=== PATIENT | female | born 1965 | race Caucasian/White ===

== ENCOUNTER → 2016-07-16 | Outpatient (REF) | payer MEDICARE, MEDICAID ==
[~2016-07-16] MED LIST: /FENT50PA TD; ATEN25TA OR; ATEN50TA2 PO; BACL10TA2 PO; BIOT300T PO; CARA1TAB2 PO; CETI10TA OR; DYAZ37.5; DYAZ37.5 PO; ESTR0.5T; ESTR2TAB PO; FENT12PA TD; FIBER THERAPY PO; FLON0.05; GABA300C2 PO; GLUC500T3 OR; GLUC500T3 PO; IBUP600T PO; IBUP800T; IMIT50TA PO; KLOR10TA; KLOR10TA PO; LOPI600T PO; MULT1TAB8 PO; OMEP40CA2 PO; PRIL40CA PO; PROBIOTIC ACIDOPHILU; PROZ10CA PO; REGL10TA6 PO; REGL5TAB2 PO; SAVE100T PO; SAVE50TA PO; SAVELLA PO; SENN8.6T5 PO; SUCR1TA PO; TRAM50TA2 PO; VICO5TAB; VICODINES TAB PO; VITA500C14 PO; VITATAB11 PO; VITATAB73 PO; XANA0.25 OR; XANA0.25 PO; ZANA2CAP PO; ZANA4TAB PO; ZOFR8TAB PO; [UNRECOGNIZED DRUG - OTHER]
[2016-07-16 12:52] LABS: MEAN CORPUSCULAR HEMOGLOBIN 29.5 pg (27.0-33.0); MEAN CORPUSCULAR VOLUME 84.2 fl (80.0-96.0); RED CELL DISTRIBUTION WIDTH 13.9 % (11.5-14.5)
[2016-07-16 12:53] LABS: ALBUMIN 3.8 GM/DL (3.2-5.2); ALBUMIN/GLOBULIN RATIO 1.27 (1.00-1.93); ALKALINE PHOSPHATASE 88 U/L (45-117); ALT/SGPT 24 U/L (12-78); ANION GAP 10 MEQ/L (8-16); AST/SGOT 9 U/L (15-37); BILIRUBIN,TOTAL 0.3 MG/DL (0.2-1.0); BLOOD UREA NITROGEN 20 MG/DL (7-18); CALCIUM LEVEL 9.4 MG/DL (8.5-10.1); CARBON DIOXIDE LEVEL 25 MEQ/L (21-32); CHLORIDE LEVEL 107 MEQ/L (98-107); CHOLESTEROL LEVEL 193 MG/DL (<200); CREATININE FOR GFR 1.43 MG/DL (0.55-1.02); FREE T4 0.99 NG/DL (0.76-1.46); GLOMERULAR FILTRATION RATE 41.2 (>51); GLUCOSE, FASTING 85 MG/DL (70-105); MAGNESIUM LEVEL 1.9 MG/DL (1.8-2.4); POTASSIUM SERUM 3.7 MEQ/L (3.5-5.1); SODIUM LEVEL 142 MEQ/L (136-145); TOTAL PROTEIN 6.8 GM/DL (6.4-8.2); TRIGLYCERIDES LEVEL 433 MG/DL (<150)
== END ==
LOC: M SFHCADAM 08:53
PROVIDERS: ATTEND Physician Assistant
DX: F17.210 Nicotine dependence, cigarettes, uncomplicated (principal); I10 Essential (primary) hypertension; E04.1 Nontoxic single thyroid nodule; E78.2 Mixed hyperlipidemia; E87.6 Hypokalemia; F32.9 Major depressive disorder, single episode, unspecified; K21.9 Gastro-esophageal reflux disease without esophagitis; Z79.899 Other long term (current) drug therapy
CPT/HCPCS: 80053; 80061; 82306; 83735; 84439; 84443; 85027; G0463

== ENCOUNTER → 2016-07-23 | Outpatient (CLI) | payer MEDICARE, MEDICAID ==
--- NOTE | 2016-07-23 15:19 | REP ---
BILATERAL RENAL ULTRASOUND: 07/23/2016 CLINICAL HISTORY: Acute renal failure. COMPARISON: CT abdomen without contrast 10/09/2013, renal ultrasound 07/27/2002. FINDINGS: Sonographic evaluation of the kidneys performed shows the right kidney 10.7 x 5.1 x 5.2 cm. It has normal cortical thickness and echogenicity. There is no hydronephrosis or hydroureter. I see no echogenic stones with shadowing. There is no cyst or solid mass or contour abnormality of the kidney. No perinephric fluid. Left kidney measures 10.5 by 5.2 x 6.1 cm. There is a moderate hydronephrosis with dilatation of the calyces collecting system and renal pelvis. There is a very minimal hydroureter proximally in that course of the ureter which is not seen below it. The bladder is partially filled measuring 6.8 x 3.5 x 4.8 cm. There is a normal right ureteral jet. A week or minimal left ureteral jet is observed. IMPRESSION: 1. Bilaterally normal renal size, cortical echogenicity and thickness without solid or cystic mass. 2. There is a moderate left hydronephrosis and proximal left hydroureter. Ureters not seen beyond this region due to gas shadowing. No visible stone or mass within the collecting system on this ultrasound. 3. Cortical echogenicity and thickness normal in renal size maintained 4. Bladder with vigorous right ureteral jet, weak left ureteral jet. No other finding. Signed by Gabriel Antonio MD 07/23/2016 04:20 P
== END ==
LOC: M RAD 13:40
PROVIDERS: ATTEND Physician Assistant
DX: N13.30 Unspecified hydronephrosis (principal)

== ENCOUNTER → 2016-07-29 | Outpatient (REF) | payer MEDICARE, MEDICAID ==
[~2016-07-29] MED LIST changes: +BUPR75TA5 PO; +CETI10TA PO; +DRIS50002 PO; +GABA600T PO; +K-TA10TA2 PO; +MONT10TA2 PO; +OXYC1TAB23 PO; +SUMA50TA2 PO; +TIZA4CAP3 PO; +ZOFR20TA PO
== END ==
LOC: M SMT 16:57
PROVIDERS: ATTEND Nurse Practitioner Women's Health
DX: N13.30 Unspecified hydronephrosis (principal); R10.9 Unspecified abdominal pain; R11.0 Nausea
CPT/HCPCS: 81001; 87086; G0463

== ENCOUNTER → 2016-07-31 | Outpatient (REF) | payer MEDICARE, MEDICAID ==
[~2016-07-31] MED LIST changes: -BUPR75TA5 PO; -CETI10TA PO; -DRIS50002 PO; -GABA600T PO; -K-TA10TA2 PO; -MONT10TA2 PO; -OXYC1TAB23 PO; -SUMA50TA2 PO; -TIZA4CAP3 PO; -ZOFR20TA PO
[2016-07-31 19:38] LABS: BASO # 0.1 K/mm3 (0.0-0.2); BASO % 0.6 % (0.0-1.0); EOS # 0.6 K/mm3 (0.0-0.50); EOS % 4.1 % (0.0-3.0); LARGE UNSTAINED CELL # 0.2 K/mm3 (0.0-0.4); LARGE UNSTAINED CELL % 1.3 % (0.0-4.0); LYMPH # 4.4 K/mm3 (1.5-4.5); LYMPH % 30.9 % (24.0-44.0); MEAN CORPUSCULAR HGB CONC 33.8 g/dl (32.0-36.5); MEAN CORPUSCULAR VOLUME 85.6 fl (80.0-96.0); MONO # 0.7 K/mm3 (0.0-0.8); MONO % 4.9 % (0.0-5.0); NEUTROPHILS # 8.3 K/mm3 (1.8-7.7); NEUTROPHILS % 58.2 % (36.0-66.0); PLATELET COUNT, AUTOMATED 314 k/mm3 (150-450); RED CELL DISTRIBUTION WIDTH 13.8 % (11.5-14.5); WHITE BLOOD COUNT 14.2 K/mm3 (4.0-10.0)
[2016-07-31 19:45] LABS: ALBUMIN 4.2 GM/DL (3.2-5.2); ALBUMIN/GLOBULIN RATIO 1.27 (1.00-1.93); BILIRUBIN,TOTAL 0.3 MG/DL (0.2-1.0); CALCIUM LEVEL 9.3 MG/DL (8.5-10.1); CREATININE FOR GFR 1.32 MG/DL (0.55-1.02); GLOMERULAR FILTRATION RATE 45.2 (>51); POTASSIUM SERUM 3.3 MEQ/L (3.5-5.1); TOTAL PROTEIN 7.5 GM/DL (6.4-8.2)
== END ==
LOC: M SFHCADAM 14:32
PROVIDERS: ATTEND Physician Assistant
DX: N17.9 Acute kidney failure, unspecified (principal); R10.9 Unspecified abdominal pain

== ENCOUNTER → 2016-08-03 | Outpatient (CLI) | payer MEDICARE, MEDICAID ==
--- NOTE | 2016-08-03 10:08 | REP ---
CT abdomen and pelvis without IV or bowel contrast: Comparisons are 10/09/2013 and six and 04/19/2008. On the prior studies the the patient had multiple bilateral nonobstructing renal calculi. On the study today there is left hydronephrosis. There are no left renal calculi. However, there are multiple calculi in the mid left ureter, one above the other. The most inferior calculus is the largest calculus measuring 8 mm short axis by 14 mm long axis and is at the level of the upper portion of the left sacroiliac articulation. Just superior to this is a second calculus measuring 6 mm short axis by 11 mm long axis. There are multiple nonobstructing right renal calculi as previously. There are no right ureteral calculi. There is no right hydronephrosis. The visualized lung nelson are unremarkable. The unenhanced hepatic parenchyma is homogeneous. The hepatosteatosis identified on 10/09/2013 is not apparent today. The gallbladder, pancreas and spleen are unremarkable and unchanged. The adrenals are unremarkable and unchanged. The abdominal aorta is unremarkable and unchanged. Occasional l calcified atheroma is again noted incidentally. There is no bowel distension. Mesentery is unremarkable. Pelvis: The patient has a hysterectomy. The vaginal cuff and adnexa are unremarkable. The bladder is unremarkable. The pelvic bowel loops are unremarkable. The appendix is unremarkable. There is no ascites or adenopathy. Impression: There are least to obstructive calculi in the mid to distal left ureter at the level of the superior portion of the left sacroiliac articulation as described, accompanied by left hydronephrosis. No left renal calculi are identified. There are multiple nonobstructing right renal calculi. There is no right hydronephrosis. There are no right renal calculi. Signed by Bhanu Bradford MD 08/03/2016 09:59 A
== END ==
LOC: M RAD 09:09
PROVIDERS: ATTEND Physician Assistant
DX: N13.1 Hydronephrosis with ureteral stricture, not elsewhere classified (principal)

== ENCOUNTER → 2016-08-13 | Outpatient (CLI) | payer MEDICARE, MEDICAID ==
[~2016-08-13] MED LIST changes: +BUPR75TA5 PO; +CETI10TA PO; +DRIS50002 PO; +GABA600T PO; +K-TA10TA2 PO; +MONT10TA2 PO; +OXYC1TAB23 PO; +SUMA50TA2 PO; +TIZA4CAP3 PO; +ZOFR20TA PO
--- NOTE | 2016-08-13 09:44 | REP ---
TWO CHEST: Two views of the chest are performed and compared to prior studies, most recent of which is 10/09/2013. There is linear fibroatelectatic change in each lung base. There is no acute infiltrate. The heart is normal in size. The mediastinal silhouette is unremarkable and unchanged. There are minor degenerative changes of the spine. IMPRESSION: Mild bibasilar fibroatelectatic changes. No acute infiltrate. Signed by Bhanu Jerome MD 08/13/2016 04:49 P
[2016-08-13 12:28] LABS: INR 0.91
[2016-08-13 12:33] LABS: MEAN CORPUSCULAR HEMOGLOBIN 29.6 pg (27.0-33.0); MEAN CORPUSCULAR HGB CONC 34.4 g/dl (32.0-36.5); MEAN CORPUSCULAR VOLUME 86.2 fl (80.0-96.0); RED CELL DISTRIBUTION WIDTH 13.7 % (11.5-14.5); WHITE BLOOD COUNT 7.3 K/mm3 (4.0-10.0)
[2016-08-13 12:49] LABS: CALCIUM LEVEL 9.7 MG/DL (8.5-10.1); CREATININE FOR GFR 1.25 MG/DL (0.55-1.02); GLOMERULAR FILTRATION RATE 48.1 (>51); POTASSIUM SERUM 3.7 MEQ/L (3.5-5.1)
== END ==
LOC: M ADAMS 08:55
PROVIDERS: ATTEND Nurse Practitioner Women's Health
DX: Z01.818 Encounter for other preprocedural examination (principal); N13.2 Hydronephrosis with renal and ureteral calculous obstruction; N17.9 Acute kidney failure, unspecified; F17.200 Nicotine dependence, unspecified, uncomplicated; I10 Essential (primary) hypertension; J45.20 Mild intermittent asthma, uncomplicated; Z79.899 Other long term (current) drug therapy
CPT/HCPCS: 71020; 80048; 85027; 85610; 85730; G0463

== ENCOUNTER → 2016-08-17 | Day surgery (SDC) | payer MEDICARE, MEDICAID ==
[~2016-08-17] VITALS: Ht 162.6 cm; Wt 81.6 kg
[~2016-08-17] MED LIST changes: +CONRAY-60 60% 50ML VIAL (Q9961) As Ordered ONE; +LIDOCAINE 2% INJ 100 MG/5 ML SDV (FOR ANES.) As Ordered ONE; +LR 1,000 ML IV SCH; +METOCLOPRAMIDE INJ 10MG/2ML VIAL (J2765) IV PRN; +MIDAZOLAM INJ 2 MG/2 ML VIAL (J2250) As Ordered ONE; +ONDANSETRON 4MG/2ML VIAL (J2405) As Ordered ONE; +ONDANSETRON 4MG/2ML VIAL (J2405) IV PRN; +PERCOCET 5MG/325MG TAB PO PRN; +PROPOFOL 200 MG/20 ML VIAL As Ordered ONE; +diphenhydrAMINE INJ 50MG/ML VIAL (J1200) As Ordered ONE; +fentaNYL 100 MCG/2 ML INJECTION (J3010) As Ordered ONE; +fentaNYL 100 MCG/2 ML INJECTION (J3010) IV PRN; +oxyBUTYnin 5 MG TAB PO PRN
[2016-08-17] MEDS: LR 1,000 ML IV SCH ×2 (06:57→07:43)
--- NOTE | 2016-08-17 11:27 | REP ---
RETROGRADE PYELOGRAM: 08/17/2016 CLINICAL HISTORY: Left ureteral stone. COMPARISON: CT 08/03/2016. FINDINGS: Three images from C-arm fluoroscopy provided to Dr. Cuellar of the urology division. Initial image shows the catheter and wire in the ureter with the wire curving into the renal pelvis. Second image shows the proximal course of the pigtail stent coiled in the renal pelvis. Third image shows the distal coil of the left ureteral stent in the bladder. FLUOROSCOPY TIME: 27 seconds. Signed by Gabriel Antonio MD 08/17/2016 05:13 P
[2016-08-17 13:20] VITALS: BP 142/78
--- NOTE | 2016-08-17 14:31 | RO ---
DATE OF PROCEDURE: 08/17/2016 PREPROCEDURE DIAGNOSIS: Left ureteral stones. POSTPROCEDURE DIAGNOSIS: Left ureteral stones. PROCEDURE: Cystoscopy, left ureteroscopy with laser lithotripsy and basket extraction of stones, left retrograde pyelogram with intraoperative interpretation of images, left ureteral stent placement. SURGEON: Dr. Avni Cuellar PIPE LINE MAINTENANCE SUPERVISOR: None. ANESTHESIA: General. OPERATIVE INDICATIONS: This is a 51-year-old female who has been found to have a large obstructing left ureteral stone as well as a few smaller stones in the left ureter. She was also found to have a nonobstructing stone in the right kidney. It was recommended she be brought to the operating room today for treatment of the left sided ureteral stones. DESCRIPTION OF PROCEDURE: The patient was brought to the operating room where general anesthesia was induced. Prophylactic antibiotics were infused. She was then placed in dorsal lithotomy position and prepped and draped in the usual sterile fashion. A rigid cystoscope was inserted into the urethral meatus and advanced to the bladder. Once within the bladder, a wire was advanced up the left collecting system. Of note, the wire would not go past the distal left ureter. At this point, we went in with the ureteroscope and the distal ureter appeared to be completely obstructed by an impacted stone. At this point, a 200 micron laser fiber was utilized to fragment the stone. It took a moderate amount of time to keep fragmenting the stone until the stone was broken up in several smaller pieces. I was able to get into the more proximal ureter after the stone had been fragmented into several smaller pieces. At this point, the wire was advanced all the way up to the left collecting system. Of note, the proximal ureter was moderate to severely dilated. Also of note where the stone was impacted there was a moderate amount of scar tissue for at least a 1/2 cm to 1 cm in length in the distal left ureter. Ultimately, I was able to fragment all the stones and remove all the stones. After that was done, the more proximal ureter was examined and no additional stones were seen. At this point, the ureteroscope was withdrawn and the wire was utilized to advance the 7 Fijian x 22-32 cm JJ ureteral stent up the left collecting system. The wire was then removed and there were adequate curls of the stent in the left renal pelvis and the bladder. The bladder was then emptied of all fluids and this marked the conclusion of the procedure. The patient was then taken out of dorsal lithotomy position, awakened from anesthesia and transported to the recovery room in stable condition. ESTIMATED BLOOD LOSS: 0 mL. COMPLICATIONS: None. SPECIMEN: Kidney stone fragments. PLAN: I will plan to leave this patient's stent in place for at least three to four weeks given the moderate amount of scarring in the distal left ureter. The patient also has a 5-6 mm right kidney stone for which I will likely recommend an extracorporeal shockwave lithotripsy. This can be performed in three to four weeks and her left ureteral stent can be removed at the same time. THIAGO
== END | disposition home or self-care (01) ==
LOC: M SDC 06:05
PROVIDERS: ATTEND Urology
DX: N20.1 Calculus of ureter (principal); I10 Essential (primary) hypertension; M79.7 Fibromyalgia; F41.9 Anxiety disorder, unspecified; F32.9 Major depressive disorder, single episode, unspecified; K21.9 Gastro-esophageal reflux disease without esophagitis; E04.9 Nontoxic goiter, unspecified; M51.9 Unspecified thoracic, thoracolumbar and lumbosacral intervertebral disc disorder; E78.5 Hyperlipidemia, unspecified; N28.9 Disorder of kidney and ureter, unspecified; F17.210 Nicotine dependence, cigarettes, uncomplicated; Z79.899 Other long term (current) drug therapy; Z85.43 Personal history of malignant neoplasm of ovary; Z92.21 Personal history of antineoplastic chemotherapy; Z88.8 Allergy status to other drugs, medicaments and biological substances; Z88.5 Allergy status to narcotic agent; Z91.040 Latex allergy status; Z91.041 Radiographic dye allergy status; Z91.018 Allergy to other foods; Z88.1 Allergy status to other antibiotic agents; Z91.013 Allergy to seafood; Z88.2 Allergy status to sulfonamides
CPT/HCPCS: 52352; 52356; 74420; 82360; 88300; C1726; C1894; C2617; J0690; J1200; J2250; J2405; J3010; Q9961

== ENCOUNTER → 2016-08-21 | Outpatient (REF) | payer MEDICARE, MEDICAID ==
[~2016-08-21] MED LIST changes: -CONRAY-60 60% 50ML VIAL (Q9961) As Ordered ONE; -LIDOCAINE 2% INJ 100 MG/5 ML SDV (FOR ANES.) As Ordered ONE; -LR 1,000 ML IV SCH; -METOCLOPRAMIDE INJ 10MG/2ML VIAL (J2765) IV PRN; -MIDAZOLAM INJ 2 MG/2 ML VIAL (J2250) As Ordered ONE; -ONDANSETRON 4MG/2ML VIAL (J2405) As Ordered ONE; -ONDANSETRON 4MG/2ML VIAL (J2405) IV PRN; -PERCOCET 5MG/325MG TAB PO PRN; -PROPOFOL 200 MG/20 ML VIAL As Ordered ONE; -diphenhydrAMINE INJ 50MG/ML VIAL (J1200) As Ordered ONE; -fentaNYL 100 MCG/2 ML INJECTION (J3010) As Ordered ONE; -fentaNYL 100 MCG/2 ML INJECTION (J3010) IV PRN; -oxyBUTYnin 5 MG TAB PO PRN
[2016-08-21 18:04] LABS: CALCIUM LEVEL 9.2 MG/DL (8.5-10.1); CREATININE FOR GFR 1.19 MG/DL (0.55-1.02); GLOMERULAR FILTRATION RATE 50.9 (>51); POTASSIUM SERUM 3.5 MEQ/L (3.5-5.1)
[2016-08-21 18:19] LABS: MEAN CORPUSCULAR HGB CONC 33.2 g/dl (32.0-36.5); MEAN CORPUSCULAR VOLUME 87.3 fl (80.0-96.0); RED CELL DISTRIBUTION WIDTH 13.8 % (11.5-14.5); WHITE BLOOD COUNT 7.7 K/mm3 (4.0-10.0)
== END ==
LOC: M LAB REF 17:18
PROVIDERS: ATTEND Urology
DX: Z01.818 Encounter for other preprocedural examination (principal); N20.0 Calculus of kidney

== ENCOUNTER → 2016-09-17 | Day surgery (SDC) | payer MEDICARE, MEDICAID ==
[~2016-09-17] VITALS: Ht 157.5 cm; Wt 82.6 kg
[~2016-09-17] MED LIST changes: +DITR5TAB PO; +HYDR-3713 PO; +LIDOCAINE 2% INJ 100 MG/5 ML SDV (FOR ANES.) As Ordered ONE; +LR 1,000 ML IV SCH; +PERCOCET 5MG/325MG TAB As Ordered ONE; +PERCOCET 5MG/325MG TAB PO PRN; +PROPOFOL 200 MG/20 ML VIAL As Ordered ONE; +ceFAZolin 2 GM/D5W 50 ML IV BAG (J0690) As Ordered ONE
--- NOTE | 2016-09-17 10:45 | REP ---
KUB ABDOMEN AND PELVIS: KUB film of the abdomen and pelvis is performed. The bowel gas pattern is normal. A left ureteral stent appears to be in good position. Calcification overlies the lower pole of the right kidney, measuring approximately 4 mm in diameter. IMPRESSION: Left ureteral stent. 4 mm calculus lower pole right kidney. Signed by Bhanu Jerome MD 09/17/2016 04:20 P
[2016-09-17 12:20] VITALS: BP 140/83
--- NOTE | 2016-09-18 14:00 | RO ---
DATE OF PROCEDURE: 09/17/2016 PREPROCEDURE DIAGNOSIS: Kidney stones. POSTPROCEDURE DIAGNOSIS: Kidney stones. PROCEDURE: Right Extracorporeal shock wave lithotripsy, cystoscopy, removal of left ureteral stent. SURGEON: Dr. Avni Cuellar MACHINE CHOCOLATE MOLDER: None ANESTHESIA: Monitored anesthesia care (MAC). OPERATIVE INDICATIONS: This is a 51-year-old female who was originally seen for bilateral kidney stones. She underwent a left ureteroscopy with laser lithotripsy and stent placement several weeks ago. She still had a 5 mm stone in the right kidney. She was brought to the operating room today for the above listed procedure. DESCRIPTION OF PROCEDURE: The patient was brought to the operating room and MAC anesthesia was administered. Prophylactic antibiotics were infused. She was then placed in supine position for preparation for the above listed procedure. She was then prepped and draped in the usual sterile fashion. A rigid cystoscope was inserted into the bladder and the left ureteral stent was seen and grasped and removed from the ureter and the bladder intact. At this point, she was positioned for right sided shockwave lithotripsy. Fluoroscopy was utilized to monitor stone position and fragmentation throughout the procedure. Shockwaves were then delivered to the right sided kidney stone, ungated. The stone did appear to fragment well. After 2500 shocks, the procedure was concluded. The patient was then awakened from anesthesia and transported to the recovery room in stable condition. ESTIMATED BLOOD LOSS: 0 mL. COMPLICATIONS: None. SPECIMENS: None. PLAN: The patient will followup in the clinic in a few weeks with imaging prior to assess for residual stone burden. [facility] CENTERArie
== END | disposition home or self-care (01) ==
LOC: M SDC 07:41
PROVIDERS: ATTEND Urology
DX: N20.0 Calculus of kidney (principal); R00.0 Tachycardia, unspecified; M51.9 Unspecified thoracic, thoracolumbar and lumbosacral intervertebral disc disorder; F41.9 Anxiety disorder, unspecified; F32.9 Major depressive disorder, single episode, unspecified; I10 Essential (primary) hypertension; M79.7 Fibromyalgia; E78.5 Hyperlipidemia, unspecified; E04.9 Nontoxic goiter, unspecified; Z85.41 Personal history of malignant neoplasm of cervix uteri; F17.210 Nicotine dependence, cigarettes, uncomplicated; Z88.8 Allergy status to other drugs, medicaments and biological substances; Z88.1 Allergy status to other antibiotic agents; Z88.5 Allergy status to narcotic agent; Z88.2 Allergy status to sulfonamides; Z91.013 Allergy to seafood; Z91.040 Latex allergy status; Z91.041 Radiographic dye allergy status; Z91.018 Allergy to other foods; Z79.899 Other long term (current) drug therapy
CPT/HCPCS: 50590; 52310; 74000; J0690

== ENCOUNTER → 2016-09-23 | Outpatient (REF) | payer MEDICARE, MEDICAID ==
[~2016-09-23] MED LIST changes: -LIDOCAINE 2% INJ 100 MG/5 ML SDV (FOR ANES.) As Ordered ONE; -LR 1,000 ML IV SCH; -PERCOCET 5MG/325MG TAB As Ordered ONE; -PERCOCET 5MG/325MG TAB PO PRN; -PROPOFOL 200 MG/20 ML VIAL As Ordered ONE; -ceFAZolin 2 GM/D5W 50 ML IV BAG (J0690) As Ordered ONE
[2016-09-23 13:05] LABS: CALCIUM LEVEL 9.7 MG/DL (8.5-10.1); CREATININE FOR GFR 1.07 MG/DL (0.55-1.02); GLOMERULAR FILTRATION RATE 57.6 (>51); POTASSIUM SERUM 3.6 MEQ/L (3.5-5.1)
== END ==
LOC: M SFHCADAM 09:56
PROVIDERS: ATTEND Physician Assistant
DX: N17.9 Acute kidney failure, unspecified (principal)
CPT/HCPCS: 80048; G0463

== ENCOUNTER 2017-02-01 17:13 | Emergency (ER) | payer MEDICARE, MEDICAID ==
[~2017-02-01] VITALS: Ht 157.5 cm; Wt 71.8 kg
[2017-02-01 17:13] VITALS: BP 132/80
[~2017-02-01 17:13] MED LIST changes: -CARA1TAB2 PO; +CARA1TAB6 PO
[2017-02-01] MEDS ORDERED: ALBU17IN (17:18)
== END 2017-02-01 20:13 | disposition left against medical advice (07) ==
LOC: M ED 17:13
DX: M54.9 Dorsalgia, unspecified (principal); Z53.21 Procedure and treatment not carried out due to patient leaving prior to being seen by health care provider

== ENCOUNTER → 2017-02-15 | Outpatient (CLI) | payer MEDICARE, MEDICAID ==
[~2017-02-15] MED LIST changes: +ALBU17IN
--- NOTE | 2017-03-02 01:50 | ECWPNPC ---
PATIENT NAME: ARIEL DARDEN : 1965 GENDER: FEMALE VISIT DATE: 02/15/2017 DISCHARGE DATE: 02/15/17 0000 VISIT LOCKED DATE TIME: PHYSICIAN: AMBIKA KENT RESOURCE: AMBIKA KENT REASON FOR APPOINTMENT 1. LUMBAGO/ LEFT SIDE SCIATICA HISTORY OF PRESENT ILLNESS FALL RISK SCREENING: HERE PER REFERRAL OG VIDHYA HOPKINS FOR CHRONIC NECK AND LOW BACK PAIN.HAS BEEN SEEING DR. CLEARY,PAIN SOLUTIONS OVER THE PAST TWO YEARS AND RECIEVING INJECTIONS AND MEDICATION MANAGEMENT.CURRENTLY USING GABAPENTIN 600MG TID,TIZANIDINE 4MG TID AND SAVELLA 50MG BID.HAD TPI WITH THIS AM.SHE IS HERE TODAY BECAUSE SHE WANTS A REFRRAL TO SEE NEUROLGY OR A SURGEON.DENNIS RECOMMENDED THAT SHE DISCUSS THIS WITH DR. CLEARY OR PRIMARY CARE. SCREENING :NO FALLS IN THE PAST YEAR PAIN SCREENING: PATIENT HAS A COMPLAINT OF ACUTE OR CHRONIC PAIN :YES CURRENT MEDICATIONS TAKING GABAPENTIN 600 MG TABLET 1 TABLET ORALLY THREE TIMES DAY TAKING POTASSIUM CHLORIDE 10 10 MEQ TABLET 2 TABLETS ORAL ONCE A DAY TAKING VENTOLIN HFA 90 MCG/ACT AEROSOL SOLUTION 2 PUFFS NEEDED INHALATION EVERY 4 HRS NEEDED FOR SOB TAKING SAVELLA 50 MG TABLET 2 TABLET AM ORALLY ONCE A DAY, NOTES: [facility] - PAIN CLINIC TAKING SUMATRIPTAN SUCCINATE 50 MG TABLET 1 TABLET NEEDED ONE TIME (MAY REPEAT DOSE IN 1 HOUR) ORALLY DIRECTED MDD = 2 TABS TAKING MONTELUKAST SODIUM 10 MG TABLET 1 TABLET IN THE EVENING ORALLY ONCE A DAY TAKING SUCRALFATE 1 GM TABLET TAKE 1 TABLET BY MOUTH ON AN EMPTY STOMACH FOUR TIMES A DAY TAKING OMEPRAZOLE 40MG 40 TABLET 1 TABLET ORAL TWICE A DAY TAKING DRISDOL 90395 UNIT CAPSULE 1 CAPSULE ORALLY WEEKLY TAKING FLONASE ALLERGY RELIEF 50 MCG/ACT SUSPENSION 1 SPRAY IN EACH NOSTRIL NASALLY ONCE A DAY TAKING FLUOXETINE 20 20MG TABLET 2 TABLETS ORAL ONCE A DAY TAKING BISOPROLOL FUMARATE 5 MG TABLET 1 TABLET ORALLY ONCE A DAY TAKING CETIRIZINE HCL 10 MG TABLET 1 TABLET ORALLY ONCE A DAY TAKING TRIAMTERENE-HCTZ 37.5-25 MG TABLET 1 TAB ORALLY ONCE DAILY TAKING TIZANIDINE HCL 4 MG TABLET 1 TABLET NEEDED ORALLY THREE TIMES A DAY NOT-TAKING ATENOLOL 50 50MG TABLET 1 TABLET ORAL ONCE A DAY NOT-TAKING AMOXICILLIN 500 MG CAPSULE 1 CAPSULE ORALLY EVERY 12 HRS NOT-TAKING HYDROCODONE-ACETAMINOPHEN 5-325 MG TABLET 1 TABLET ORALLY EVERY 6 HRS NEEDED FOR PAIN (MDD 4) DISCONTINUED IMIQUIMOD 5 % CREAM 1 APPLICATION TO AFFECTED AREA AT BEDTIME EXTERNALLY USE TWICE WEEKLY FOR 12 WEEKS DISCONTINUED FLOMAX 0.4 MG CAPSULE 1 CAPSULE 30 MINUTES AFTER THE SAME MEAL EACH DAY ORALLY ONCE A DAY DISCONTINUED CLOBETASOL PROPIONATE 0.05 % OINTMENT 1 APPLICATION TO AFFECTED AREA EXTERNALLY TO SORE IN MOUTH DAILY NEEDED DISCONTINUED CYCLOBENZAPRINE HCL 5 MG TABLET 1 TABLET NEEDED ORALLY THREE TIMES A DAY MEDICATION LIST REVIEWED AND RECONCILED WITH THE PATIENT PAST MEDICAL HISTORY HYPERTENSION MILD - ON ATENOLOL FOR HR CONTROL AND ANXIETY FIBROMYALGIA MIGRAINE H/A ANXIETY/DEPRESSION GERD WITH H/O BLEEDING ULCERS SPINAL INJURY - 5 BULGING/HERNIATED DISCS - WAS GETTING INJECTIONS WITH PAIN CLINIC CARIDAD DAUGHTER ALLERGIC RHINNITIS - PREVIOUSLY FOLLOWED BY CHARGEBACK SPECIALIST. WAS ON ALLERGY SHOTS FOR YEARS. NOW MAINTAINED ON MONOLUKAST AND CERTRIZINE. GOITER - PER US 2008, F/U 08/2015 - NO CHANGE TOBACCO ABUSE - UNWILLING TO QUITE HYPERLIPIDEMIA KIDNEY STONES ALLERGIES BEES: ANAPHYLAXIS: ALLERGY SHRIMP: ANAPHYLAXIS: ALLERGY IODINE: ANAPHYLAXIS: ALLERGY SULFA (FOR ALLERGY USE ONLY): ANAPHYLAXIS: ALLERGY TOPAMAX: ANXIETY, RED DOTS ALL OVER BODY: ALLERGY FLECTOR: RASH: ALLERGY DOXYCYCLINE HYCLATE: FACE SWELLED UP: ALLERGY MORPHINE SULFATE: NAUSEA/VOMITING: ALLERGY NABUMETONE: , WHOLE BODY BRIGHT REC, VOMITTING: ALLERGY SEASONAL: STUFFY, RUNNY NOSE, ITCHY EYES: ALLERGY SURGICAL HISTORY D&C X 5 VAGINAL HYSTERECTOMY - DR. ESCAMILLA 1998 LSO FOR CYSTS 2005 APPENDECTOMY T & A VAGINAL BX'S RSO IN [place] (IN HER 30'S) FOR A TERATOMA STENT KIDNEY REMOVED 09/2016 LITHOTRIPSY-RIGHT KIDNEY 09/2016 FAMILY HISTORY FATHER: 62 YRS, THROAT CANCER, DIAGNOSED WITH CANCER MOTHER: ALIVE 72 YRS, HYPERTENSION, ETOH ABUSER, DIAGNOSED WITH HYPERTENSION SIBLINGS: ALIVE 56 YRS, OBESE AND PROBLEMS STEMMING FROM SAME, DIAGNOSED WITH OTHER 2 SON(S) , 1 DAUGHTER(S) - HEALTHY. FATHER--THROAT CANCER.BROTHER-OBESITYDENIES BREAST, COLON OR OVARIAN CANCER. SOCIAL HISTORY GENERAL: TOBACCO USE ARE YOU A:CURRENT SMOKER ARE YOU INTERESTED IN QUITTING?NOT READY TO QUIT COUNSELED THE PATIENT ON SMOKING EFFECTS, EDUCATION [id number]/09/2017 HOW MANY CIGARETTES A DAY DO YOU SMOKE?11-20 HOW SOON AFTER YOU WAKE UP DO YOU SMOKE YOUR FIRST CIGARETTE?6-30 MIN HOW OFTEN DO YOU SMOKE CIGARETTES?EVERY DAY PATIENT COUNSELED ON THE DANGERS OF TOBACCO USE AND URGED TO QUIT:02/15/2017 SMOKING CESSATION INFORMATION GIVEN07/31/2016 02/15/17 PT DECLINED BMI CARE GOAL FOLLOW-UP ABOVE NORMAL BMI FOLLOW-UPDIETARY MANAGEMENT EDUCATION, GUIDANCE, AND COUNSELING ALCOHOL SCREENING DID YOU HAVE A DRINK CONTAINING ALCOHOL IN THE PAST YEAR?YES HOW OFTEN DID YOU HAVE A DRINK CONTAINING ALCOHOL IN THE PAST YEAR?MONTHLY OR LESS (1 POINT) HOW MANY DRINKS DID YOU HAVE ON A TYPICAL DAY WHEN YOU WERE DRINKING IN THE PAST YEAR?1 OR 2 (0 POINTS) HOW OFTEN DID YOU HAVE SIX OR MORE DRINKS ON ONE OCCASION IN THE PAST YEAR?NEVER (0 POINTS) POINTS1 INTERPRETATIONNEGATIVE RECREATIONAL DRUG USE DENIES. CAFFEINE CAFFEINE USE?YES HOW OFTEN AND HOW MUCH? 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 DIET: ONCE DAILY, TRIES TO HAVE HEALTHY MEAL. EXERCISE: WALKS DAILY. OTHERS AT HOME: PT AND SON, PLUS ADOPTED SON. OTHER KIDS IN AND OUT.. 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 LEARNING BARRIERS / SPECIAL NEEDS CHANGE FROM LAST VISIT?NO BARRIERS TO LEARNING?NO HEARING IMPAIRED?NO VISION IMPAIRED?NO COGNITIVELY IMPAIRED?NO READINESS TO LEARN?YES LEARNING PREFERENCES?NO LEARNING CAPABILITIES PRESENT?YES EMOTIONAL BARRIERS?NO SPECIAL DEVICES?NO CONSUMER SERVICES CONSULTANT NEEDED?NO PAIN CLINIC PFS, CLERGY, PUBLIC HEALTH REFERRALS PFS REFERRAL NEEDED?NO CLERGY REFERRAL NEEDED?NO PUBLIC HEALTH REFERRAL NEEDED?NO HAS THE PATIENT BEEN EDUCATED REGARDING HIS/HER PLAN OF CARE?YES HAS THE PATIENT BEEN EDUCATED REGARDING PAIN, THE RISK FOR PAIN, THE IMPORTANCE OF EFFECTIVE PAIN MANAGEMENT, AND THE PAIN ASSESSMENT PROCESS?YES ADVANCE DIRECTIVES HEALTH CARE PROXY?NO WOULD YOU LIKE MORE INFORMATION?NO DO YOU HAVE A DNR?NO WOULD YOU LIKE MORE INFORMATION?NO LIVING WILL?NO WOULD YOU LIKE MORE INFORMATION?NO POWER OF SAS DEVELOPER?NO WOULD YOU LIKE MORE INFORMATION?NO TRAVEL OUTSIDE US: DENIES. : YES. DOMESTIC VIOLENCE YES. WITH FIRST . HAD SOME COUNSELING. . HOSPITALIZATION/MAJOR DIAGNOSTIC PROCEDURE SUGERY RELATED 2017 STOMACH ULCER 2014 REVIEW OF SYSTEMS REVIEWED BY: PROVIDER: AMBIKA BIRD . CONSTITUTIONAL: ANY CHANGE IN YOUR MEDICAL CONDITION? NO . CHILLS NO . FEVER NO . INFECTION: DO YOU HAVE NEW INFECTIONS? NO . DO YOU HAVE HISTORY OF MRSA? NO . MUSCULOSKELETAL: ANY NEW PATTERNS OF PAIN OR NUMBNESS? YES, PAIN IN NECK X 3 WEEKS--HAS BEEN TO ER, PCP AND DR. CLEARY. NUMBNESS IN FINGERTIPS OF LEFT HAND X 3 WEEKS . SYTEMIC LUPUS NO . GASTROENTEROLOGY: ANY NEW CHANGE IN BOWEL CONTROL? YES, SEVERE DIARRHEA X 2 MONTHS . BARRETTS ESOPHAGUS NO . CIRRHOSIS NO . HEPATITIS NO . LIVER FAILURE NO . ACID REFLUX YES . UNEXPLAINED WEIGHT LOSS NO . GENITOURINARY: ANY NEW CHANGE IN BLADDER CONTROL? YES, MORE OF AN URGENCY . IS THERE A CHANCE YOU COULD BE ? NO . HEMATOLOGY/LYMPH: DO YOU TAKE ANY BLOOD THINNERS? (FOR EXAMPLE- COUMADIN, PLAVIX, AGGRENOX, PLATEL, PRADAXA, OR XARELTO) NO . WHEN WAS YOUR LAST DOSE? DATE: TIME: . LOW PLATELET COUNT NO, STATES SHE'S BEEN TOLD HER PLATELETS "DON'T LINE UP" CORRECTLY CAUSING HER TO HAVE EXCESSIVE BLEEDING TIME . SICKLE CELL DISEASE NO . VON WILLIEBRANDS NO . FACTOR V LEIDEN NO . THALLASEMIA NO . ANEMIA NO . EASY BRUISING YES, NOT ON ANTICOAGULANTS. BRUISES AND DOESN'T KNOW HOW SHE GOT THEM . NEUROLOGY: HAVE YOU FALLEN IN THE PAST 6 MONTHS? YES, STATES SHE FALLS ALL THE TIME. HER LEFT FOOT TURN IN AND SHE TRIPS OVER IT ALL THE. NO MAJOR INJURIES . ANY NEW EXTREMITY NUMBNESS OR WEAKNESS? YES, GENERALIZED WEAKNESS LATELY . HEAD INJURY NO . DEMENTIA NO . CEREBRAL PALSY NO . MULTIPLE SCLEROSIS NO . DIZZINESS NO . HEADACHE ADMITS, FREQUENT MIGRAINES . STROKES NO . VERTIGO NO . CARDIOLOGY: DO YOU HAVE A PACEMAKER OR DEFIBRILLATOR? NO . ANGINA NO . HEART ATTACK NO . HEART SURGERY NO . CONGESTIVE HEART FAILURE/FLUID OVERLOAD NO . CHEST PAIN NO . HIGH BLOOD PRESSURE NO, ON MEDICATION(S) . IRREGULAR HEART BEAT YES--HER PULSE WILL GO EXTREMELY HIGH. IS ON BISOPROLOL . RESPIRATORY: HAVE YOU BEEN SICK IN THE PAST WEEK? NO . FEVER NO . FLU LIKE SYMPTOMS? NO . CPAP NO . BYPAP NO . ASTHMA YES . EMPHYSEMA NO . CHRONIC LUNG DISEASES NO . SHORTNESS OF BREATH ON EXERTION NO . COUGH NO . SNORING NO . INTEGUMENTARY: DO YOU HAVE ANY RASHES OR OPEN SORES? NO . ALLERGIC/IMMUNO: ARE YOU ALLERGIC TO SHELLFISH OR IV DYE? YES, SHELLFISH, INJESTED IODINE, PREFERS NOT TO HAVE IV DYE DUE TO CHANCE OF REACTION . ANY NEW ALLERGIES? NO . PSYCHIATRIC: DO YOU HAVE THOUGHTS OF HURTING YOURSELF OR SOMEONE ELSE? NO . ARE YOU ABUSED, NEGLECTED, OR IN AN UNSAFE ENVIRONMENT? NO . ENDOCRINOLOGY: ARE YOU DIABETIC? NO . THYROID DISORDER YES, HAS GOITER ON THYROID THAT SHE HAS MONITORED WITH ULTRA SOUND . OTHER: DO YOU NEED ANY PRESCRIPTIONS? NO . IF YES, PLEASE LIST: ____ . ANY NEW PROBLEMS WITH YOUR MEDICATIONS? NO . WHEN DID YOU LAST EAT? ____ . WHEN DID YOU LAST DRINK? ____ . WHAT DID YOU LAST DRINK? ____ . NAME OF PERSON DRIVING YOU HOME? ____ . DO YOU HAVE ANY OTHER QUESTIONS OR CONCERNS YES, WOULD LIKE TO DISCUSS A NEUROLOGY CONSULT . VITAL SIGNS WT 173 LBS, HT 5'2", BMI 31.64 INDEX, BP 132/89 MM HG, HR 74 /MIN, RR 16 /MIN, TEMP 97.7 F, OXYGEN SAT % 98, REVIEWED BY: JORGE. ASSESSMENTS CERVICALGIA - M54.2 (PRIMARY) TREATMENT CERVICALGIA NOTES: FOLLOW UP WITH DR. CLEARY AND VIDHYA HOPKINS. PROCEDURE CODES FA211 ESTABILISHED PATIENT [facility] CHARGE DISPOSITION & COMMUNICATION FOLLOW UP NO F/U NECESSARY ELECTRONICALLY SIGNED BY PELON FUNEZ ON 03/01/2017 AT 09:11 PM EDT DISCLAIMER : THIS IS A VISIT SUMMARY EXTRACTED FROM THE [employer] ([employer]) CHART. IT IS NOT A COPY OF THE [employer] PROGRESS NOTE. THIAGO
== END ==
LOC: M PAIN 10:15
PROVIDERS: ATTEND Nurse Practitioner Family
DX: M54.2 Cervicalgia (principal); M54.5 Low back pain; G89.29 Other chronic pain; I12.9 Hypertensive chronic kidney disease with stage 1 through stage 4 chronic kidney disease, or unspecified chronic kidney disease; F32.9 Major depressive disorder, single episode, unspecified; K21.9 Gastro-esophageal reflux disease without esophagitis; F17.210 Nicotine dependence, cigarettes, uncomplicated; E55.9 Vitamin D deficiency, unspecified; N18.3 Chronic kidney disease, stage 3 (moderate); Z79.899 Other long term (current) drug therapy; Z91.030 Bee allergy status; Z91.013 Allergy to seafood; Z88.3 Allergy status to other anti-infective agents; Z88.2 Allergy status to sulfonamides; Z88.8 Allergy status to other drugs, medicaments and biological substances; Z88.5 Allergy status to narcotic agent; J30.2 Other seasonal allergic rhinitis

== ENCOUNTER → 2017-03-17 | Outpatient (REF) | payer MEDICARE, MEDICAID | LOC: M SFHCADAM 12:21 | PROVIDERS: ATTEND Physician Assistant | DX: K52.9 Noninfective gastroenteritis and colitis, unspecified (principal) | CPT/HCPCS: 87507; G0463 ==

== ENCOUNTER → 2017-06-19 | Outpatient (REF) | payer MEDICARE, MEDICAID ==
[2017-06-19 13:19] LABS: INFLUENZA A AMPLIFICATION NEGATIVE (NEGATIVE); INFLUENZA B AMPLIFICATION NEGATIVE (NEGATIVE); RSV AMPLIFICATION NEGATIVE (NEGATIVE)
== END ==
LOC: M LAB REF 12:08
DX: Z11.59 Encounter for screening for other viral diseases (principal)
CPT/HCPCS: 87502

== ENCOUNTER → 2017-07-23 | Outpatient (REF) | payer MEDICARE, MEDICAID ==
[2017-07-23 21:50] LABS: FREE T4 0.89 NG/DL (0.76-1.46)
[2017-07-23 21:50] LABS: MAGNESIUM LEVEL 1.8 MG/DL (1.8-2.4)
== END ==
LOC: M SFHCADAM 16:46
DX: E87.6 Hypokalemia (principal); F17.210 Nicotine dependence, cigarettes, uncomplicated; F41.8 Other specified anxiety disorders; M25.40 Effusion, unspecified joint; J01.10 Acute frontal sinusitis, unspecified
CPT/HCPCS: 83735

== ENCOUNTER → 2017-07-23 | Outpatient (CLI) | payer MEDICARE, MEDICAID ==
[2017-07-23 21:36] LABS: HEMATOCRIT 45.5 % (36.0-47.0); HEMOGLOBIN 15.8 g/dl (12.0-16.0); MEAN CORPUSCULAR HEMOGLOBIN 29.6 pg (27.0-33.0); MEAN CORPUSCULAR HGB CONC 34.7 g/dl (32.0-36.5); MEAN CORPUSCULAR VOLUME 85.2 fl (80.0-96.0); PLATELET COUNT, AUTOMATED 302 10^3/uL (150-450); RED BLOOD COUNT 5.34 10^6/uL (4.00-5.40); RED CELL DISTRIBUTION WIDTH 13.5 % (11.5-14.5)
[2017-07-23 21:37] LABS: ADD MANUAL DIFFER YES; DIFF SLIDE NUMBER 317; POSITIVE DIFF POS FLAG; WHITE BLOOD COUNT 12.5 10^3/uL (4.0-10.0)
[2017-07-23 21:39] LABS: INR 0.89; PROTHROMBIN TIME 12.1 SECONDS (12.4-14.5)
[2017-07-23 21:48] LABS: ALBUMIN/GLOBULIN RATIO 1.18 (1.00-1.93); ALKALINE PHOSPHATASE 96 U/L (45-117); ALT/SGPT 37 U/L (12-78); ANION GAP 8 MEQ/L (8-16); AST/SGOT 8 U/L (7-37); BILIRUBIN,TOTAL 0.4 MG/DL (0.2-1.0); BLOOD UREA NITROGEN 21 MG/DL (7-18); C REACTIVE PROTEIN QUANTITATIV 0.47 MG/DL (0.00-0.30); CARBON DIOXIDE LEVEL 26 MEQ/L (21-32); CHLORIDE LEVEL 107 MEQ/L (98-107); CREATININE FOR GFR 0.97 MG/DL (0.55-1.30); GLOMERULAR FILTRATION RATE > 60.0 (>51); GLUCOSE, FASTING 80 MG/DL (70-100); IRON (FE) 100 UG/DL (50-170); PERCENT SATURATION 28.1 % (13.2-45.0); POTASSIUM SERUM 3.3 MEQ/L (3.5-5.1); RHEUMATOID FACTOR QUANT < 10.0 IU/ML (0-15.0); SODIUM LEVEL 141 MEQ/L (136-145); TOTAL IRON BINDING CAPACITY 356 UG/DL (250-450); TOTAL PROTEIN 7.4 GM/DL (6.4-8.2)
[2017-07-23 21:52] LABS: EOSINOPHILS 2 % (0-5); LYMPHOCYTES 46 % (16-52); MONOCYTES 5 % (0-8); NEUTROPHILS 47 % (35-75); PLATELET ESTIMATE NORMAL (NORMAL)
[2017-07-23 21:53] LABS: ERYTHROCYTE SEDIMENTATION RATE 9 mm/hr (0-30)
[2017-07-26 10:36] LABS: HEPATITIS B SURFACE ANTIGEN NEGATIVE (NEGATIVE)
[2017-07-26 11:04] LABS: HEPATITIS C VIRUS ABY INDEX < 0.0 INDEX (<0.8)
[2017-07-27 00:07] LABS: ANA (HEP2) Negative (.); Lyme Disease IgG/IgM Antibodie <0.91 ISR (0.00-0.90); Lyme Disease IgM Ab Quantitati <0.80 index (0.00-0.79); SSA SJOGRENS A <0.2 AI (0.0-0.9); SSB SJOGRENS B <0.2 AI (0.0-0.9)
[2017-07-27 00:07] LABS: CYCLIC CITRULLINATED PEPTIDE 6 units (0-19)
== END ==
LOC: M ADAMS 17:23
DX: M35.9 Systemic involvement of connective tissue, unspecified (principal); E83.110 Hereditary hemochromatosis; R53.83 Other fatigue; R23.3 Spontaneous ecchymoses; Z79.899 Other long term (current) drug therapy; J01.10 Acute frontal sinusitis, unspecified; F17.210 Nicotine dependence, cigarettes, uncomplicated; N18.3 Chronic kidney disease, stage 3 (moderate)
CPT/HCPCS: 83550

== ENCOUNTER → 2017-08-18 | Outpatient (REF) | payer MEDICARE, MEDICAID ==
[2017-08-18 20:40] LABS: ANION GAP 8 MEQ/L (8-16); BLOOD UREA NITROGEN 20 MG/DL (7-18); CALCIUM LEVEL 9.7 MG/DL (8.5-10.1); CARBON DIOXIDE LEVEL 27 MEQ/L (21-32); CHLORIDE LEVEL 108 MEQ/L (98-107); CREATININE FOR GFR 1.02 MG/DL (0.55-1.30); GLOMERULAR FILTRATION RATE > 60.0 (>51); GLUCOSE, FASTING 94 MG/DL (70-100); POTASSIUM SERUM 3.8 MEQ/L (3.5-5.1); SODIUM LEVEL 143 MEQ/L (136-145)
== END ==
LOC: M SFHCADAM 16:40
DX: E87.6 Hypokalemia (principal)
CPT/HCPCS: 80048

== ENCOUNTER 2017-09-24 15:22 | Emergency (ER) | payer MEDICARE, MEDICAID | END 2017-09-24 17:57 | disposition left against medical advice (07) | LOC: M ED 15:22 | DX: M54.9 Dorsalgia, unspecified (principal); Z53.21 Procedure and treatment not carried out due to patient leaving prior to being seen by health care provider ==

== ENCOUNTER → 2017-11-11 | Outpatient (CLI) | payer MEDICARE, MEDICAID | LOC: M RAD 18:12 | DX: M51.24 Other intervertebral disc displacement, thoracic region (principal); M54.14 Radiculopathy, thoracic region | CPT/HCPCS: 72146 ==

== ENCOUNTER → 2017-11-26 | Outpatient (REF) | payer MEDICARE, MEDICAID ==
[2017-11-26 20:26] LABS: BASO # 0.1 10^3/uL (0.0-0.2); BASO % 0.5 % (0.0-1.0); EOS # 0.3 10^3/uL (0.0-0.50); HEMATOCRIT 43.4 % (36.0-47.0); HEMOGLOBIN 14.9 g/dl (12.0-15.5); IMMATURE GRANULOCYTE % 0.2 % (0-3.0); LYMPH # 4.1 10^3/uL (1.5-4.5); MEAN CORPUSCULAR HEMOGLOBIN 29.9 pg (27.0-33.0); MEAN CORPUSCULAR HGB CONC 34.3 g/dl (32.0-36.5); MEAN CORPUSCULAR VOLUME 87.1 fl (80.0-96.0); MONO # 0.8 10^3/uL (0.0-0.8); MONO % 6.8 % (0.0-5.0); NEUTROPHILS # 5.8 10^3/uL (1.8-7.7); NEUTROPHILS % 52.5 % (36.0-66.0); PLATELET COUNT, AUTOMATED 306 10^3/uL (150-450); RED BLOOD COUNT 4.98 10^6/uL (4.00-5.40); RED CELL DISTRIBUTION WIDTH 13.9 % (11.5-14.5)
[2017-11-26 20:40] LABS: ALBUMIN 4.1 GM/DL (3.2-5.2); ALBUMIN/GLOBULIN RATIO 1.28 (1.00-1.93); ALKALINE PHOSPHATASE 85 U/L (45-117); ALT/SGPT 44 U/L (12-78); ANION GAP 9 MEQ/L (8-16); AST/SGOT 13 U/L (7-37); BILIRUBIN,TOTAL 0.7 MG/DL (0.2-1.0); BLOOD UREA NITROGEN 12 MG/DL (7-18); CALCIUM LEVEL 9.3 MG/DL (8.5-10.1); CARBON DIOXIDE LEVEL 27 MEQ/L (21-32); CHLORIDE LEVEL 108 MEQ/L (98-107); CREATININE FOR GFR 1.12 MG/DL (0.55-1.30); GLOMERULAR FILTRATION RATE 54.4 (>51); GLUCOSE, FASTING 89 MG/DL (70-100); POTASSIUM SERUM 3.3 MEQ/L (3.5-5.1); SODIUM LEVEL 144 MEQ/L (136-145); TOTAL PROTEIN 7.3 GM/DL (6.4-8.2)
== END ==
LOC: M SFHCADAM 15:04
DX: R35.0 Frequency of micturition (principal); N10 Acute pyelonephritis
CPT/HCPCS: 80053

== ENCOUNTER 2018-06-06 20:10 | Emergency (ER) | payer MEDICARE, MEDICAID ==
[~2018-06-06] VITALS: Ht 157.5 cm; Wt 65.9 kg
[2018-06-06 20:10] VITALS: BP 177/91
[~2018-06-06 20:10] MED LIST changes: -BIOT300T PO; +BIOT300T3 PO; -DRIS50002 PO; +DRIS50003 PO; -GABA600T PO; +GABA600T4 PO; +TIZA4CAP PO; -TIZA4CAP3 PO; -ZOFR20TA PO; +ZOFR4TAB16 PO; -ZOFR8TAB PO; +ZOFR8TAB24 PO
[2018-06-06] MEDS ORDERED: IBUP-1114 PO ×2 (20:26)
[2018-06-06] MEDS ORDERED: TETRACAINE 0.5% OPHTH SOLN 4ML OD ONE (21:30)
[2018-06-06] MEDS ORDERED: FLUORESCEIN OPHTH 1 MG STRIP OD ONE (21:30)
[2018-06-06] MEDS ORDERED: CIPR0.3S OD (21:49)
[2018-06-06] MEDS ORDERED: CIPROFLOXACIN 0.3% OPHTH SOLN 2.5ML OD ONE (22:00)
== END 2018-06-06 22:21 | disposition home or self-care (01) ==
LOC: M ED 20:10
DX: S05.01XA Injury of conjunctiva and corneal abrasion without foreign body, right eye, initial encounter (principal); X58.XXXA Exposure to other specified factors, initial encounter; Y92.9 Unspecified place or not applicable; Y93.9 Activity, unspecified; Y99.9 Unspecified external cause status; G43.909 Migraine, unspecified, not intractable, without status migrainosus; N28.9 Disorder of kidney and ureter, unspecified; Z85.42 Personal history of malignant neoplasm of other parts of uterus; Z72.0 Tobacco use; Z79.899 Other long term (current) drug therapy; Z88.1 Allergy status to other antibiotic agents; Z88.6 Allergy status to analgesic agent; Z88.8 Allergy status to other drugs, medicaments and biological substances; Z88.5 Allergy status to narcotic agent; Z91.041 Radiographic dye allergy status; Z91.013 Allergy to seafood; Z91.040 Latex allergy status; Z91.018 Allergy to other foods

== ENCOUNTER → 2018-07-08 | Outpatient (REF) | payer MEDICARE, MEDICAID ==
[~2018-07-08] MED LIST changes: +CIPR0.3S OD; +IBUP-1114 PO
[2018-07-08 22:21] LABS: INFLUENZA A AMPLIFICATION NEGATIVE (NEGATIVE); INFLUENZA B AMPLIFICATION NEGATIVE (NEGATIVE)
== END ==
LOC: M LAB REF 11:43
PROVIDERS: ATTEND Physician Assistant
DX: J11.1 Influenza due to unidentified influenza virus with other respiratory manifestations (principal)

== ENCOUNTER 2018-08-19 16:16 | Emergency (ER) | payer MEDICARE, MEDICAID ==
[~2018-08-19] VITALS: Ht 157.5 cm; Wt 59.1 kg
[~2018-08-19 16:16] MED LIST changes: -/FENT50PA TD; +FENT12DI12 TD; -FENT12PA TD; +FENT1DIS15 TD
[2018-08-19] MEDS ORDERED: TRAM50TA2 PO (16:32)
[2018-08-19] MEDS ORDERED: IBUP-1022 PO (16:32)
[2018-08-19] MEDS ORDERED: diazePAM 5 MG TAB PO ONE (18:00)
[2018-08-19] MEDS ORDERED: methylPREDNISolone INJ 125 MG/2 ML VIAL (J2930) IM ONE (18:00)
--- NOTE | 2018-08-19 19:51 | REP ---
CT lumbar spine without contrast: History: Fall on the tail bone. Worsening low back pain. Decreased sensation on the left. Comparison lumbar spine radiographs July 23, 2017. Comparison CT images July. CT findings: Preliminary digital pharmacy operations specialist radiographs show no abnormality. There is an obliquely coronal plane fracture in the distal sacrum involving the fourth sacral segment. This does not show significant displacement. It is best seen on sagittal reformatted scans. There is only minimal associated soft-tissue swelling. No lumbar vertebral fracture is seen. Pedicles and posterior elements appear intact. No upper sacral fracture is seen. No transverse process fracture is observed. There are degenerative disc changes at L5-S1 with reactive sclerosis on either side of the narrowed disc space. Posterior osteophytic ridging and diffuse disc bulging is seen at L5-S1. There is no evidence of spondylolysis or spondylolisthesis. Vascular calcification is seen in a normal caliber aorta. Bilateral intrarenal nephrolithiasis is noted incidentally. There is there are some calcifications in the spleen unchanged from July 2016. Impression: Essentially nondisplaced fracture through the fourth sacral segment with minimal associated swelling. No lumbar fracture is seen. Bilateral intrarenal nephrolithiasis. No hydronephrosis seen. Electronically Signed by Alexander Haddad MD 08/19/2018 07:42 P
[2018-08-19] MEDS ORDERED: PRED20TA PO (19:54)
[2018-08-19] MEDS ORDERED: VALI5TAB PO (19:54)
[2018-08-19 20:08] VITALS: BP 129/59
== END 2018-08-19 20:13 | disposition home or self-care (01) ==
LOC: M ED 16:16
DX: S32.10XA Unspecified fracture of sacrum, initial encounter for closed fracture (principal); W18.39XA Other fall on same level, initial encounter; Y92.89 Other specified places as the place of occurrence of the external cause; J45.909 Unspecified asthma, uncomplicated; M79.7 Fibromyalgia; F33.9 Major depressive disorder, recurrent, unspecified; F41.9 Anxiety disorder, unspecified; F43.10 Post-traumatic stress disorder, unspecified; Z88.1 Allergy status to other antibiotic agents; Z88.2 Allergy status to sulfonamides; Z88.5 Allergy status to narcotic agent; Z88.8 Allergy status to other drugs, medicaments and biological substances; Z91.013 Allergy to seafood; Z91.018 Allergy to other foods; Z91.040 Latex allergy status; F17.210 Nicotine dependence, cigarettes, uncomplicated
CPT/HCPCS: 72131; 96372; 99283; J2930

== ENCOUNTER → 2018-08-24 | Outpatient (REF) | payer MEDICARE, MEDICAID ==
[~2018-08-24] MED LIST changes: +IBUP-1022 PO; +PRED20TA PO; +VALI5TAB PO
[2018-08-24 12:33] LABS: HEMATOCRIT 44.5 % (36.0-47.0); HEMOGLOBIN 15.1 g/dl (12.0-15.5); MEAN CORPUSCULAR HEMOGLOBIN 29.4 pg (27.0-33.0); MEAN CORPUSCULAR HGB CONC 33.9 g/dl (32.0-36.5); MEAN CORPUSCULAR VOLUME 86.7 fl (80.0-96.0); PLATELET COUNT, AUTOMATED 275 10^3/uL (150-450); RED BLOOD COUNT 5.13 10^6/uL (4.00-5.40); WHITE BLOOD COUNT 16.5 10^3/uL (4.0-10.0)
[2018-08-24 12:51] LABS: ALT/SGPT 84 U/L (12-78); BILIRUBIN,TOTAL 0.4 MG/DL (0.2-1.0); BLOOD UREA NITROGEN 18 MG/DL (7-18); CALCIUM LEVEL 9.3 MG/DL (8.5-10.1); CARBON DIOXIDE LEVEL 24 MEQ/L (21-32); CHLORIDE LEVEL 111 MEQ/L (98-107); CHOLESTEROL LEVEL 167 MG/DL (<200); CHOLESTEROL RISK RATIO 4.513 (<5); CREATININE FOR GFR 0.89 MG/DL (0.55-1.30); FREE T4 0.95 NG/DL (0.76-1.46); GLOMERULAR FILTRATION RATE > 60.0 (>51); GLUCOSE, FASTING 92 MG/DL (70-100); HDL CHOLESTEROL 37 MG/DL (>40); LDL CHOLESTEROL 102 MG/DL (<100); MAGNESIUM LEVEL 1.9 MG/DL (1.8-2.4); NON-HDL-C 130 MG/DL; POTASSIUM SERUM 4.1 MEQ/L (3.5-5.1); SODIUM LEVEL 141 MEQ/L (136-145); THYROID STIMULATING HORMONE 0.315 uIU/ML (0.358-3.740); TRIGLYCERIDES LEVEL 140 MG/DL (<150)
== END ==
LOC: M SFHCADAM 10:03
PROVIDERS: ATTEND Physician Assistant
DX: E03.9 Hypothyroidism, unspecified (principal); I10 Essential (primary) hypertension; E78.5 Hyperlipidemia, unspecified
CPT/HCPCS: 80053; 80061; 83735; 84439; 84443; 85027; G0463

== ENCOUNTER → 2018-09-16 | Outpatient (REF) | payer MEDICARE, MEDICAID ==
[2018-09-16 19:02] LABS: APPEARANCE, URINE CLEAR (CLEAR); BACTERIA, URINE AUTO NEGATIVE (NEGATIVE); BILIRUBIN, URINE AUTO NEGATIVE (NEGATIVE); BLOOD, URINE BLOOD NEGATIVE (NEGATIVE); COLOR, URINE YELLOW (YELLOW); GLUCOSE, URINE (UA) AUTO NEGATIVE (NEGATIVE); KETONE, URINE AUTO NEGATIVE (NEGATIVE); LEUKOCYTE ESTERASE, URINE AUTO 1+ (NEGATIVE); NITRITE, URINE AUTO NEGATIVE (NEGATIVE); PROTEIN, URINE AUTO NEGATIVE (NEGATIVE); RBC, URINE AUTO 2 /HPF (0-3); SQUAMOUS EPITHELIAL CELL UR AU 0 /HPF (0-6); UROBILINOGEN, URINE AUTO 0.2 mg/dL (0.0-2.0); WBC, URINE AUTO 5 /HPF (0-3)
== END ==
LOC: M LAB REF 16:47
PROVIDERS: ATTEND Obstetrics & Gynecology
DX: R39.89 Other symptoms and signs involving the genitourinary system (principal)

== ENCOUNTER 2018-10-27 14:06 | Day surgery (SDC) | payer MEDICARE, MEDICAID ==
[~2018-10-27] VITALS: Ht 157.5 cm; Wt 73.4 kg
[~2018-10-27 14:06] MED LIST changes: -BIOT300T3 PO; +BIOT300T8 PO; +LR 1,000 ML IV ONE; +OMEP20CA3 PO; +TIZA2TAB4 PO
[2018-10-27] MEDS ORDERED: ACETAMINOPHEN 325 MG TAB As Ordered ONE (15:00)
[2018-10-27] MEDS ORDERED: ACETAMINOPHEN TAB 650MG DOSE (2X325MG) PO ONE (15:15)
--- NOTE | 2018-10-27 17:20 | ECGEPIP ---
[facility] Test Date: 2018-10-27 Pat Name: ARIEL DARDEN Department: Room: - Gender: Female Vfx Artist: RUPESH : 1965 Requested By: Corona Goddard Order Number: [id number] Reading MD: Camacho Rodríguez Measurements Intervals Wiggins Rate: 78 P: 36 MT: 147 QRS: QRSD: 90 T: 20 QT: 377 QTc: 430 Interpretive Statements Normal sinus rhythm Early anterior R wave progression Nonspecific ST-T wave abnormalities Comparison tracing not on file Electronically Signed on 10-27-2018 17:19:45 EDT by Camacho Rodríguez
[2018-10-27] MEDS ORDERED: MIDAZOLAM INJ 2 MG/2 ML VIAL (J2250) As Ordered ONE (17:33)
[2018-10-27] MEDS ORDERED: PROPOFOL 200 MG/20 ML VIAL As Ordered ONE (17:33)
[2018-10-27] MEDS ORDERED: fentaNYL 100 MCG/2 ML INJECTION (J3010) As Ordered ONE (17:33)
[2018-10-27] MEDS ORDERED: LIDOCAINE 2% INJ 100 MG/5 ML SDV (FOR ANES.) As Ordered ONE (17:33)
[2018-10-27] MEDS ORDERED: BUPIVACAINE HCL 0.5% 10 ML VIAL As Ordered ONE (18:46)
[2018-10-27 19:40] VITALS: BP 156/82
--- NOTE | 2018-10-29 14:21 | RO ---
DATE OF PROCEDURE: 10/27/2018 PREOPERATIVE DIAGNOSIS: Painful periclitoral lesion, failed office treatments. POSTOPERATIVE DIAGNOSIS: Painful periclitoral lesion, failed office treatments. PROCEDURE: Excision full thickness approximately 6 x 5 mm lesion from the right clitoral leblanc. SURGEON: Dr. Patricia Nelson PERSONAL LINES AGENT: None. ANESTHESIA: Local and monitored anesthesia care (MAC). SPECIMEN: Periclitoral lesion, which is suspicious for condyloma, but the patient has a history of cervical cancer, and it did not respond to the office treatments, so it may be more and was, of course, sent to the pathologist. DESCRIPTION OF PROCEDURE: Suly was brought to the operating room where sufficient anesthesia was induced, and she was prepped, draped and positioned in the usual sterile fashion. We then gave some Marcaine, which we went ahead and then waited for that to set up and then with the Marcaine and the MAC, she was able to tolerate removal of this lesion from the right clitoral leblanc. Under anesthesia, we were able to lift the leblanc away from the clitoris and see that we did not have to inject the clitoris itself, fortunately, and there was enough redundancy of the tissue that we could get, after removal, full thickness removal of lesion, we could see that there was not any hypervascularity. We were able to get a full thickness closure without tension using #4-0 Monocryl. So, we used #4-0 Monocryl for the closure of the wound and a running stitch. We were able to get that without tension in this area, fortunately, and, of course, we had used the 0.25% Marcaine for a little prolonged relief from that discomfort. And the incision itself was probably closer to 1 centimeter because, of course, we had to have a little bit of tissue around it because of the patient's previous cervical cancer history. We wanted to make sure we did not miss anything. And so with the wound closed and good approximation and hemostasis confirmed, the procedure was then ended. Estimated blood loss for the procedure: About 1 mL. Fluid replacement: Crystalloid. Complications: None. Condition and Disposition: Suly tolerated the procedure well and was recovering in the recovery room in good condition.
== END 2018-10-27 19:45 | disposition home or self-care (01) ==
LOC: M SDC 14:06
PROVIDERS: ATTEND Obstetrics & Gynecology
DX: A63.0 Anogenital (venereal) warts (principal); K21.9 Gastro-esophageal reflux disease without esophagitis; K76.9 Liver disease, unspecified; Z92.21 Personal history of antineoplastic chemotherapy; M79.7 Fibromyalgia; F41.9 Anxiety disorder, unspecified; F32.9 Major depressive disorder, single episode, unspecified; Z91.013 Allergy to seafood; Z91.041 Radiographic dye allergy status; Z88.8 Allergy status to other drugs, medicaments and biological substances; Z91.040 Latex allergy status; Z79.899 Other long term (current) drug therapy
CPT/HCPCS: 11421; 88305; 93005; J2250; J3010

== ENCOUNTER → 2018-11-02 | Outpatient (CLI) | payer MEDICARE, MEDICAID ==
[~2018-11-02] MED LIST changes: -LR 1,000 ML IV ONE; -OMEP20CA3 PO; +OMEP20CA4 PO
--- NOTE | 2018-11-02 15:35 | REP ---
Clinical: Acute headache . Comparison: 09/27/2015 . Findings: The ventricles, sulci, and cisterns are normal in position and appearance. Jerome-white differentiation is maintained. No acute intracranial hemorrhage, mass/mass effect, pathology or trauma/injury. No evidence for acute infarction. No extra-axial fluid collection. Calvarium is intact. Paranasal sinuses and mastoid air cells are clear. Impression: Normal noncontrast head CT. No evidence for acute intracranial pathology or trauma/injury. Electronically Signed by Junior Branch MD 11/02/2018 03:25 P
== END ==
LOC: M RAD 14:54
PROVIDERS: ATTEND Family Medicine
DX: R51 Headache (principal)
CPT/HCPCS: 70450; G0463

== ENCOUNTER → 2018-11-18 | Outpatient (REF) | payer MEDICARE, MEDICAID ==
[2018-11-18 19:20] LABS: BASO # 0.1 10^3/uL (0.0-0.2); BASO % 0.8 % (0.0-1.0); EOS # 0.7 10^3/uL (0.0-0.50); EOS % 6.9 % (0.0-3.0); HEMATOCRIT 43.7 % (36.0-47.0); LYMPH # 3.8 10^3/uL (1.5-4.5); LYMPH % 37.8 % (24.0-44.0); MEAN CORPUSCULAR HEMOGLOBIN 30.1 pg (27.0-33.0); MEAN CORPUSCULAR HGB CONC 34.3 g/dl (32.0-36.5); MEAN CORPUSCULAR VOLUME 87.8 fl (80.0-96.0); MONO # 0.7 10^3/uL (0.0-0.8); MONO % 6.9 % (0.0-5.0); NEUTROPHILS # 4.8 10^3/uL (1.8-7.7); NEUTROPHILS % 47.4 % (36.0-66.0); PLATELET COUNT, AUTOMATED 253 10^3/uL (150-450); RED BLOOD COUNT 4.98 10^6/uL (4.00-5.40); WHITE BLOOD COUNT 10.1 10^3/uL (4.0-10.0)
[2018-11-18 19:39] LABS: ERYTHROCYTE SEDIMENTATION RATE 6 mm/hr (0-30)
[2018-11-18 20:11] LABS: ALT/SGPT 18 U/L (12-78); BILIRUBIN,TOTAL 0.4 MG/DL (0.2-1.0); BLOOD UREA NITROGEN 20 MG/DL (7-18); C REACTIVE PROTEIN QUANTITATIV 0.56 MG/DL (0.00-0.30); CALCIUM LEVEL 9.1 MG/DL (8.5-10.1); CARBON DIOXIDE LEVEL 27 MEQ/L (21-32); CHLORIDE LEVEL 111 MEQ/L (98-107); CREATININE FOR GFR 0.89 MG/DL (0.55-1.30); GLOMERULAR FILTRATION RATE > 60.0 (>51); GLUCOSE, FASTING 82 MG/DL (70-100); POTASSIUM SERUM 3.8 MEQ/L (3.5-5.1); SODIUM LEVEL 142 MEQ/L (136-145); TOTAL PROTEIN 6.9 GM/DL (6.4-8.2)
== END ==
LOC: M SFHCADAM 16:50
PROVIDERS: ATTEND Physician Assistant
DX: S32.10XG Unspecified fracture of sacrum, subsequent encounter for fracture with delayed healing (principal); R22.2 Localized swelling, mass and lump, trunk
CPT/HCPCS: 80053; 85025; 85652; 86140; G0463

== ENCOUNTER → 2019-02-08 | Outpatient (REF) | payer MEDICARE, MEDICAID ==
[~2019-02-08] MED LIST changes: -OMEP40CA2 PO; +OMEP40CA97 PO
[2019-02-08 19:37] LABS: HEMATOCRIT 45.9 % (36.0-47.0); HEMOGLOBIN 15.2 g/dl (12.0-15.5); MEAN CORPUSCULAR HEMOGLOBIN 28.8 pg (27.0-33.0); MEAN CORPUSCULAR HGB CONC 33.1 g/dl (32.0-36.5); MEAN CORPUSCULAR VOLUME 87.1 fl (80.0-96.0); PLATELET COUNT, AUTOMATED 248 10^3/uL (150-450); RED BLOOD COUNT 5.27 10^6/uL (4.00-5.40); WHITE BLOOD COUNT 9.3 10^3/uL (4.0-10.0)
[2019-02-08 20:11] LABS: ALBUMIN 4.1 GM/DL (3.2-5.2); ALT/SGPT 17 U/L (12-78); BILIRUBIN,TOTAL 0.7 MG/DL (0.2-1.0); BLOOD UREA NITROGEN 14 MG/DL (7-18); CALCIUM LEVEL 9.3 MG/DL (8.5-10.1); CARBON DIOXIDE LEVEL 26 MEQ/L (21-32); CHLORIDE LEVEL 109 MEQ/L (98-107); CREATININE FOR GFR 0.84 MG/DL (0.55-1.30); FOLATE 17.9 NG/ML; FREE T4 1.02 NG/DL (0.76-1.46); GLOMERULAR FILTRATION RATE > 60.0 (>51); GLUCOSE, FASTING 63 MG/DL (70-100); POTASSIUM SERUM 3.8 MEQ/L (3.5-5.1); SODIUM LEVEL 143 MEQ/L (136-145); THYROID STIMULATING HORMONE 0.958 uIU/ML (0.358-3.740); TOTAL 25(OH) VITAMIN D 34.1 NG/ML (30.0-100.0); TOTAL PROTEIN 6.9 GM/DL (6.4-8.2); VITAMIN B12 LEVEL 364 PG/ML
== END ==
LOC: M SFHCADAM 14:29
PROVIDERS: ATTEND Physician Assistant
DX: R53.82 Chronic fatigue, unspecified (principal); R63.4 Abnormal weight loss
CPT/HCPCS: 80053; 82306; 82607; 82746; 84439; 84443; 85027; 90732; G0009; G0463

== ENCOUNTER → 2019-03-01 | Outpatient (REF) | payer MEDICARE, MEDICAID ==
[2019-03-01 20:41] LABS: C REACTIVE PROTEIN QUANTITATIV < 0.30 MG/DL (0.00-0.30); RHEUMATOID FACTOR QUANT < 10.0 IU/ML (<15.0)
[2019-03-04 00:07] LABS: ANTINUCLEAR ANTIBODIES DIRECT Negative (Negative); CYCLIC CITRULLINATED PEPTIDE 7 units (0-19)
== END ==
LOC: M LABDRWAD 19:19
PROVIDERS: ATTEND Pain Medicine Interventional Pain Medicine
DX: M35.9 Systemic involvement of connective tissue, unspecified (principal)

== ENCOUNTER → 2019-03-14 | Outpatient (CLI) | payer MEDICARE, MEDICAID ==
--- NOTE | 2019-03-14 16:41 | REP ---
PA and lateral chest: Comparison is 09/29/2011. The lung nelson are clear. The cardiac size is normal. The adam, mediastinum, and skeletal structures are unremarkable. Impression: Negative PA and lateral chest. There is no interval change. Electronically Signed by Bhnau Bradford MD 03/14/2019 04:32 P
== END ==
LOC: M ADAMS 13:04
PROVIDERS: ATTEND Physician Assistant Medical
DX: J20.9 Acute bronchitis, unspecified (principal)

== ENCOUNTER → 2019-03-14 | Outpatient (CLI) | payer MEDICARE, MEDICAID ==
[2019-03-14 17:02] LABS: BASO # 0.1 10^3/uL (0.0-0.2); BASO % 0.5 % (0.0-1.0); EOS # 0.6 10^3/uL (0.0-0.5); HEMATOCRIT 42.4 % (36.0-47.0); HEMOGLOBIN 14.4 g/dl (12.0-15.5); LYMPH # 3.8 10^3/uL (1.5-5.0); MEAN CORPUSCULAR HEMOGLOBIN 29.4 pg (27.0-33.0); MEAN CORPUSCULAR VOLUME 86.7 fl (80.0-96.0); MONO # 0.9 10^3/uL (0.0-0.8); MONO % 8.6 % (0.0-5.0); NEUTROPHILS # 5.6 10^3/uL (1.5-8.5); NEUTROPHILS % 50.6 % (36.0-66.0); PLATELET COUNT, AUTOMATED 240 10^3/uL (150-450); RED BLOOD COUNT 4.89 10^6/uL (4.00-5.40)
== END ==
LOC: M LABDRWAD 13:11
PROVIDERS: ATTEND Physician Assistant Medical
DX: J20.9 Acute bronchitis, unspecified (principal)

== ENCOUNTER → 2019-06-13 | Outpatient (REF) | payer MEDICARE, MEDICAID ==
[~2019-06-13] MED LIST changes: +OMEP1CAP73 PO; -OMEP20CA4 PO
[2019-06-13 13:44] LABS: APPEARANCE, URINE CLEAR (CLEAR); BACTERIA, URINE AUTO 1+ (NEGATIVE); BILIRUBIN, URINE AUTO NEGATIVE (NEGATIVE); BLOOD, URINE BLOOD NEGATIVE (NEGATIVE); COLOR, URINE AMBER (YELLOW); GLUCOSE, URINE (UA) AUTO NEGATIVE (NEGATIVE); KETONE, URINE AUTO NEGATIVE (NEGATIVE); LEUKOCYTE ESTERASE, URINE AUTO TRACE (NEGATIVE); MUCUS, URINE SMALL (NEGATIVE); NITRITE, URINE AUTO POSITIVE (NEGATIVE); PROTEIN, URINE AUTO NEGATIVE (NEGATIVE); RBC, URINE AUTO 11 /HPF (0-3); SPECIFIC GRAVITY URINE AUTO 1.014 (1.002-1.035); SQUAMOUS EPITHELIAL CELL UR AU 0 /HPF (0-6); WBC, URINE AUTO 17 /HPF (0-3)
== END ==
LOC: M SFHCADAM 12:42
PROVIDERS: ATTEND Physician Assistant
DX: R30.0 Dysuria (principal)

== ENCOUNTER → 2019-06-13 | Outpatient (REF) | payer MEDICARE, MEDICAID ==
[~2019-06-13] MED LIST changes: -MONT10TA2 PO; +MONT10TA4 PO
[2019-06-13 14:48] LABS: BASO # 0.1 10^3/uL (0.0-0.2); BASO % 0.6 % (0.0-1.0); EOS # 0.5 10^3/uL (0.0-0.5); EOS % 4.8 % (0.0-3.0); HEMATOCRIT 45.4 % (36.0-47.0); HEMOGLOBIN 14.9 g/dl (12.0-15.5); LYMPH # 2.8 10^3/uL (1.5-5.0); LYMPH % 28.2 % (24.0-44.0); MEAN CORPUSCULAR HEMOGLOBIN 28.9 pg (27.0-33.0); MEAN CORPUSCULAR HGB CONC 32.8 g/dl (32.0-36.5); MONO # 0.6 10^3/uL (0.0-0.8); MONO % 6.3 % (0.0-5.0); NEUTROPHILS # 5.9 10^3/uL (1.5-8.5); NEUTROPHILS % 59.8 % (36.0-66.0); PLATELET COUNT, AUTOMATED 227 10^3/uL (150-450); RED BLOOD COUNT 5.16 10^6/uL (4.00-5.40); WHITE BLOOD COUNT 9.9 10^3/uL (4.0-10.0)
[2019-06-13 14:54] LABS: ALBUMIN 3.9 GM/DL (3.2-5.2); ALT/SGPT 17 U/L (12-78); BILIRUBIN,TOTAL 0.5 MG/DL (0.2-1.0); BLOOD UREA NITROGEN 17 MG/DL (7-18); CALCIUM LEVEL 9.4 MG/DL (8.5-10.1); CARBON DIOXIDE LEVEL 30 MEQ/L (21-32); CHLORIDE LEVEL 111 MEQ/L (98-107); CREATININE FOR GFR 0.89 MG/DL (0.55-1.30); GLOMERULAR FILTRATION RATE > 60.0 (>51); GLUCOSE, FASTING 89 MG/DL (70-100); POTASSIUM SERUM 3.6 MEQ/L (3.5-5.1); SODIUM LEVEL 144 MEQ/L (136-145); TOTAL PROTEIN 6.7 GM/DL (6.4-8.2)
== END ==
LOC: M SFHCADAM 11:11
PROVIDERS: ATTEND Physician Assistant
DX: R30.0 Dysuria (principal); N30.01 Acute cystitis with hematuria
CPT/HCPCS: 80053; 81002; 85025; G0463

== ENCOUNTER → 2019-12-09 | Outpatient (REF) | payer MEDICARE, MEDICAID ==
[~2019-12-09] MED LIST changes: -CIPR0.3S OD; +CIPR0.3S6 OD; +FLON1SPR; +IBUP1TAB7 PO; +NEUR100C PO; +OXYB5TAB10 PO; +PERC5TAB12 PO; +PROBCAP14 PO; -TIZA2TAB4 PO; +TIZA2TAB6 PO; +[UNRECOGNIZED DRUG - OTHER] PO
== END ==
LOC: M LAB REF 06:37
PROVIDERS: ATTEND Physician Assistant
DX: N39.0 Urinary tract infection, site not specified (principal)

== ENCOUNTER → 2019-12-11 | Outpatient (REF) | payer MEDICARE, MEDICAID | LOC: M LAB REF 13:53 | PROVIDERS: ATTEND Physician Assistant | DX: M54.9 Dorsalgia, unspecified (principal); R31.9 Hematuria, unspecified ==

== ENCOUNTER → 2019-12-28 | Outpatient (REF) | payer MEDICARE, MEDICAID ==
[2019-12-28 14:58] LABS: HEMATOCRIT 41.2 % (36.0-47.0); HEMOGLOBIN 13.7 g/dl (12.0-15.5); MEAN CORPUSCULAR HEMOGLOBIN 29.5 pg (27.0-33.0); MEAN CORPUSCULAR HGB CONC 33.3 g/dl (32.0-36.5); MEAN CORPUSCULAR VOLUME 88.8 fl (80.0-96.0); PLATELET COUNT, AUTOMATED 227 10^3/uL (150-450); RED BLOOD COUNT 4.64 10^6/uL (4.00-5.40); WHITE BLOOD COUNT 8.2 10^3/uL (4.0-10.0)
[2019-12-28 15:59] LABS: ALBUMIN 3.9 GM/DL (3.2-5.2); ALT/SGPT 17 U/L (12-78); BILIRUBIN,TOTAL 0.6 MG/DL (0.2-1.0); BLOOD UREA NITROGEN 14 MG/DL (7-18); CALCIUM LEVEL 9.4 MG/DL (8.5-10.1); CARBON DIOXIDE LEVEL 27 MEQ/L (21-32); CHLORIDE LEVEL 112 MEQ/L (98-107); CREATININE FOR GFR 0.86 MG/DL (0.55-1.30); GLOMERULAR FILTRATION RATE > 60.0 (>51); GLUCOSE, FASTING 99 MG/DL (70-100); POTASSIUM SERUM 3.9 MEQ/L (3.5-5.1); SODIUM LEVEL 143 MEQ/L (136-145); TOTAL PROTEIN 6.8 GM/DL (6.4-8.2)
== END ==
LOC: M LABDRWAD 10:38
PROVIDERS: ATTEND Physician Assistant
DX: R31.9 Hematuria, unspecified (principal); N20.0 Calculus of kidney; N13.30 Unspecified hydronephrosis
CPT/HCPCS: 36415; 80053; 85027; G0463

== ENCOUNTER → 2020-01-27 | Outpatient (CLI) | payer MEDICARE, MEDICAID ==
[2020-01-27 10:46] LABS: HEMATOCRIT 44.6 % (36.0-47.0); HEMOGLOBIN 14.8 g/dl (12.0-15.5); MEAN CORPUSCULAR HEMOGLOBIN 29.3 pg (27.0-33.0); MEAN CORPUSCULAR HGB CONC 33.2 g/dl (32.0-36.5); MEAN CORPUSCULAR VOLUME 88.3 fl (80.0-96.0); PLATELET COUNT, AUTOMATED 226 10^3/uL (150-450); RED BLOOD COUNT 5.05 10^6/uL (4.00-5.40); WHITE BLOOD COUNT 8.9 10^3/uL (4.0-10.0)
[2020-01-27 10:53] LABS: AMORPHOUS SEDIMENT SMALL (NEGATIVE); APPEARANCE, URINE CLEAR (CLEAR); BACTERIA, URINE AUTO NEGATIVE (NEGATIVE); BILIRUBIN, URINE AUTO NEGATIVE (NEGATIVE); BLOOD, URINE BLOOD NEGATIVE (NEGATIVE); COLOR, URINE YELLOW (YELLOW); GLUCOSE, URINE (UA) AUTO NEGATIVE (NEGATIVE); KETONE, URINE AUTO NEGATIVE (NEGATIVE); LEUKOCYTE ESTERASE, URINE AUTO TRACE (NEGATIVE); MUCUS, URINE SMALL (NEGATIVE); NITRITE, URINE AUTO NEGATIVE (NEGATIVE); PROTEIN, URINE AUTO NEGATIVE (NEGATIVE); RBC, URINE AUTO 8 /HPF (0-3); SPECIFIC GRAVITY URINE AUTO 1.013 (1.002-1.035); SQUAMOUS EPITHELIAL CELL UR AU 0 /HPF (0-6); UROBILINOGEN, URINE AUTO 0.2 mg/dL (0.0-2.0); WBC, URINE AUTO 4 /HPF (0-3)
[2020-01-27 11:10] LABS: BLOOD UREA NITROGEN 20 MG/DL (7-18); CALCIUM LEVEL 9.1 MG/DL (8.5-10.1); CARBON DIOXIDE LEVEL 28 MEQ/L (21-32); CHLORIDE LEVEL 111 MEQ/L (98-107); CREATININE FOR GFR 0.87 MG/DL (0.55-1.30); GLOMERULAR FILTRATION RATE > 60.0 (>51); GLUCOSE, FASTING 103 MG/DL (70-100); POTASSIUM SERUM 3.7 MEQ/L (3.5-5.1); SODIUM LEVEL 143 MEQ/L (136-145)
--- NOTE | 2020-01-27 16:53 | ECGEPIP ---
[facility] Test Date: 2020-01-27 Pat Name: ARIEL DARDEN Department: Room: - Gender: Female Shop Superintendent: RUPESH : 1965 Requested By: Brooklynn CHINO Order Number: [id number] Reading MD: Lam Bright Measurements Intervals [place] Rate: 68 P: 51 TN: 135 QRS: 14 QRSD: 95 T: 35 QT: 400 QTc: 428 Interpretive Statements SINUS RHYTHM Early anterior R wave progression- similar to tracing done 10-27-18 Electronically Signed on 01-27-2020 16:52:50 EDT by Lam Bright
--- NOTE | 2020-02-08 16:12 | REP ---
CHEST X-RAY: 2-VIEWS HISTORY: Preoperative. Renal surgery. COMPARISON: Chest x-ray 03/14/2019. FINDINGS: The lungs are symmetrically aerated and free of infiltrate. The pleural angles are sharp. Heart size is normal. Pulmonary vasculature is not increased. No significant bony abnormality is seen. IMPRESSION: No active disease. MTDD
== END ==
LOC: M LAB 09:54
PROVIDERS: ATTEND Nurse Practitioner Women's Health
DX: Z01.812 Encounter for preprocedural laboratory examination (principal); Z11.59 Encounter for screening for other viral diseases; N13.1 Hydronephrosis with ureteral stricture, not elsewhere classified; Z20.828 Contact with and (suspected) exposure to other viral communicable diseases
CPT/HCPCS: 36415; 71046; 80048; 81001; 85027; 87086; 93005; C9803; U0003

== ENCOUNTER → 2020-01-27 | Outpatient (CLI) | payer MEDICARE, MEDICAID | LOC: M LABSMTC 09:27 | PROVIDERS: ATTEND Anesthesiology | DX: Z01.818 Encounter for other preprocedural examination (principal); Z11.59 Encounter for screening for other viral diseases ==

== ENCOUNTER 2020-02-01 09:24 | Day surgery (SDC) | payer MEDICARE, MEDICAID ==
[~2020-02-01] VITALS: Ht 152.4 cm; Wt 69.4 kg
[~2020-02-01 09:24] MED LIST changes: +CONRAY-60 60% 50ML VIAL (Q9961) As Ordered ONE; +LIDOCAINE 2% 100MG/5ML SDV (FOR ANES.) As Ordered ONE; +LR 1,000 ML IV ONE; +MIDAZOLAM INJ 2MG/2ML VIAL (J2250 PER 1MG) As Ordered ONE; +ONDANSETRON 4MG/2ML VIAL As Ordered ONE; -OXYB5TAB10 PO; -PERC5TAB12 PO; +ceFAZolin SOD 2 GM in IV 1 EA IV ONE; +dexameTHASONE 4 MG/ML 1ML VIAL (J1100 PER 1MG) As Ordered ONE; +fentaNYL 100 MCG/2 ML INJECTION (J3010) As Ordered ONE; +propofoL 200 MG/20 ML VIAL As Ordered ONE
[2020-02-01 09:58] LABS: INR 0.92; PROTHROMBIN TIME 12.5 SECONDS (12.5-14.3)
[2020-02-01] MEDS ORDERED: CONRAY-60 60% 50ML VIAL (Q9961) As Ordered ONE (10:12)
[2020-02-01] MEDS ORDERED: OXYB5TAB10 PO (10:27)
[2020-02-01] MEDS ORDERED: PERC5TAB12 PO (10:27)
[2020-02-01] MEDS ORDERED: HYDROMORPHONE HCL 0.5 MG/ 0.5 ML SYRINGE (J1170 PER 1) As Ordered ONE (11:53)
[2020-02-01] MEDS: fentaNYL 100 MCG/2 ML INJECTION (J3010) IV PRN ×2 (11:58→12:06)
[2020-02-01] MEDS: HYDROMORPHONE HCL 0.5 MG/ 0.5 ML SYRINGE (J1170 PER 1) IV PRN ×2 (11:58→12:06)
[2020-02-01] MEDS ORDERED: ONDANSETRON 4MG/2ML VIAL As Ordered ONE (12:13)
[2020-02-01] MEDS ORDERED: fentaNYL 100 MCG/2 ML INJECTION (J3010) As Ordered ONE (12:18)
[2020-02-01] MEDS ORDERED: PERCOCET 5MG/325MG TAB PO PRN (12:30)
[2020-02-01] MEDS ORDERED: oxyBUTYnin 5 MG TAB PO PRN (12:30)
[2020-02-01] MEDS ORDERED: LR 1,000 ML IV SCH (12:30)
[2020-02-01] MEDS ORDERED: ONDANSETRON 4MG/2ML VIAL IV PRN (12:30)
[2020-02-01] MEDS ORDERED: METOCLOPRAMIDE INJ 10MG/2ML VIAL (J2765 PER 1) As Ordered ONE (14:41)
[2020-02-01] MEDS ORDERED: METOCLOPRAMIDE INJ 10MG/2ML VIAL (J2765 PER 1) IV PRN (14:45)
[2020-02-01] MEDS: oxyCODONE 5MG TAB PO PRN ×2 (14:50→16:34)
[2020-02-01] MEDS ORDERED: oxyCODONE 5MG TAB As Ordered ONE (16:28)
[2020-02-01] MEDS ORDERED: KETOROLAC 30 MG/ML 1ML VIAL IV ONE (17:30)
[2020-02-01] MEDS ORDERED: diphenhydrAMINE 50MG/ML VIAL (J1200) IV PRN (17:30)
[2020-02-01 17:45] VITALS: BP 175/81
--- NOTE | 2020-02-08 16:13 | REP ---
RETROGRADE PYELOGRAM: SINGLE VIEW HISTORY: Stent placement. 14 seconds of fluoroscopy time is reported. FINDINGS: A single cmld-ovchg-saky fluoroscopically obtained spot radiograph of the abdomen documents bilateral double pigtailed ureteral stents in place. MTDD
--- NOTE | 2020-02-09 12:42 | RO ---
DATE OF OPERATION: 02/01/2020. PREOPERATIVE DIAGNOSIS: Kidney stones. POSTOPERATIVE DIAGNOSIS: Kidney stones. PROCEDURE: * Cystoscopy. * Bilateral ureteroscopy with basket extraction of stones. * Bilateral ureteral stent placement. SURGEON: Avni Cuellar MD. TOUR COUNSELOR: None. ANESTHESIA: General. OPERATIVE INDICATIONS: This is an 54-year-old female who was found to have bilateral kidney stones as well as left ureteral stones on recent CAT scan. She was brought to the operating room to have treatment. DESCRIPTION OF PROCEDURE: The patient was brought to the operating room and general anesthesia was induced. Prophylactic antibiotics were infused. She was then placed in the dorsal lithotomy position, prepped and draped in the usual sterile fashion. A rigid cystoscope was inserted into the urethral meatus and advanced into the bladder. A guidewire was advanced up the left collecting system. I then went up the left collecting system with a short semi-rigid ureteroscope and no stones were seen in the distal ureter. I examined the mid and proximal ureter as well and no stones were seen, indicating the left ureteral stones had passed. At this point, a ureteral access sheath was advanced up the left collecting system. I then went up the access sheath with the flexible ureteroscope and examined the left kidney thoroughly. Of note; the kidney did appear to be hydronephrotic indicating she had likely recently passed stones. She, of note had nephrocalcinosis with small kidney stones embedded in several renal papillae. I removed the larger of these stones using the basket. No free floating stones were seen inside the left kidney. At this point, the ureteroscope was removed along with the access sheath. A guidewire was then utilized to advance a 6-Gabonese x 22-32 cm JJ ureteral stent into the left collecting system. The wire was removed and there were adequate curls of the stent in the left renal pelvis and in the bladder. At this point, I advanced the guidewire up the right collecting system. I then advanced the ureteral access sheath up the right collecting system. I went up the access sheath with the flexible ureteroscope and then examined the right kidney thoroughly. She also had nephrocalcinosis on the right side with several papillae containing calcifications. In the lower pole calyx, there was an approximately 5-6 mm stone embedded inside a papilla. The stones was removed using the basket. At this point, after confirming there were no additional stones inside the kidney other than the ones embedded, the ureteroscope was removed along with the access sheath. There are no stones seen inside the ureter. I then utilized the wire to advance a 6-Gabonese x 22-32 cm JJ ureteral stent into the right collecting system. The wire was removed and there were adequate curls of the stent in the right renal pelvis and in the bladder. The bladder was emptied of all fluids, and this marked conclusion of the procedure. The patient was taken out of the dorsal lithotomy position, awakened from anesthesia, and transferred to the recovery room in stable condition. ESTIMATED BLOOD LOSS: 10 mL. COMPLICATIONS: None. SPECIMEN: Kidney stone fragments. PLAN: The patient will follow up in the Urology Clinic in approximately two weeks for stent removal. THIAGO
[2020-02-10 21:06] LABS: CA Oxalate Dihy 100 % (.); Size 6x3 mm (.)
== END 2020-02-01 17:45 | disposition home or self-care (01) ==
LOC: M SDC 09:24
PROVIDERS: ATTEND Urology
DX: N20.0 Calculus of kidney (principal); M79.7 Fibromyalgia; J45.909 Unspecified asthma, uncomplicated; K21.9 Gastro-esophageal reflux disease without esophagitis; F43.10 Post-traumatic stress disorder, unspecified; F41.9 Anxiety disorder, unspecified; F32.9 Major depressive disorder, single episode, unspecified; Z91.040 Latex allergy status; Z91.041 Radiographic dye allergy status; Z88.1 Allergy status to other antibiotic agents; Z88.5 Allergy status to narcotic agent; Z88.8 Allergy status to other drugs, medicaments and biological substances; Z91.018 Allergy to other foods; Z91.013 Allergy to seafood; Z79.899 Other long term (current) drug therapy; Z92.21 Personal history of antineoplastic chemotherapy; Z85.41 Personal history of malignant neoplasm of cervix uteri
CPT/HCPCS: 36415; 52332; 52352; 74420; 82365; 85610; 88300; C1769; C1894; C2617; J1100; J1885; J2250; J2405; J2765; J3010

== ENCOUNTER → 2020-02-06 | Outpatient (REF) | payer MEDICARE, MEDICAID ==
[~2020-02-06] MED LIST changes: -CONRAY-60 60% 50ML VIAL (Q9961) As Ordered ONE; -LIDOCAINE 2% 100MG/5ML SDV (FOR ANES.) As Ordered ONE; -LR 1,000 ML IV ONE; -MIDAZOLAM INJ 2MG/2ML VIAL (J2250 PER 1MG) As Ordered ONE; -ONDANSETRON 4MG/2ML VIAL As Ordered ONE; +OXYB5TAB10 PO; +PERC5TAB12 PO; -ceFAZolin SOD 2 GM in IV 1 EA IV ONE; -dexameTHASONE 4 MG/ML 1ML VIAL (J1100 PER 1MG) As Ordered ONE; -fentaNYL 100 MCG/2 ML INJECTION (J3010) As Ordered ONE; -propofoL 200 MG/20 ML VIAL As Ordered ONE
[2020-02-06 18:26] LABS: APPEARANCE, URINE MANUAL CLOUDY (CLEAR); BILIRUBIN, URINE MANUAL OBSCURED (NEGATIVE); BLOOD URINE MANUAL POSITIVE (NEGATIVE); COLOR, URINE MANUAL AMBER (YELLOW); GLUCOSE, URINE (UA) MANUAL OBSCURED mg/dL (NEGATIVE); KETONE, URINE MANUAL OBSCURED mg/dL (NEGATIVE); LEUKOCYTE ESTERASE, URINE MAN OBSCURED (NEGATIVE); NITRITE, URINE MANUAL OBSCURED (NEGATIVE); PROTEIN, URINE MANUAL OBSCURED mg/dL (NEGATIVE); UROBILINOGEN, URINE MANUAL OBSCURED mg/dl (NORMAL)
[2020-02-06 18:29] LABS: BACTERIA, URINE NONE SEEN; HYALINE CAST, URINE NONE SEEN /lpf (0-1); RBC, URINE 30-40 /hpf (0-3); SQUAMOUS EPITHELIAL CELL URINE NONE SEEN /hpf (SMALL AMT)
== END ==
LOC: M SMT 16:50
PROVIDERS: ATTEND Nurse Practitioner Family
DX: R39.89 Other symptoms and signs involving the genitourinary system (principal)

== ENCOUNTER → 2020-02-20 | Outpatient (CLI) | payer MEDICARE, MEDICAID ==
--- NOTE | 2020-02-20 14:54 | REPVR ---
PROCEDURE INFORMATION: Exam: MR Cervical Spine Without Contrast Exam date and time: 02/20/2020 1:59 PM Age: 54 years old Clinical indication: Radicular pain (radiculopathy); Cervical region; Additional info: Cervical radiculopathy TECHNIQUE: Imaging protocol: Multiplanar magnetic resonance images of the cervical spine without contrast. COMPARISON: MRI-Spine,Cervical without con 08/17/2014 9:21 AM FINDINGS: Vertebrae: There is reversal of cervical lordosis centered at C4-C5. There is grade 1 retrolisthesis of C4 on C5 and C5 on C6. Alignment is not significantly changed. There is mild chronic anterior wedging of C5 greater than C4. There is disc desiccation. There is mild disc height loss at C5-C6 and C6-C7. Craniocervical junction appears unremarkable. Normal position of cerebellar tonsils without evidence of Chiari I malformation. There are mild endplate degenerative marrow changes greatest C5-C6. Vertebral body marrow signal is otherwise unremarkable. Spinal cord: Cervical spinal cord signal is normal without intrinsic cord lesions. C2-C3: There is small central disc protrusion. There is no cord compression. There is no evidence of spinal stenosis or neural foraminal narrowing. C3-C4: There is mild posterior osteophyte disc complex partially effacing ventral subarachnoid space. There is no significant cord compression or spinal stenosis. There are uncinate and facet osteophytes with moderate right and no significant left neural foraminal narrowing. C4-C5: There is posterior osteophyte disc complex. There is central to left paracentral protrusion which partially effaces ventral subarachnoid space. This causes left ventral cord flattening which is slightly accentuated by reversal of lordosis. There is no significant spinal stenosis. There are uncinate and facet osteophytes with moderate bilateral neural foraminal narrowing. C5-C6: There is posterior osteophyte disc complex, which partially effaces ventral subarachnoid space. There is no significant cord compression or spinal stenosis. There are uncinate and facet osteophytes with moderate right and mild left neural foraminal narrowing. C6-C7: There is posterior osteophyte disc complex. There is no significant cord compression or spinal stenosis. There are uncinate and facet osteophytes with moderate bilateral neural foraminal narrowing. C7-T1: There is no significant disc bulge. There is no significant cord compression. There is no neural foraminal or spinal stenosis. Vertebral arteries: Expected flow voids in the vertebral arteries. Soft tissues: Unremarkable. IMPRESSION: 1. Reversal of cervical lordosis and C4-C5 and C5-C6 retrolisthesis similar to prior examination. 2. Degenerative changes with multilevel neural foraminal narrowing. C4-C5 shows left paracentral protrusion with left ventral cord flattening slightly accentuated by reversal of lordosis. Findings appear not significantly changed to comparison study Electronically signed by: Lakeisha Carson On 02/20/2020 14:54:44 PM
== END ==
LOC: M RAD 13:14
PROVIDERS: ATTEND Nurse Practitioner Family
DX: M54.12 Radiculopathy, cervical region (principal); M43.12 Spondylolisthesis, cervical region; M50.321 Other cervical disc degeneration at C4-C5 level

== ENCOUNTER → 2020-03-26 | Outpatient (REF) | payer MEDICARE, MEDICAID ==
[2020-03-26 18:04] LABS: APPEARANCE, URINE CLEAR (CLEAR); BACTERIA, URINE AUTO NEGATIVE (NEGATIVE); BILIRUBIN, URINE AUTO NEGATIVE (NEGATIVE); BLOOD, URINE BLOOD NEGATIVE (NEGATIVE); COLOR, URINE YELLOW (YELLOW); GLUCOSE, URINE (UA) AUTO NEGATIVE (NEGATIVE); KETONE, URINE AUTO NEGATIVE (NEGATIVE); LEUKOCYTE ESTERASE, URINE AUTO NEGATIVE (NEGATIVE); NITRITE, URINE AUTO NEGATIVE (NEGATIVE); PROTEIN, URINE AUTO NEGATIVE (NEGATIVE); RBC, URINE AUTO 3 /HPF (0-3); SQUAMOUS EPITHELIAL CELL UR AU 0 /HPF (0-6); UROBILINOGEN, URINE AUTO 0.2 mg/dL (0.0-2.0); WBC, URINE AUTO 1 /HPF (0-3)
== END ==
LOC: M LABSMT 11:46 → M SFHCADAM 11:48
PROVIDERS: ATTEND Urology
DX: N13.2 Hydronephrosis with renal and ureteral calculous obstruction (principal)

== ENCOUNTER → 2020-03-27 | Outpatient (CLI) | payer MEDICARE, MEDICAID ==
--- NOTE | 2020-03-27 14:21 | REP ---
INDICATION: KIDNEY STONES. COMPARISON: 07/23/2016. TECHNIQUE: Real-time sonographic evaluation of the kidneys is performed. FINDINGS: Renal cortical echogenicity pattern is normal bilaterally and contours are smooth. The right kidney measures 10.3 x 5.8 x 4.4 cm. Left renal dimensions are 10.6 x 4.9 x 6.1 cm. There is no right hydronephrosis. There is moderate left hydronephrosis which is unchanged when compared to the prior study. Resistive index right kidney with duplex Doppler evaluation is 0.51 and left kidney 0.59. Left ureter is also dilated measuring 8-9 mm in diameter diffusely. There is no definite renal mass. There is a possible 4 mm echogenic calculus in the lower right kidney. The urinary bladder is not well distended and is grossly unremarkable. Ureteral jets could not be visualized with Doppler color evaluation. Incidental note is made of multiple gallstones in the gallbladder. IMPRESSION: Moderate stable left hydronephrosis. No right hydronephrosis. There is also left hydroureter. <Electronically signed by Bhanu Jerome > 03/27/20 [id number]
== END ==
LOC: M RAD 12:28
PROVIDERS: ATTEND Urology
DX: N20.0 Calculus of kidney (principal)

== ENCOUNTER → 2020-04-01 | Outpatient (REF) | payer MEDICARE, MEDICAID ==
[~2020-04-01] MED LIST changes: -MONT10TA4 PO; +MONT5TAB2 PO
[2020-04-01 18:23] LABS: APPEARANCE, URINE CLEAR (CLEAR); BACTERIA, URINE AUTO NEGATIVE (NEGATIVE); BILIRUBIN, URINE AUTO NEGATIVE (NEGATIVE); BLOOD, URINE BLOOD NEGATIVE (NEGATIVE); COLOR, URINE YELLOW (YELLOW); GLUCOSE, URINE (UA) AUTO NEGATIVE (NEGATIVE); KETONE, URINE AUTO NEGATIVE (NEGATIVE); LEUKOCYTE ESTERASE, URINE AUTO NEGATIVE (NEGATIVE); NITRITE, URINE AUTO NEGATIVE (NEGATIVE); PROTEIN, URINE AUTO NEGATIVE (NEGATIVE); RBC, URINE AUTO 3 /HPF (0-3); SPECIFIC GRAVITY URINE AUTO 1.015 (1.002-1.035); SQUAMOUS EPITHELIAL CELL UR AU 0 /HPF (0-6); UROBILINOGEN, URINE AUTO 0.2 mg/dL (0.0-2.0); WBC, URINE AUTO 1 /HPF (0-3)
== END ==
LOC: M SMT 16:46
PROVIDERS: ATTEND Urology
DX: N20.0 Calculus of kidney (principal)
CPT/HCPCS: 81001; 87086; G0463

== ENCOUNTER → 2020-04-16 | Outpatient (CLI) | payer MEDICARE, MEDICAID ==
--- NOTE | 2020-04-16 16:04 | REP ---
INDICATION: KIDNEY STONE. COMPARISON: Abdomen abd and pelvis CT without IV or bowel contrast dated 08/03/2016. TECHNIQUE: Abdomen and pelvis CT without IV or bowel contrast. FINDINGS: There are at least 2 small right renal calculi measuring up to 3 mm as a change from the prior study. There are calcifications forming in the renal pyramids also a change from the prior study. There are no ureteral calculi on the right. There is no perinephric stranding on the right. There are at least 3 or 4 small left renal calculi measuring up to 3 mm. Calcifications can also be seen forming in some of the left renal pyramids. There is no left hydronephrosis. There are no left ureteral calculi. The previous left ureteral calculi are no longer identified. There is no left perinephric stranding. The visualized lung nelson are unremarkable. The unenhanced hepatic parenchyma is unremarkable. The gallbladder, pancreas and spleen are unremarkable. The adrenals are unremarkable. The abdominal aorta is unremarkable. There is no periaortic adenopathy or mass. There is no bowel distention or obstruction. The mesentery is unremarkable. Pelvis: The pelvic bowel loops are unremarkable. The patient reportedly has an appendectomy. The uterus is not identified suggestive of hysterectomy. This should be correlated with the patient's surgical history. The uterus may merely be very atrophic. There is questionably a right adnexal cyst measuring up to 3.9 cm in diameter versus artifact from bowel loops. This could be confirmed by ultrasound. IMPRESSION: There are multiple small nonobstructive renal calculi bilaterally as described. And there appear to be calculi forming in the renal pyramids bilaterally. There is no hydronephrosis on the right or the left. There are no ureteral calculi on the right or the left. The previous left ureteral calculi are no longer present. There is no perinephric stranding. Lyon question hysterectomy versus atrophic uterus. The appendix is reportedly surgically absent. There is questionably a right adnexal cyst measuring up to 3.9 cm versus artifact from bowel loops. This could be confirmed by ultrasound. <Electronically signed by Bhanu Bradford > 04/16/20 [id number]
== END ==
LOC: M RAD 11:33
PROVIDERS: ATTEND Urology
DX: N20.0 Calculus of kidney (principal); N28.1 Cyst of kidney, acquired

== ENCOUNTER → 2020-05-31 | Outpatient (REF) | payer MEDICARE, MEDICAID ==
[~2020-05-31] MED LIST changes: +MONT10TA10 PO; -MONT5TAB2 PO; +TIZA1TAB12 PO; -TIZA2TAB6 PO
[2020-05-31 19:10] LABS: BLOOD UREA NITROGEN 22 MG/DL (7-18); CARBON DIOXIDE LEVEL 25 MEQ/L (21-32); CHLORIDE LEVEL 107 MEQ/L (98-107); CREATININE FOR GFR 0.92 MG/DL (0.55-1.30); FREE T4 1.06 NG/DL (0.76-1.46); GLOMERULAR FILTRATION RATE > 60.0 (>51); GLUCOSE, FASTING 81 MG/DL (70-100); POTASSIUM SERUM 4.3 MEQ/L (3.5-5.1); SODIUM LEVEL 141 MEQ/L (136-145)
== END ==
LOC: M SFHCADAM 11:41
PROVIDERS: ATTEND Physician Assistant
DX: F41.8 Other specified anxiety disorders (principal); L03.90 Cellulitis, unspecified; Z79.899 Other long term (current) drug therapy
CPT/HCPCS: 80048; 82306; 83735; 84439; 84443; G0463

== ENCOUNTER → 2020-07-16 | Outpatient (CLI) | payer MEDICARE, MEDICAID ==
--- NOTE | 2020-07-16 12:00 | REP ---
INDICATION: ENLARGED THYROID. COMPARISON: 09/03/2015. TECHNIQUE: Real-time sonographic evaluation of thyroid performed. FINDINGS: Right lobe measures 3.8 x 1.5 x 1.4 cm. Left lobe measures 3.2 x 1.5 x 0.8 cm. A heterogeneous solid nodule in the right lobe measures 1.9 x 1.0 x 1.0 cm essentially unchanged. There is a small hypoechoic nodule in the left upper pole measuring 3 mm in diameter. A solid heterogeneous nodule is seen in the left lower pole measuring 7 mm in diameter. IMPRESSION: The thyroid does not appear to be significantly enlarged. Bilateral nodules as discussed above. The largest nodule is in the right lobe and appears stable compared to 2016. Recommend follow-up ultrasound in 6-12 months. <Electronically signed by Bhanu Jerome > 07/16/20 [id number]
== END ==
LOC: M RAD 11:16
PROVIDERS: ATTEND Physician Assistant
DX: E04.9 Nontoxic goiter, unspecified (principal)

== ENCOUNTER → 2020-09-20 | Outpatient (CLI) | payer MEDICARE, MEDICAID ==
--- NOTE | 2020-09-20 16:08 | REP ---
INDICATION: ACUTE LEFT SIDED LOW BACK PAIN WITHOUT SCIATICA. COMPARISON: None. FINDINGS: Five views of the lumbosacral spine show no acute fracture, dislocation or subluxation. The intervertebral disc spaces are symmetric and well maintained. With the exception of moderate narrowing at L5-S1. There is no spondylolysis or spondylolisthesis. The pedicles are intact bilaterally and there is no destructive osseous lesion. IMPRESSION: Unremarkable lumbosacral spine series. With the exception of L5-S1 disc space narrowing.. <Electronically signed by Eddi Kohli > 09/20/20 [id number]
--- NOTE | 2020-09-20 16:45 | REP ---
INDICATION: ACUTE MID BACK. COMPARISON: Chest 03/14/2019. TECHNIQUE: AP and lateral views. FINDINGS: There is no compression fracture or malalignment. There is normal thoracic kyphosis. There is no significant disc space narrowing. The posterior elements appear intact. IMPRESSION: No fracture or dislocation. Negative thoracic spine series. <Electronically signed by Bhanu Jerome > 09/20/20 [id number]
== END ==
LOC: M ADAMS 14:19
PROVIDERS: ATTEND Family Medicine
DX: M54.5 Low back pain (principal)
CPT/HCPCS: 72072; 72110; 96372; G0463; J1885

== ENCOUNTER → 2020-11-06 | Outpatient (REF) | payer MEDICARE, MEDICAID ==
[~2020-11-06] MED LIST changes: +OMEP40CA4 PO; -OMEP40CA97 PO
[2020-11-06 13:31] LABS: APPEARANCE, URINE CLEAR (CLEAR); BACTERIA, URINE AUTO NEGATIVE (NEGATIVE); BILIRUBIN, URINE AUTO NEGATIVE (NEGATIVE); BLOOD, URINE BLOOD NEGATIVE (NEGATIVE); COLOR, URINE YELLOW (YELLOW); GLUCOSE, URINE (UA) AUTO NEGATIVE (NEGATIVE); KETONE, URINE AUTO NEGATIVE (NEGATIVE); LEUKOCYTE ESTERASE, URINE AUTO NEGATIVE (NEGATIVE); NITRITE, URINE AUTO NEGATIVE (NEGATIVE); PROTEIN, URINE AUTO NEGATIVE (NEGATIVE); RBC, URINE AUTO 3 /HPF (0-3); SPECIFIC GRAVITY URINE AUTO 1.011 (1.002-1.035); SQUAMOUS EPITHELIAL CELL UR AU 0 /HPF (0-6); UROBILINOGEN, URINE AUTO 0.2 mg/dL (0.0-2.0); WBC, URINE AUTO 1 /HPF (0-3)
== END ==
LOC: M SFHCADAM 12:39
PROVIDERS: ATTEND Physician Assistant
DX: R31.0 Gross hematuria (principal)
CPT/HCPCS: 81001; 87086; G0463

== ENCOUNTER → 2020-11-13 | Outpatient (CLI) | payer MEDICARE, MEDICAID ==
--- NOTE | 2020-11-13 16:34 | REP ---
INDICATION: RADICULOPATHY. Recent injury 4 weeks ago. Low back pain with pain down the right leg. COMPARISON: Comparison MRI study of the lumbar spine is from October 10, 2015.. TECHNIQUE: Sagittal and axial T1 and T2-weighted scans are acquired in the usual fashion with and without fat saturation. Sequences include spin echo, turbo spin-echo, and STIR imaging sequences. FINDINGS: Lumbar vertebral body heights are preserved. Alignment is normal. There is no evidence of spondylolysis or spondylolisthesis. The tip of the conus medullaris is normal in position and appearance at L1. No extra vertebral abnormality is appreciated. Axial and sagittal images taken at L1-2 and L2-3 show no significant finding. At L3-4, there is degenerative disc narrowing. There is a left paracentral focal disc protrusion with a caudally extruded disc material indenting the left ventral margin of the thecal sac and extending over the posterior aspect of the L4 vertebral body to the left of midline. the disc extrusion extends 1.5 cm caudally from the level of the disc. This is a new finding compared with the 2016 prior study. No neural foraminal narrowing is seen. There is some bulging of the disc segment in the foramen on the left but no nerve root compression is seen. At L4-5, there is a broad-based disc protrusion indenting the ventral margin of the thecal sac. This extends caudally for 2-3 mm as well. There is bilateral foraminal disc bulging, right greater than left producing mild to moderate right-sided neural foraminal narrowing. no spinal stenosis is seen. There is mild facet hypertrophy bilaterally. At L5-S1, there is a left posterior broad-based disc protrusion which contacts the left S1 root. There is facet hypertrophy bilaterally. Bulging of the right foraminal disc segment produces neural foraminal narrowing and some nerve root compression. The left neural foramen appears adequate. IMPRESSION: Degenerative spondylosis changes L3-4 through L5-S1. Disc protrusions at L3-4, L4-5, and L5-S1 as noted above. Right-sided neural foraminal narrowing at 4 5 and 5 1. The disc at L3-4 is new compared to the 2016 prior study. The neural foraminal narrowing at 4 5 and 5 1 is new as well on the right. <Electronically signed by Elton Haddad > 11/13/20 [id number]
== END ==
LOC: M PLAIMG 13:48
PROVIDERS: ATTEND Nurse Practitioner Family
DX: M54.16 Radiculopathy, lumbar region (principal)

== ENCOUNTER → 2020-12-11 | Outpatient (REF) | payer MEDICARE, MEDICAID | LOC: M SFHCADAM 15:28 | PROVIDERS: ATTEND Physician Assistant | DX: R09.89 Other specified symptoms and signs involving the circulatory and respiratory systems (principal) | CPT/HCPCS: 87426; G0463; U0003 ==

== ENCOUNTER → 2021-01-22 | Outpatient (REF) | payer MEDICARE, MEDICAID | LOC: M SFHCADAM 13:32 | PROVIDERS: ATTEND Physician Assistant | DX: J32.9 Chronic sinusitis, unspecified (principal) ==

== ENCOUNTER → 2021-04-22 | Outpatient (REF) | payer MEDICARE, MEDICAID ==
[~2021-04-22] MED LIST changes: +KETO10TAB PO; +MYRB50TA PO; +TAMS1CAP17 PO
[2021-04-22 17:12] LABS: BASO % 0.3 % (0.0-1.0); EOS # 0.2 10^3/uL (0.0-0.5); EOS % 3.2 % (0.0-3.0); HEMATOCRIT 41.2 % (36.0-47.0); HEMOGLOBIN 14.1 g/dl (12.0-15.5); LYMPH # 1.4 10^3/uL (1.5-5.0); LYMPH % 23.2 % (24.0-44.0); MEAN CORPUSCULAR HEMOGLOBIN 28.8 pg (27.0-33.0); MEAN CORPUSCULAR HGB CONC 34.2 g/dl (32.0-36.5); MEAN CORPUSCULAR VOLUME 84.1 fl (80.0-96.0); MONO # 0.4 10^3/uL (0.0-0.8); MONO % 6.1 % (2.0-8.0); NEUTROPHILS # 4.2 10^3/uL (1.5-8.5); NEUTROPHILS % 66.9 % (36.0-66.0); PLATELET COUNT, AUTOMATED 246 10^3/uL (150-450); WHITE BLOOD COUNT 6.2 10^3/uL (4.0-10.0)
[2021-04-22 17:28] LABS: CHOLESTEROL RISK RATIO 5.828 (<5)
[2021-04-22 17:49] LABS: ALBUMIN 4.1 GM/DL (3.2-5.2); ALT/SGPT 19 U/L (12-78); BILIRUBIN,TOTAL 0.5 MG/DL (0.2-1.0); BLOOD UREA NITROGEN 17 MG/DL (7-18); CALCIUM LEVEL 9.7 MG/DL (8.5-10.1); CARBON DIOXIDE LEVEL 25 MEQ/L (21-32); CHLORIDE LEVEL 109 MEQ/L (98-107); CREATININE FOR GFR 0.85 MG/DL (0.55-1.30); FREE T4 1.08 NG/DL (0.76-1.46); GLOMERULAR FILTRATION RATE > 60.0 (>51); GLUCOSE, FASTING 94 MG/DL (70-100); POTASSIUM SERUM 3.9 MEQ/L (3.5-5.1); SODIUM LEVEL 141 MEQ/L (136-145); THYROID STIMULATING HORMONE 0.867 uIU/ML (0.358-3.740); TOTAL 25(OH) VITAMIN D 29.2 NG/ML (30.0-100.0); TOTAL PROTEIN 7.1 GM/DL (6.4-8.2)
[2021-04-22 18:21] LABS: APPEARANCE, URINE CLEAR (CLEAR); BACTERIA, URINE AUTO NEGATIVE (NEGATIVE); BILIRUBIN, URINE AUTO NEGATIVE (NEGATIVE); BLOOD, URINE BLOOD NEGATIVE (NEGATIVE); COLOR, URINE YELLOW (YELLOW); GLUCOSE, URINE (UA) AUTO NEGATIVE (NEGATIVE); KETONE, URINE AUTO NEGATIVE (NEGATIVE); LEUKOCYTE ESTERASE, URINE AUTO TRACE (NEGATIVE); MUCUS, URINE SMALL (NEGATIVE); NITRITE, URINE AUTO NEGATIVE (NEGATIVE); PROTEIN, URINE AUTO NEGATIVE (NEGATIVE); RBC, URINE AUTO 4 /HPF (0-3); SPECIFIC GRAVITY URINE AUTO 1.017 (1.002-1.035); SQUAMOUS EPITHELIAL CELL UR AU 0 /HPF (0-6); WBC, URINE AUTO 10 /HPF (0-3)
== END ==
LOC: M SFHCADAM 13:43
PROVIDERS: ATTEND Physician Assistant
DX: E55.9 Vitamin D deficiency, unspecified (principal); F41.8 Other specified anxiety disorders; F17.210 Nicotine dependence, cigarettes, uncomplicated; I10 Essential (primary) hypertension; E04.9 Nontoxic goiter, unspecified; N30.01 Acute cystitis with hematuria; Z13.220 Encounter for screening for lipoid disorders
CPT/HCPCS: 80053; 80061; 81001; 82306; 84439; 84443; 85025; 87086; G0463

== ENCOUNTER → 2021-04-24 | Outpatient (CLI) | payer MEDICARE, MEDICAID ==
[~2021-04-24] MED LIST changes: -KETO10TAB PO; -MYRB50TA PO; -TAMS1CAP17 PO
--- NOTE | 2021-04-24 15:40 | REP ---
INDICATION: HEMATURIA COMPARISON: Recent CT. TECHNIQUE: Real time robles scale and color Doppler ultrasound examination using curved array transducer. FINDINGS: Right kidney measures 10.1 x 5.2 x 5.4 cm (RI 0.69) and includes multiple nonobstructing intrarenal calculi. No hydronephrosis, cystic or renal mass lesion. Left kidney measures 10.1 x 6.1 x 5.2 cm (RI 0.71) with moderate hydroureteronephrosis, multiple nonobstructing intrarenal calculi as well as obstructing distal ureteral calculi. Findings are best detailed on current CT. Bladder demonstrates layering debris along with right ureteral jet. Left ureteral jet is not identified and consistent with obstruction. IMPRESSION: 1. Left-sided obstructive uropathy with multiple calcifications in the distal left ureter. 2. Bilateral nonobstructing nephroliths. <Electronically signed by Junior Branch > 04/24/21 [id number]
== END ==
LOC: M WHC 12:45
PROVIDERS: ATTEND Physician Assistant
DX: R31.9 Hematuria, unspecified (principal)

== ENCOUNTER → 2021-04-24 | Outpatient (CLI) | payer MEDICARE, MEDICAID ==
[~2021-04-24] MED LIST changes: +KETO10TAB PO; -MONT10TA10 PO; +MONT10TA97 PO; +MYRB50TA PO; +TAMS1CAP17 PO
== END ==
LOC: M RAD 14:00
PROVIDERS: ATTEND Physician Assistant
DX: R10.2 Pelvic and perineal pain (principal); R50.9 Fever, unspecified; R31.0 Gross hematuria; Z87.442 Personal history of urinary calculi

== ENCOUNTER → 2021-05-05 | Outpatient (CLI) | payer MEDICARE, MEDICAID | LOC: M LABSMTC 12:08 | PROVIDERS: ATTEND Anesthesiology | DX: Z01.812 Encounter for preprocedural laboratory examination (principal); Z11.52 Encounter for screening for COVID-19 ==

== ENCOUNTER → 2021-05-06 | Outpatient (REF) | payer MEDICARE, MEDICAID ==
[~2021-05-06] MED LIST changes: +MONT10TA10 PO; -MONT10TA97 PO
[2021-05-06 12:47] LABS: APPEARANCE, URINE CLEAR (CLEAR); BACTERIA, URINE AUTO NEGATIVE (NEGATIVE); BILIRUBIN, URINE AUTO NEGATIVE (NEGATIVE); BLOOD, URINE BLOOD NEGATIVE (NEGATIVE); COLOR, URINE YELLOW (YELLOW); GLUCOSE, URINE (UA) AUTO NEGATIVE (NEGATIVE); KETONE, URINE AUTO NEGATIVE (NEGATIVE); LEUKOCYTE ESTERASE, URINE AUTO NEGATIVE (NEGATIVE); NITRITE, URINE AUTO NEGATIVE (NEGATIVE); PROTEIN, URINE AUTO NEGATIVE (NEGATIVE); RBC, URINE AUTO 5 /HPF (0-3); SPECIFIC GRAVITY URINE AUTO 1.011 (1.002-1.035); SQUAMOUS EPITHELIAL CELL UR AU 0 /HPF (0-6); WBC, URINE AUTO 4 /HPF (0-3)
[2021-05-06 12:59] LABS: INR 0.98; PROTHROMBIN TIME 13.4 SECONDS (12.7-14.5)
== END ==
LOC: M SFHCADAM 11:38
PROVIDERS: ATTEND Nurse Practitioner Women's Health
DX: Z01.818 Encounter for other preprocedural examination (principal); N13.2 Hydronephrosis with renal and ureteral calculous obstruction; Z79.01 Long term (current) use of anticoagulants

== ENCOUNTER 2021-05-08 06:20 | Day surgery (SDC) | payer MEDICARE, MEDICAID ==
[~2021-05-08] VITALS: Ht 152.4 cm; Wt 72.8 kg
[~2021-05-08 06:20] MED LIST changes: +LIDOCAINE 1% MDV 20ML VIAL SQ PRN; +LR 1,000 ML IV ONE; -MYRB50TA PO; +ceFAZolin SOD 2 GM in IV 1 EA IV ONE
[2021-05-08] MEDS ORDERED: ALBUTEROL SULFATE 2.5 MG/0.5 ML INH NEB SOLN INH ONE (08:20)
[2021-05-08] MEDS ORDERED: SCOPOLAMINE 1MG TRANSDERMAL PATCH TOP ONE (08:40)
[2021-05-08] MEDS ORDERED: METOCLOPRAMIDE INJ 10MG/2ML VIAL (J2765 PER 1) As Ordered ONE (08:56)
[2021-05-08] MEDS ORDERED: fentaNYL 250 MCG/5 ML INJECTION (J3010) As Ordered ONE (08:56)
[2021-05-08] MEDS ORDERED: LIDOCAINE 2% 100MG/5ML SDV (FOR ANES.) As Ordered ONE (08:56)
[2021-05-08] MEDS ORDERED: ROCURONIUM BROMIDE 50 MG/5 ML VIAL As Ordered ONE (08:56)
[2021-05-08] MEDS ORDERED: ACETAMINOPHEN 1000MG 100ML IV BTL (OFIRMEV) (J0131 PER 10MG) As Ordered ONE (08:56)
[2021-05-08] MEDS ORDERED: SUGAMMADEX SODIUM 500 MG/5 ML VIAL (BRIDION) As Ordered ONE (08:56)
[2021-05-08] MEDS ORDERED: ONDANSETRON 4MG/2ML VIAL As Ordered ONE (08:56)
[2021-05-08] MEDS ORDERED: dexameTHASONE 4 MG/ML 1ML VIAL (J1100 PER 1MG) As Ordered ONE (08:56)
[2021-05-08] MEDS ORDERED: MIDAZOLAM INJ 2MG/2ML VIAL (J2250 PER 1MG) As Ordered ONE (08:56)
[2021-05-08] MEDS ORDERED: propofoL 200 MG/20 ML VIAL As Ordered ONE (08:56)
[2021-05-08] MEDS ORDERED: SCOPOLAMINE 1MG TRANSDERMAL PATCH As Ordered ONE (09:12)
--- NOTE | 2021-05-08 09:34 | REP ---
INDICATION: LEFT STENT PLACEMENT. COMPARISON: None. TECHNIQUE: Sh 4 spot views obtained during left-sided double pigtail stent placement. FINDINGS: The double pigtail stent is seen on the left the proximal portion of which is in the region of the renal pelvis and the distal portion of which is in the region of the urinary bladder on the left. IMPRESSION: As above. <Electronically signed by Eddi Kohli > 05/08/21 [id number]
[2021-05-08] MEDS ORDERED: ONDANSETRON 4MG/2ML VIAL IV PRN (09:50)
[2021-05-08] MEDS ORDERED: oxyCODONE 5MG TAB PO PRN (09:50)
[2021-05-08] MEDS ORDERED: LABETALOL 100MG/20ML VIAL IV PRN (09:50)
[2021-05-08] MEDS ORDERED: LR 1,000 ML IV SCH (09:50)
[2021-05-08] MEDS ORDERED: PERCOCET 5MG/325MG TAB PO PRN (09:55)
[2021-05-08] MEDS ORDERED: MYRB50TA PO (09:55)
[2021-05-08] MEDS: fentaNYL 100 MCG/2 ML INJECTION (J3010) IV PRN ×3 (09:57→10:17)
--- NOTE | 2021-05-08 10:34 | RO ---
OPERATIVE NOTE DATE OF OPERATION: 05/08/2021 PREOPERATIVE DIAGNOSES: Left kidney and ureteral stones. POSTOPERATIVE DIAGNOSIS: Left kidney and ureteral stones. PROCEDURE: Cystoscopy, left ureteroscopy with basket extraction of stones, left ureteral stent placement. SURGEON: Avni Cuellar MD BILLBOARD ERECTOR HELPER: None. ANESTHESIA: General. OPERATIVE INDICATIONS: This is a 56-year-old female who was found to have obstructing distal left ureteral stones measuring up to 3-4 mm in size as well as additional stones inside the left kidney. She is brought to the operating room today for treatment. DESCRIPTION OF PROCEDURE: The patient was brought to the operating room and general anesthesia was induced. Prophylactic antibiotics were infused. She was placed in the dorsal lithotomy position, prepped and draped in the usual sterile fashion. A resectoscope was inserted in the urethral meatus and advanced into the bladder. A guidewire was advanced up the left collecting system with a short semirigid ureteroscope and within the distal ureter, two stones were seen with one measuring around 5 mm in size and the other one was about 2-3 mm in size. Both stones were removed using a basket. I then examined the more proximal ureter and no additional stones were seen. I then advanced the ureteral access sheath up the left collecting system. I went up the access sheath with a flexible ureteroscope and then examined the left kidney thoroughly. The left kidney was severely dilated. There were several papillae with calcifications embedded in them. Some of these calcifications were released. These calcifications were then removed using basket. Once done, only very tiny stone debris was seen in the left kidney. At this point, I withdrew the ureteroscope along the access sheath and no additional stones were seen inside the ureter. I then utilized the guidewire to advance the 6 Amharic x 22-32 cm JJ ureteral stent up the left collecting system. The wire was removed and there were adequate coils of the stent in the left renal pelvis and in the bladder. The bladder was emptied of all fluids and this marked the conclusion of the procedure. The patient was taken out of dorsal lithotomy position, awakened from anesthesia and transported to the recovery room in stable condition. ESTIMATED BLOOD LOSS: 5 mL COMPLICATIONS: None. SPECIMENS: Kidney stones. PLAN: The patient will follow up in urology clinic in a few weeks for stent removal.
[2021-05-08 11:30] VITALS: BP 157/78
== END 2021-05-08 11:45 | disposition home or self-care (01) ==
LOC: M SDC 06:20
PROVIDERS: ATTEND Urology
DX: N13.2 Hydronephrosis with renal and ureteral calculous obstruction (principal); Z87.442 Personal history of urinary calculi; I10 Essential (primary) hypertension; G43.909 Migraine, unspecified, not intractable, without status migrainosus; F41.9 Anxiety disorder, unspecified; F32.9 Major depressive disorder, single episode, unspecified; K21.9 Gastro-esophageal reflux disease without esophagitis; M51.9 Unspecified thoracic, thoracolumbar and lumbosacral intervertebral disc disorder; E78.5 Hyperlipidemia, unspecified; E04.9 Nontoxic goiter, unspecified; J30.9 Allergic rhinitis, unspecified; K76.0 Fatty (change of) liver, not elsewhere classified; M79.7 Fibromyalgia; M54.9 Dorsalgia, unspecified; F43.10 Post-traumatic stress disorder, unspecified; R32 Unspecified urinary incontinence; F17.210 Nicotine dependence, cigarettes, uncomplicated; Z91.19 Patient's noncompliance with other medical treatment and regimen; Z79.899 Other long term (current) drug therapy; Z79.891 Long term (current) use of opiate analgesic; Z88.8 Allergy status to other drugs, medicaments and biological substances; Z91.041 Radiographic dye allergy status; Z91.013 Allergy to seafood; Z88.2 Allergy status to sulfonamides; Z88.1 Allergy status to other antibiotic agents; Z88.5 Allergy status to narcotic agent
CPT/HCPCS: 52320; 52332; 74420; 82365; 88300; C1769; C1894; C2617; J0131; J0690; J1100; J2250; J2405; J2765; J3010

== ENCOUNTER 2021-05-21 11:27 | Emergency (ER) | payer MEDICARE, MEDICAID ==
[~2021-05-21] VITALS: Ht 152.4 cm; Wt 68.2 kg
[~2021-05-21 11:27] MED LIST changes: -LIDOCAINE 1% MDV 20ML VIAL SQ PRN; -LR 1,000 ML IV ONE; -MONT10TA10 PO; +MONT10TA97 PO; +MYRB50TA PO; -ceFAZolin SOD 2 GM in IV 1 EA IV ONE
[2021-05-21] MEDS ORDERED: NS 500 ML IV ONE (13:05)
[2021-05-21] MEDS ORDERED: ONDANSETRON 4MG/2ML VIAL IV ONE (13:05)
[2021-05-21] MEDS: HYDROMORPHONE HCL 0.5 MG/ 0.5 ML SYRINGE (J1170 PER 1) IV PRN ×2 (13:30→15:18)
[2021-05-21 13:43] LABS: BASO % 0.5 % (0.0-1.0); EOS # 0.3 10^3/uL (0.0-0.5); EOS % 4.2 % (0.0-3.0); HEMATOCRIT 39.8 % (36.0-47.0); HEMOGLOBIN 13.2 g/dl (12.0-15.5); LYMPH # 1.3 10^3/uL (1.5-5.0); LYMPH % 19.4 % (24.0-44.0); MEAN CORPUSCULAR HEMOGLOBIN 29.5 pg (27.0-33.0); MEAN CORPUSCULAR HGB CONC 33.2 g/dl (32.0-36.5); MONO # 0.4 10^3/uL (0.0-0.8); MONO % 6.1 % (2.0-8.0); NEUTROPHILS # 4.6 10^3/uL (1.5-8.5); NEUTROPHILS % 69.3 % (36.0-66.0); PLATELET COUNT, AUTOMATED 245 10^3/uL (150-450); RED BLOOD COUNT 4.47 10^6/uL (4.00-5.40); WHITE BLOOD COUNT 6.6 10^3/uL (4.0-10.0)
[2021-05-21 14:12] LABS: ALBUMIN 4.1 GM/DL (3.2-5.2); ALT/SGPT 28 U/L (12-78); BILIRUBIN,DIRECT 0.2 MG/DL (0.0-0.2); BLOOD UREA NITROGEN 15 MG/DL (7-18); CALCIUM LEVEL 9.5 MG/DL (8.5-10.1); CARBON DIOXIDE LEVEL 27 MEQ/L (21-32); CHLORIDE LEVEL 110 MEQ/L (98-107); CREATININE FOR GFR 0.89 MG/DL (0.55-1.30); GLOMERULAR FILTRATION RATE > 60.0 (>51); GLUCOSE, FASTING 87 MG/DL (70-100); LIPASE 176 U/L (73-393); SODIUM LEVEL 143 MEQ/L (136-145)
[2021-05-21 15:14] VITALS: BP 178/85
== END 2021-05-21 15:38 | disposition home or self-care (01) ==
LOC: M ED 11:27
DX: R10.32 Left lower quadrant pain (principal); N13.30 Unspecified hydronephrosis; N13.4 Hydroureter; K21.9 Gastro-esophageal reflux disease without esophagitis; M79.7 Fibromyalgia; J45.909 Unspecified asthma, uncomplicated; F43.10 Post-traumatic stress disorder, unspecified; Z85.42 Personal history of malignant neoplasm of other parts of uterus; Z87.19 Personal history of other diseases of the digestive system; F17.200 Nicotine dependence, unspecified, uncomplicated; Z79.899 Other long term (current) drug therapy; Z91.041 Radiographic dye allergy status; Z91.018 Allergy to other foods; Z91.013 Allergy to seafood; Z91.040 Latex allergy status; Z88.2 Allergy status to sulfonamides; Z88.1 Allergy status to other antibiotic agents; Z88.8 Allergy status to other drugs, medicaments and biological substances; Z88.5 Allergy status to narcotic agent
CPT/HCPCS: 74176; 80048; 80076; 81001; 83690; 85025; 93041; 96361; 96374; 96375; 96376; 99284; J1170; J2405

== ENCOUNTER 2021-09-30 22:17 | Emergency (ER) | payer MEDICARE, MEDICAID ==
[~2021-09-30] VITALS: Ht 152.4 cm; Wt 68.2 kg
[2021-09-30 22:17] VITALS: BP 174/97
== END 2021-09-30 22:38 | disposition left against medical advice (07) ==
LOC: M ED 22:17
DX: Z53.21 Procedure and treatment not carried out due to patient leaving prior to being seen by health care provider (principal)

== ENCOUNTER → 2021-10-17 | Outpatient (CLI) | payer MEDICARE, MEDICAID | LOC: M RAD 11:30 | PROVIDERS: ATTEND Otolaryngology | DX: R07.0 Pain in throat (principal) ==

== ENCOUNTER → 2021-10-22 | Outpatient (CLI) | payer MEDICARE, MEDICAID ==
[2021-10-22 13:43] LABS: BASO # 0.1 10^3/uL (0.0-0.2); BASO % 0.6 % (0.0-1.0); EOS # 0.3 10^3/uL (0.0-0.5); EOS % 3.7 % (0.0-3.0); HEMATOCRIT 41.9 % (36.0-47.0); HEMOGLOBIN 14.2 g/dl (12.0-15.5); LYMPH # 2.1 10^3/uL (1.5-5.0); LYMPH % 24.4 % (24.0-44.0); MEAN CORPUSCULAR HEMOGLOBIN 28.9 pg (27.0-33.0); MEAN CORPUSCULAR HGB CONC 33.9 g/dl (32.0-36.5); MEAN CORPUSCULAR VOLUME 85.2 fl (80.0-96.0); MONO # 0.7 10^3/uL (0.0-0.8); MONO % 7.6 % (2.0-8.0); NEUTROPHILS # 5.6 10^3/uL (1.5-8.5); NEUTROPHILS % 63.4 % (36.0-66.0); PLATELET COUNT, AUTOMATED 243 10^3/uL (150-450); RED BLOOD COUNT 4.92 10^6/uL (4.00-5.40); WHITE BLOOD COUNT 8.7 10^3/uL (4.0-10.0)
[2021-10-22 13:55] LABS: INR 0.9; PROTHROMBIN TIME 12.6 SECONDS (12.7-14.5)
[2021-10-22 14:10] LABS: PARTIAL THROMBOPLASTIN TIME 29.2 SECONDS (25.9-37.0)
[2021-10-22 14:15] LABS: ALBUMIN 4.1 GM/DL (3.2-5.2); ALT/SGPT 26 U/L (12-78); BILIRUBIN,TOTAL 0.3 MG/DL (0.2-1.0); BLOOD UREA NITROGEN 18 MG/DL (7-18); CARBON DIOXIDE LEVEL 26 MEQ/L (21-32); CHLORIDE LEVEL 110 MEQ/L (98-107); CREATININE FOR GFR 0.99 MG/DL (0.55-1.30); GLOMERULAR FILTRATION RATE > 60.0 (>51); GLUCOSE, FASTING 108 MG/DL (70-100); SODIUM LEVEL 143 MEQ/L (136-145); TOTAL PROTEIN 7.1 GM/DL (6.4-8.2)
== END ==
LOC: M ADAMS 09:47
PROVIDERS: ATTEND Otolaryngology
DX: Z01.812 Encounter for preprocedural laboratory examination (principal); R06.02 Shortness of breath; R07.0 Pain in throat

== ENCOUNTER 2021-10-30 09:36 | Day surgery (SDC) | payer MEDICARE, MEDICAID ==
[~2021-10-30] VITALS: Ht 152.4 cm; Wt 73.8 kg
[~2021-10-30 09:36] MED LIST changes: +VITMTA PO
[2021-10-30] MEDS ORDERED: LR 1,000 ML IV SCH ×2 (10:10→11:50)
[2021-10-30] MEDS ORDERED: LIDOCAINE 1% SDV 5ML VIAL SC PRN (10:10)
[2021-10-30] MEDS ORDERED: LIDOCAINE 1% SDV 30ML VIAL As Ordered ONE (10:28)
[2021-10-30] MEDS ORDERED: OXYMETAZOLINE 0.05% NASAL SPRAY (AFRIN) As Ordered ONE (10:28)
[2021-10-30] MEDS ORDERED: NEOSPORIN TOP OINT 15GM As Ordered ONE (10:28)
[2021-10-30] MEDS ORDERED: LIDOCAINE W/EPINEPHRINE 1% 20ML VIAL As Ordered ONE (10:28)
[2021-10-30] MEDS ORDERED: METOCLOPRAMIDE INJ 10MG/2ML VIAL (J2765 PER 1) IV STA (10:49)
[2021-10-30] MEDS ORDERED: ONDANSETRON 4MG/2ML VIAL IV ONE (10:50)
[2021-10-30] MEDS ORDERED: MIDAZOLAM INJ 2MG/2ML VIAL (J2250 PER 1MG) As Ordered ONE (11:29)
[2021-10-30] MEDS ORDERED: SUGAMMADEX SODIUM 500 MG/5 ML VIAL (BRIDION) As Ordered ONE (11:29)
[2021-10-30] MEDS ORDERED: propofoL 200 MG/20 ML VIAL As Ordered ONE (11:29)
[2021-10-30] MEDS ORDERED: ONDANSETRON 4MG/2ML VIAL As Ordered ONE (11:29)
[2021-10-30] MEDS ORDERED: ROCURONIUM BROMIDE 50 MG/5 ML VIAL As Ordered ONE (11:29)
[2021-10-30] MEDS ORDERED: dexameTHASONE 4 MG/ML 1ML VIAL (J1100 PER 1MG) As Ordered ONE ×2 (11:29→11:47)
[2021-10-30] MEDS ORDERED: fentaNYL 100 MCG/2 ML INJECTION As Ordered ONE (11:29)
[2021-10-30] MEDS ORDERED: LIDOCAINE 2% 100MG/5ML SDV (FOR ANES.) As Ordered ONE (11:29)
[2021-10-30] MEDS ORDERED: ACETAMINOPHEN 1000MG 100ML IV BTL (OFIRMEV) (J0131 PER 10MG) As Ordered ONE (11:34)
[2021-10-30] MEDS ORDERED: ONDANSETRON 4MG/2ML VIAL IV PRN (11:50)
[2021-10-30] MEDS: fentaNYL 100 MCG/2 ML INJECTION IV PRN ×4 (12:07→12:24)
[2021-10-30 13:05] VITALS: BP 144/75
== END 2021-10-30 13:18 | disposition home or self-care (01) ==
LOC: M SDC 09:36
PROVIDERS: ATTEND Otolaryngology
DX: J38.1 Polyp of vocal cord and larynx (principal); R06.02 Shortness of breath; R91.1 Solitary pulmonary nodule; K02.9 Dental caries, unspecified; I10 Essential (primary) hypertension; M79.7 Fibromyalgia; G43.909 Migraine, unspecified, not intractable, without status migrainosus; F41.9 Anxiety disorder, unspecified; F32.A Depression, unspecified; K21.9 Gastro-esophageal reflux disease without esophagitis; M51.9 Unspecified thoracic, thoracolumbar and lumbosacral intervertebral disc disorder; J30.9 Allergic rhinitis, unspecified; E04.9 Nontoxic goiter, unspecified; E78.5 Hyperlipidemia, unspecified; Z87.442 Personal history of urinary calculi; Z91.19 Patient's noncompliance with other medical treatment and regimen; F17.210 Nicotine dependence, cigarettes, uncomplicated; Z79.899 Other long term (current) drug therapy; Z91.030 Bee allergy status; Z91.013 Allergy to seafood; Z91.041 Radiographic dye allergy status; Z91.018 Allergy to other foods; Z88.8 Allergy status to other drugs, medicaments and biological substances; Z88.2 Allergy status to sulfonamides; Z88.1 Allergy status to other antibiotic agents; Z88.5 Allergy status to narcotic agent; Z91.040 Latex allergy status
CPT/HCPCS: 31541; 87426; 88305; J0131; J1100; J2250; J2405; J3010

== ENCOUNTER → 2022-02-25 | Outpatient (REF) | payer MEDICARE, MEDICAID ==
[2022-02-25 17:31] LABS: ALBUMIN 4.2 GM/DL (3.2-5.2); ALT/SGPT 23 U/L (12-78); BILIRUBIN,TOTAL 0.6 MG/DL (0.2-1.0); BLOOD UREA NITROGEN 15 MG/DL (7-18); CALCIUM LEVEL 9.7 MG/DL (8.5-10.1); CARBON DIOXIDE LEVEL 29 MEQ/L (21-32); CHLORIDE LEVEL 104 MEQ/L (98-107); CREATININE FOR GFR 0.94 MG/DL (0.55-1.30); GLOMERULAR FILTRATION RATE > 60.0 (>51); GLUCOSE, FASTING 93 MG/DL (70-100); POTASSIUM SERUM 3.2 MEQ/L (3.5-5.1); SODIUM LEVEL 140 MEQ/L (136-145); TOTAL PROTEIN 7.6 GM/DL (6.4-8.2)
== END ==
LOC: M SFHCADAM 14:05
PROVIDERS: ATTEND Physician Assistant
DX: I10 Essential (primary) hypertension (principal)

== ENCOUNTER → 2022-03-26 | Outpatient (CLI) | payer MEDICARE | LOC: M RAD 10:06 | PROVIDERS: ATTEND Urology | DX: N20.0 Calculus of kidney (principal) ==

== ENCOUNTER → 2022-04-06 | Outpatient (REF) | payer MEDICARE, MEDICAID ==
[2022-04-06 18:05] LABS: APPEARANCE, URINE MANUAL CLEAR (CLEAR); BILIRUBIN, URINE MANUAL OBSCURED (NEGATIVE); BLOOD URINE MANUAL OBSCURED (NEGATIVE); COLOR, URINE MANUAL ORANGE (YELLOW); GLUCOSE, URINE (UA) MANUAL OBSCURED mg/dL (NEGATIVE); KETONE, URINE MANUAL OBSCURED mg/dL (NEGATIVE); LEUKOCYTE ESTERASE, URINE MAN OBSCURED (NEGATIVE); NITRITE, URINE MANUAL OBSCURED (NEGATIVE); PROTEIN, URINE MANUAL OBSCURED mg/dL (NEGATIVE); SPECIFIC GRAVITY,URINE MANUAL 1.015 (1.002-1.035); UROBILINOGEN, URINE MANUAL OBSCURED mg/dl (NORMAL)
[2022-04-06 18:16] LABS: BACTERIA, URINE NONE SEEN; HYALINE CAST, URINE NONE SEEN /lpf (0-1); RBC, URINE NONE SEEN /hpf (0-3); SQUAMOUS EPITHELIAL CELL URINE SMALL AMOUNT /hpf (SMALL AMT); WBC, URINE NONE SEEN /hpf (0-3)
== END ==
LOC: M SMT 16:47
PROVIDERS: ATTEND Physician Assistant
DX: N20.1 Calculus of ureter (principal)

== ENCOUNTER → 2022-04-17 | Outpatient (CLI) | payer MEDICARE, MEDICAID ==
[~2022-04-17] MED LIST changes: +HYDR-3490 PO; +HYDR-3713; +LOSA50TA28 PO; +MAGN400C PO; +POTA10808 PO
== END ==
LOC: M ADAMS 08:18
PROVIDERS: ATTEND Physician Assistant
DX: Z01.818 Encounter for other preprocedural examination (principal)

== ENCOUNTER → 2022-04-17 | Outpatient (REF) | payer MEDICARE, MEDICAID ==
[~2022-04-17] MED LIST changes: +ONDA-83 PO; +PYRI0.4T PO
[2022-04-17 13:15] LABS: APPEARANCE, URINE MANUAL CLEAR (CLEAR); COLOR, URINE MANUAL ORANGE (YELLOW); MAGNESIUM LEVEL 1.6 MG/DL (1.8-2.4)
[2022-04-17 13:16] LABS: BLOOD UREA NITROGEN 15 MG/DL (9-23); CARBON DIOXIDE LEVEL 29 MMOL/L (20-31); CHLORIDE LEVEL 108 MMOL/L (98-107); CREATININE FOR GFR 0.83 MG/DL (0.55-1.30); GLOMERULAR FILTRATION RATE > 60.0 (>51); GLUCOSE, FASTING 95 MG/DL (60-100); POTASSIUM SERUM 3.6 MMOL/L (3.5-5.1); SODIUM LEVEL 141 MMOL/L (136-145)
[2022-04-17 13:17] LABS: SPECIFIC GRAVITY,URINE MANUAL 1.015 (1.002-1.035)
[2022-04-17 13:18] LABS: BILIRUBIN, URINE MANUAL OBSCURED (NEGATIVE); BLOOD URINE MANUAL POSITIVE (NEGATIVE); GLUCOSE, URINE (UA) MANUAL NEGATIVE (NEGATIVE); KETONE, URINE MANUAL OBSCURED mg/dL (NEGATIVE); LEUKOCYTE ESTERASE, URINE MAN OBSCURED (NEGATIVE); NITRITE, URINE MANUAL OBSCURED (NEGATIVE); PROTEIN, URINE MANUAL OBSCURED mg/dL (NEGATIVE); UROBILINOGEN, URINE MANUAL OBSCURED mg/dl (NORMAL)
[2022-04-17 13:19] LABS: HEMATOCRIT 38.8 % (36.0-47.0); HEMOGLOBIN 12.5 g/dl (12.0-15.5); MEAN CORPUSCULAR HEMOGLOBIN 29.8 pg (27.0-33.0); MEAN CORPUSCULAR HGB CONC 32.2 g/dl (32.0-36.5); MEAN CORPUSCULAR VOLUME 92.6 fl (80.0-96.0); PLATELET COUNT, AUTOMATED 307 10^3/uL (150-450); RED BLOOD COUNT 4.19 10^6/uL (4.00-5.40); WHITE BLOOD COUNT 8.9 10^3/uL (4.0-10.0)
[2022-04-17 13:35] LABS: BACTERIA, URINE SMALL AMOUNT; HYALINE CAST, URINE NONE SEEN /lpf (0-1); SQUAMOUS EPITHELIAL CELL URINE SMALL AMOUNT /hpf (SMALL AMT)
== END ==
LOC: M SFHCADAM 08:15
PROVIDERS: ATTEND Physician Assistant
DX: Z01.818 Encounter for other preprocedural examination (principal)

== ENCOUNTER → 2022-04-19 | Outpatient (CLI) | payer MEDICARE, MEDICAID ==
[~2022-04-19] MED LIST changes: -ONDA-83 PO; -PYRI0.4T PO
== END ==
LOC: M LABSMTC 11:49
PROVIDERS: ATTEND Anesthesiology
DX: Z01.812 Encounter for preprocedural laboratory examination (principal)

== ENCOUNTER → 2022-04-20 | Outpatient (REF) | payer MEDICARE, MEDICAID | LOC: M SFHCADAM 14:37 | PROVIDERS: ATTEND Physician Assistant | DX: E83.42 Hypomagnesemia (principal) ==

== ENCOUNTER 2022-04-22 10:23 | Day surgery (SDC) | payer MEDICARE, MEDICAID ==
[~2022-04-22] VITALS: Ht 152.4 cm; Wt 75.7 kg
[~2022-04-22 10:23] MED LIST changes: +LIDOCAINE 2% 100MG/5ML SDV (FOR ANES.) As Ordered ONE; +MIDAZOLAM INJ 2MG/2ML VIAL As Ordered ONE; +ceFAZolin SOD 2 GM in IV 1 EA IV ONE; +ePHEDrine SULFATE 25 MG/5 ML(5MG/ML) SYRINGE As Ordered ONE; +fentaNYL 100 MCG/2 ML INJECTION As Ordered ONE; +propofoL 200 MG/20 ML VIAL As Ordered ONE
[2022-04-22] MEDS ORDERED: LR 1,000 ML IV SCH ×2 (10:50→13:20)
[2022-04-22] MEDS ORDERED: LIDOCAINE 1% SDV 5ML VIAL SC PRN (10:50)
[2022-04-22] MEDS ORDERED: ONDA-83 PO (11:15)
[2022-04-22] MEDS ORDERED: PYRI0.4T PO (11:15)
[2022-04-22] MEDS ORDERED: ISOVUE-300 61% 50ML VIAL As Ordered ONE (11:20)
[2022-04-22] MEDS ORDERED: SCOPOLAMINE 1MG TRANSDERMAL PATCH TOP ONE (11:30)
[2022-04-22] MEDS ORDERED: METOCLOPRAMIDE INJ 10MG/2ML VIAL As Ordered ONE (12:25)
[2022-04-22] MEDS ORDERED: ONDANSETRON 4MG 2ML VIAL As Ordered ONE (12:25)
[2022-04-22] MEDS ORDERED: KETOROLAC 60MG 2ML VIAL As Ordered ONE (12:25)
[2022-04-22] MEDS ORDERED: ACETAMINOPHEN 1000MG 100ML IV BAG As Ordered ONE (12:28)
[2022-04-22] MEDS ORDERED: fentaNYL 100 MCG/2 ML INJECTION As Ordered ONE ×2 (12:28→13:20)
[2022-04-22] MEDS ORDERED: ONDANSETRON 4MG 2ML VIAL IV PRN (13:20)
[2022-04-22] MEDS ORDERED: MYRB50TA PO (13:21)
[2022-04-22] MEDS: fentaNYL 100 MCG/2 ML INJECTION IV PRN ×2 (13:25→13:33)
[2022-04-22] MEDS: PERCOCET 5MG/325MG TAB PO PRN ×2 (13:37→14:25)
[2022-04-22 15:20] VITALS: BP 135/70
[2022-04-26 23:11] LABS: CA Oxalate Dihy 100 % (.); Size 3x2 mm (.)
== END 2022-04-22 15:35 | disposition home or self-care (01) ==
LOC: M SDC 10:23
PROVIDERS: ATTEND Urology
DX: N13.5 Crossing vessel and stricture of ureter without hydronephrosis (principal); N20.0 Calculus of kidney; I10 Essential (primary) hypertension; M79.7 Fibromyalgia; G43.909 Migraine, unspecified, not intractable, without status migrainosus; F41.9 Anxiety disorder, unspecified; F32.A Depression, unspecified; K21.9 Gastro-esophageal reflux disease without esophagitis; M51.9 Unspecified thoracic, thoracolumbar and lumbosacral intervertebral disc disorder; E78.5 Hyperlipidemia, unspecified; Z87.442 Personal history of urinary calculi; F17.210 Nicotine dependence, cigarettes, uncomplicated; Z79.899 Other long term (current) drug therapy; Z88.8 Allergy status to other drugs, medicaments and biological substances; Z88.2 Allergy status to sulfonamides; Z88.1 Allergy status to other antibiotic agents; Z91.030 Bee allergy status; Z91.013 Allergy to seafood; Z91.041 Radiographic dye allergy status; Z91.018 Allergy to other foods; Z91.040 Latex allergy status; Z88.5 Allergy status to narcotic agent
CPT/HCPCS: 52332; 52352; 52356; 74420; 82365; C1769; C1894; C2617; J0131; J0690; J1100; J1885; J2250; J2405; J2765; J3010

== ENCOUNTER 2022-04-27 13:48 | Emergency (ER) | payer MEDICARE, MEDICAID ==
[~2022-04-27] VITALS: Ht 152.4 cm; Wt 74.5 kg
[~2022-04-27 13:48] MED LIST changes: -LIDOCAINE 2% 100MG/5ML SDV (FOR ANES.) As Ordered ONE; -MIDAZOLAM INJ 2MG/2ML VIAL As Ordered ONE; +ONDA-83 PO; +PYRI0.4T PO; -ceFAZolin SOD 2 GM in IV 1 EA IV ONE; -ePHEDrine SULFATE 25 MG/5 ML(5MG/ML) SYRINGE As Ordered ONE; -fentaNYL 100 MCG/2 ML INJECTION As Ordered ONE; -propofoL 200 MG/20 ML VIAL As Ordered ONE
[2022-04-27 16:43] LABS: BASO % 0.4 % (0.0-1.0); EOS # 0.3 10^3/uL (0.0-0.5); HEMATOCRIT 36.4 % (36.0-47.0); HEMOGLOBIN 11.6 g/dl (12.0-15.5); LYMPH # 2.2 10^3/uL (1.5-5.0); LYMPH % 21.8 % (24.0-44.0); MEAN CORPUSCULAR HEMOGLOBIN 30.2 pg (27.0-33.0); MEAN CORPUSCULAR HGB CONC 31.9 g/dl (32.0-36.5); MEAN CORPUSCULAR VOLUME 94.8 fl (80.0-96.0); MONO # 0.7 10^3/uL (0.0-0.8); MONO % 6.9 % (2.0-8.0); NEUTROPHILS # 6.7 10^3/uL (1.5-8.5); NEUTROPHILS % 67.5 % (36.0-66.0); PLATELET COUNT, AUTOMATED 285 10^3/uL (150-450); RED BLOOD COUNT 3.84 10^6/uL (4.00-5.40)
[2022-04-27 16:53] LABS: INR 0.96
[2022-04-27 16:54] LABS: PARTIAL THROMBOPLASTIN TIME 26.7 SECONDS (24.8-34.2)
[2022-04-27 17:01] LABS: LIPASE 40 U/L (12-53)
[2022-04-27 17:03] LABS: ALBUMIN 3.8 G/DL (3.2-5.2); ALKALINE PHOSPHATASE 72 U/L (46-116); ALT/SGPT 13 U/L (7.0-40); AST/SGOT 10 U/L (<34); BILIRUBIN,DIRECT 0.3 MG/DL (<0.4); BILIRUBIN,TOTAL 0.8 MG/DL (0.3-1.2); BLOOD UREA NITROGEN 18 MG/DL (9-23); CARBON DIOXIDE LEVEL 25 MMOL/L (20-31); CHLORIDE LEVEL 111 MMOL/L (98-107); CREATININE FOR GFR 0.92 MG/DL (0.55-1.30); GLOMERULAR FILTRATION RATE > 60.0 (>51); GLUCOSE, FASTING 94 MG/DL (60-100); POTASSIUM SERUM 4.7 MMOL/L (3.5-5.1); SODIUM LEVEL 139 MMOL/L (136-145); TOTAL PROTEIN 6.7 G/DL (5.7-8.2)
[2022-04-27] MEDS ORDERED: NS 1,000 ML IV ONE (17:05)
[2022-04-27] MEDS ORDERED: KETOROLAC 30 MG/ML 1ML VIAL IV ONE (17:05)
[2022-04-27 18:15] LABS: RSV AMPLIFICATION NEGATIVE (NEGATIVE)
[2022-04-27] MEDS ORDERED: NORCO, ANEXSIA 5/325MG TABLET (HYDROcodone/ACETAMINOPHEN) PO ONE (19:15)
[2022-04-27] MEDS ORDERED: HYDR-3713 PO (19:16)
[2022-04-27] MEDS ORDERED: NITROFURANTOIN (MACROBID) 100 MG CAP PO ONE (19:20)
[2022-04-27 19:33] VITALS: BP 141/86
== END 2022-04-27 19:35 | disposition home or self-care (01) ==
LOC: M ED 13:48
DX: T83.84XA Pain due to genitourinary prosthetic devices, implants and grafts, initial encounter (principal); I10 Essential (primary) hypertension; K21.9 Gastro-esophageal reflux disease without esophagitis; J45.909 Unspecified asthma, uncomplicated; F41.9 Anxiety disorder, unspecified; F32.9 Major depressive disorder, single episode, unspecified; Z85.42 Personal history of malignant neoplasm of other parts of uterus; Z87.442 Personal history of urinary calculi; F17.200 Nicotine dependence, unspecified, uncomplicated; Z79.899 Other long term (current) drug therapy; Z91.041 Radiographic dye allergy status; Z91.013 Allergy to seafood; Z91.018 Allergy to other foods; Z91.040 Latex allergy status; Z88.2 Allergy status to sulfonamides; Z88.1 Allergy status to other antibiotic agents; Z88.8 Allergy status to other drugs, medicaments and biological substances; Z88.5 Allergy status to narcotic agent
CPT/HCPCS: 74176; 80048; 80076; 81000; 81015; 83690; 85025; 85610; 85730; 87086; 87631; 96361; 96374; 99283; J1885

== ENCOUNTER → 2022-05-22 | Outpatient (CLI) | payer MEDICARE, MEDICAID ==
[2022-05-22 16:16] LABS: APPEARANCE, URINE MANUAL CLEAR (CLEAR); COLOR, URINE MANUAL YELLOW (YELLOW)
[2022-05-22 16:17] LABS: BILIRUBIN, URINE MANUAL NEGATIVE (NEGATIVE); BLOOD URINE MANUAL NEGATIVE (NEGATIVE); GLUCOSE, URINE (UA) MANUAL NEGATIVE (NEGATIVE); KETONE, URINE MANUAL NEGATIVE (NEGATIVE); LEUKOCYTE ESTERASE, URINE MAN TRACE (NEGATIVE); NITRITE, URINE MANUAL NEGATIVE (NEGATIVE); PROTEIN, URINE MANUAL NEGATIVE (NEGATIVE); UROBILINOGEN, URINE MANUAL NORMAL (NORMAL)
[2022-05-22 16:32] LABS: BACTERIA, URINE SMALL AMOUNT; CALCIUM OXALATE CRYSTALS,URINE SMALL AMOUNT /hpf; HYALINE CAST, URINE NONE SEEN /lpf (0-1); MUCUS, URINE MOD AMOUNT (NEGATIVE); SQUAMOUS EPITHELIAL CELL URINE SMALL AMOUNT /hpf (SMALL AMT)
== END ==
LOC: M RAD 15:24
PROVIDERS: ATTEND Urology
DX: N20.0 Calculus of kidney (principal); N39.0 Urinary tract infection, site not specified

== ENCOUNTER → 2022-05-27 | Outpatient (REF) | payer MEDICARE, MEDICAID ==
[2022-05-27 18:23] LABS: MAGNESIUM LEVEL 2.1 MG/DL (1.8-2.4)
[2022-05-27 18:24] LABS: BLOOD UREA NITROGEN 13 MG/DL (9-23); CALCIUM LEVEL 9.7 MG/DL (8.5-10.1); CARBON DIOXIDE LEVEL 26 MMOL/L (20-31); CHLORIDE LEVEL 105 MMOL/L (98-107); CREATININE FOR GFR 0.83 MG/DL (0.55-1.30); GLOMERULAR FILTRATION RATE > 60.0 (>51); GLUCOSE, FASTING 88 MG/DL (60-100); POTASSIUM SERUM 4.2 MMOL/L (3.5-5.1); SODIUM LEVEL 139 MMOL/L (136-145)
== END ==
LOC: M SFHCADAM 15:21
PROVIDERS: ATTEND Physician Assistant
DX: E83.42 Hypomagnesemia (principal)

== ENCOUNTER 2022-06-11 11:44 | Inpatient (IN) | payer MEDICARE, MEDICAID ==
[~2022-06-11] VITALS: Ht 152.4 cm; Wt 72.2 kg
[2022-06-11] MEDS ORDERED: VANCOMYCIN HCL 1,500 MG in NS 250 ML IV ONE (13:20)
[2022-06-11 13:30] LABS: BASO % 0.6 % (0.0-1.0); EOS % 0.4 % (0.0-3.0); HEMATOCRIT 44.1 % (36.0-47.0); HEMOGLOBIN 14.8 g/dl (12.0-15.5); LYMPH % 18.8 % (24.0-44.0); MEAN CORPUSCULAR HEMOGLOBIN 30.1 pg (27.0-33.0); MEAN CORPUSCULAR HGB CONC 33.6 g/dl (32.0-36.5); MEAN CORPUSCULAR VOLUME 89.8 fl (80.0-96.0); MONO # 0.6 10^3/uL (0.0-0.8); MONO % 10.5 % (2.0-8.0); NEUTROPHILS # 3.8 10^3/uL (1.5-8.5); NEUTROPHILS % 69.3 % (36.0-66.0); PLATELET COUNT, AUTOMATED 196 10^3/uL (150-450); RED BLOOD COUNT 4.91 10^6/uL (4.00-5.40); WHITE BLOOD COUNT 5.4 10^3/uL (4.0-10.0)
[2022-06-11] MEDS: fentaNYL 100 MCG/2 ML INJECTION IV PRN ×2 (13:37→14:22)
[2022-06-11] MEDS ORDERED: VANCOMYCIN HCL 750 MG, VIAL MATE ADAPTER 1 EACH in D5W 250 ML IV ONE ×6 (13:45)
[2022-06-11 13:49] LABS: BLOOD UREA NITROGEN 15 MG/DL (9-23); CARBON DIOXIDE LEVEL 27 MMOL/L (20-31); CHLORIDE LEVEL 103 MMOL/L (98-107); CREATININE FOR GFR 0.72 MG/DL (0.55-1.30); GLOMERULAR FILTRATION RATE > 60.0 (>51); GLUCOSE, FASTING 104 MG/DL (60-100); POTASSIUM SERUM 3.3 MMOL/L (3.5-5.1); SODIUM LEVEL 137 MMOL/L (136-145)
[2022-06-11 14:07] LABS: RSV AMPLIFICATION NEGATIVE (NEGATIVE)
[2022-06-11] MEDS ORDERED: GABAPENTIN 400MG CAP PO ONE (14:35)
[2022-06-11] MEDS ORDERED: ONDANSETRON 4MG 2ML VIAL IV ONE (14:35)
[2022-06-11] MEDS ORDERED: LR 1,000 ML IV ONE (15:50)
[2022-06-11] MEDS ORDERED: fentaNYL 100 MCG/2 ML INJECTION IV ONE (16:15)
[2022-06-11] MEDS: valACYclovir HCL 500 MG TAB PO SCH ×2 (16:29→20:35)
[2022-06-11 17:31] LABS: ERYTHROCYTE SEDIMENTATION RATE 23 mm/hr (0-30)
[2022-06-11 17:39] VITALS: BP 164/75
[2022-06-11] MEDS ORDERED: ACETAMINOPHEN TAB 650MG DOSE (2X325MG) PO PRN (18:15)
[2022-06-11] MEDS ORDERED: GABA-283 PO (18:56)
[2022-06-11] MEDS ORDERED: DULO20CA27 PO (19:02)
[2022-06-11] MEDS ORDERED: ACET-897 PO (19:02)
[2022-06-11] MEDS ORDERED: HOME MED LIST COMPLETE! XX SCH (19:05)
[2022-06-11] MEDS: LR 1,000 ML IV SCH (19:22)
[2022-06-11] MEDS ORDERED: traMADol 50 MG TAB PO PRN (19:25)
[2022-06-11 20:30] VITALS: BP 133/60
[2022-06-11] MEDS: DULoxetine 20MG CAP (CYMBALTA) PO SCH (20:35)
[2022-06-11] MEDS ORDERED: IBUPROFEN 800 MG TAB PO ONE (20:35)
[2022-06-11] MEDS: MAGNESIUM OXIDE 400MG TAB (MAG-OX) PO SCH (20:35)
[2022-06-11] MEDS: TOBRADEX OPHTH OINT 3.5 GM OD SCH (20:36)
[2022-06-11] MEDS: tiZANidine 4 MG TAB PO SCH (20:36)
[2022-06-11] MEDS: OMEPRAZOLE 20MG CAP PO SCH (20:36)
[2022-06-11] MEDS: GABAPENTIN 400MG CAP PO SCH (20:36)
[2022-06-11] MEDS: SUCRALFATE 1 GM TAB PO SCH (20:36)
[2022-06-11] MEDS: SUMAtriptan SUCCINATE 25 MG TAB PO PRN (21:26)
[2022-06-11] MEDS: AMPICILLIN SOD/SULBACTAM SOD 3 GM in D5W MINI-BAG PLUS 100 ML IV SCH (21:27)
[2022-06-11] MEDS ORDERED: AMPICILLIN SOD/SULBACTAM SOD 3 GM in D5W MINI-BAG PLUS 100 ML IV SCH (22:00)
[2022-06-11] MEDS: LOSARTAN 50MG TABLET PO SCH (23:08)
[2022-06-11] MEDS: VANCOMYCIN HCL 1,000 MG, VIAL MATE ADAPTER 1 EACH in D5W 250 ML IV SCH (23:08)
[2022-06-12] MEDS: ONDANSETRON 4MG TAB PO PRN (02:23)
[2022-06-12] MEDS: AMPICILLIN SOD/SULBACTAM SOD 3 GM in D5W MINI-BAG PLUS 100 ML IV SCH ×2 (04:35→12:24)
[2022-06-12] MEDS ORDERED: KETOROLAC 30 MG/ML 1ML VIAL IV ONE (04:55)
[2022-06-12 05:55] VITALS: BP 109/59
[2022-06-12 06:30] LABS: HEMATOCRIT 40.7 % (36.0-47.0); HEMOGLOBIN 13.7 g/dl (12.0-15.5); MEAN CORPUSCULAR HGB CONC 33.7 g/dl (32.0-36.5); MEAN CORPUSCULAR VOLUME 89.1 fl (80.0-96.0); PLATELET COUNT, AUTOMATED 187 10^3/uL (150-450); RED BLOOD COUNT 4.57 10^6/uL (4.00-5.40); WHITE BLOOD COUNT 6.2 10^3/uL (4.0-10.0)
[2022-06-12] MEDS: VANCOMYCIN HCL 1,000 MG, VIAL MATE ADAPTER 1 EACH in D5W 250 ML IV SCH (06:33)
[2022-06-12] MEDS: LR 1,000 ML IV SCH ×2 (06:34→20:19)
[2022-06-12 06:58] LABS: BLOOD UREA NITROGEN 11 MG/DL (9-23); CALCIUM LEVEL 8.2 MG/DL (8.5-10.1); CARBON DIOXIDE LEVEL 29 MMOL/L (20-31); CHLORIDE LEVEL 106 MMOL/L (98-107); CREATININE FOR GFR 0.63 MG/DL (0.55-1.30); GLOMERULAR FILTRATION RATE > 60.0 (>51); GLUCOSE, FASTING 124 MG/DL (60-100); SODIUM LEVEL 141 MMOL/L (136-145)
[2022-06-12] MEDS ORDERED: POTASSIUM CHLORIDE 10MEQ SR TABLET PO ONE (07:30)
[2022-06-12] MEDS: ENOXAPARIN 40MG/0.4ML SYRINGE (J1650 PER 10MG) SC SCH (08:15)
[2022-06-12] MEDS: KCL 10MEQ/100ML SWI (KRUN) 10 MEQ in IV 1 EA IV SCH ×2 (08:15→09:30)
[2022-06-12] MEDS: valACYclovir HCL 500 MG TAB PO SCH ×3 (08:16→20:21)
[2022-06-12] MEDS: DULoxetine 20MG CAP (CYMBALTA) PO SCH ×2 (08:16→20:21)
[2022-06-12] MEDS: GABAPENTIN 400MG CAP PO SCH ×3 (08:16→20:20)
[2022-06-12] MEDS: MULTIVITAMINS/MINERALS THERAP 1 TAB PO SCH (08:16)
[2022-06-12] MEDS: CETIRIZINE (ZyrTEC) 10 MG TAB PO SCH (08:16)
[2022-06-12] MEDS: OMEPRAZOLE 20MG CAP PO SCH ×2 (08:16→20:20)
[2022-06-12] MEDS: SUCRALFATE 1 GM TAB PO SCH ×2 (08:17→20:20)
[2022-06-12] MEDS: LOSARTAN 50MG TABLET PO SCH (08:18)
[2022-06-12] MEDS: TOBRADEX OPHTH OINT 3.5 GM OD SCH (08:18)
[2022-06-12] MEDS ORDERED: TOBRADEX OPHTH OINT 3.5 GM OU SCH (09:00)
[2022-06-12] MEDS ORDERED: predniSONE 20 MG TAB PO SCH (09:00)
[2022-06-12] MEDS ORDERED: IBUPROFEN 100MG 5ML ORAL SUSP UDC PO PRN (09:25)
[2022-06-12] MEDS: SUMAtriptan SUCCINATE 25 MG TAB PO PRN ×2 (10:07→22:03)
[2022-06-12] MEDS: oxyCODONE 5MG TAB PO PRN ×2 (12:27→20:33)
[2022-06-12 14:52] LABS: VANCOMYCIN LEVEL TROUGH 15.9 UG/ML (10.0-20.0)
[2022-06-12 15:30] VITALS: BP 108/58
[2022-06-12] MEDS: VANCOMYCIN HCL 750 MG, VIAL MATE ADAPTER 1 EACH in D5W 250 ML IV SCH (15:40)
[2022-06-12] MEDS: IBUPROFEN 400MG TAB PO PRN (15:40)
[2022-06-12] MEDS: TOBRADEX OPHTH OINT 3.5 GM OU SCH ×2 (15:48→20:22)
[2022-06-12] MEDS: VANCOMYCIN HCL 500 MG in D5W MINI-BAG PLUS 100 ML IV SCH (16:52)
[2022-06-12] MEDS: PIPERACILLIN/TAZOBACTAM SOD 3.375 GM in D5W MINI-BAG PLUS 50 ML IV SCH (18:38)
[2022-06-12 20:13] VITALS: BP 104/65
[2022-06-12] MEDS: tiZANidine 4 MG TAB PO SCH (20:20)
[2022-06-12] MEDS: MAGNESIUM OXIDE 400MG TAB (MAG-OX) PO SCH (20:20)
[2022-06-13] MEDS: PIPERACILLIN/TAZOBACTAM SOD 3.375 GM in D5W MINI-BAG PLUS 50 ML IV SCH ×4 (00:10→18:49)
[2022-06-13] MEDS: VANCOMYCIN HCL 750 MG, VIAL MATE ADAPTER 1 EACH in D5W 250 ML IV SCH ×2 (02:46→16:08)
[2022-06-13] MEDS: ONDANSETRON 4MG TAB PO PRN (02:51)
[2022-06-13] MEDS: oxyCODONE 5MG TAB PO PRN ×4 (02:53→18:07)
[2022-06-13] MEDS: VANCOMYCIN HCL 500 MG in D5W MINI-BAG PLUS 100 ML IV SCH ×2 (03:59→17:28)
[2022-06-13 05:50] LABS: BASO % 0.4 % (0.0-1.0); EOS % 0.3 % (0.0-3.0); HEMATOCRIT 36.8 % (36.0-47.0); HEMOGLOBIN 12.6 g/dl (12.0-15.5); LYMPH # 1.9 10^3/uL (1.5-5.0); LYMPH % 28.2 % (24.0-44.0); MEAN CORPUSCULAR HEMOGLOBIN 30.3 pg (27.0-33.0); MEAN CORPUSCULAR HGB CONC 34.2 g/dl (32.0-36.5); MEAN CORPUSCULAR VOLUME 88.5 fl (80.0-96.0); MONO # 0.8 10^3/uL (0.0-0.8); MONO % 11.6 % (2.0-8.0); NEUTROPHILS % 59.2 % (36.0-66.0); PLATELET COUNT, AUTOMATED 208 10^3/uL (150-450); RED BLOOD COUNT 4.16 10^6/uL (4.00-5.40); WHITE BLOOD COUNT 6.7 10^3/uL (4.0-10.0)
[2022-06-13 06:10] LABS: BLOOD UREA NITROGEN 11 MG/DL (9-23); CALCIUM LEVEL 8.8 MG/DL (8.5-10.1); CARBON DIOXIDE LEVEL 29 MMOL/L (20-31); CHLORIDE LEVEL 103 MMOL/L (98-107); CREATININE FOR GFR 0.76 MG/DL (0.55-1.30); GLOMERULAR FILTRATION RATE > 60.0 (>51); GLUCOSE, FASTING 117 MG/DL (60-100); POTASSIUM SERUM 3.2 MMOL/L (3.5-5.1); SODIUM LEVEL 139 MMOL/L (136-145)
[2022-06-13 07:05] VITALS: BP 115/59
[2022-06-13] MEDS: IBUPROFEN 400MG TAB PO PRN (09:17)
[2022-06-13] MEDS: valACYclovir HCL 500 MG TAB PO SCH ×3 (09:18→20:53)
[2022-06-13] MEDS: CETIRIZINE (ZyrTEC) 10 MG TAB PO SCH (09:18)
[2022-06-13] MEDS: SUCRALFATE 1 GM TAB PO SCH ×2 (09:18→20:53)
[2022-06-13] MEDS: OMEPRAZOLE 20MG CAP PO SCH ×2 (09:18→20:53)
[2022-06-13] MEDS: ENOXAPARIN 40MG/0.4ML SYRINGE (J1650 PER 10MG) SC SCH (09:18)
[2022-06-13] MEDS: GABAPENTIN 400MG CAP PO SCH ×3 (09:18→20:54)
[2022-06-13] MEDS: MULTIVITAMINS/MINERALS THERAP 1 TAB PO SCH (09:18)
[2022-06-13] MEDS: LOSARTAN 50MG TABLET PO SCH (09:19)
[2022-06-13] MEDS: DULoxetine 20MG CAP (CYMBALTA) PO SCH ×2 (09:19→20:54)
[2022-06-13] MEDS: TOBRADEX OPHTH OINT 3.5 GM OU SCH ×3 (09:20→20:54)
[2022-06-13] MEDS ORDERED: POTASSIUM CHLORIDE 10MEQ SR TABLET PO ONE (09:25)
[2022-06-13] MEDS: SUMAtriptan SUCCINATE 25 MG TAB PO PRN (09:57)
[2022-06-13] MEDS: LACTOBACILLUS ACIDOPHILUS CAP (BACID) PO SCH ×2 (10:35→17:25)
[2022-06-13 14:40] VITALS: BP 136/83
[2022-06-13 20:00] VITALS: BP 114/59
[2022-06-13] MEDS: MAGNESIUM OXIDE 400MG TAB (MAG-OX) PO SCH (20:53)
[2022-06-13] MEDS: tiZANidine 4 MG TAB PO SCH (20:53)
[2022-06-14] MEDS: PIPERACILLIN/TAZOBACTAM SOD 3.375 GM in D5W MINI-BAG PLUS 50 ML IV SCH ×5 (00:54→23:07)
[2022-06-14] MEDS: ONDANSETRON 4MG TAB PO PRN (01:22)
[2022-06-14] MEDS: oxyCODONE 5MG TAB PO PRN ×4 (01:22→20:06)
[2022-06-14] MEDS: VANCOMYCIN HCL 750 MG, VIAL MATE ADAPTER 1 EACH in D5W 250 ML IV SCH (02:50)
[2022-06-14] MEDS: VANCOMYCIN HCL 500 MG in D5W MINI-BAG PLUS 100 ML IV SCH (04:05)
[2022-06-14 05:39] LABS: BASO # 0.1 10^3/uL (0.0-0.2); BASO % 0.9 % (0.0-1.0); EOS # 0.1 10^3/uL (0.0-0.5); EOS % 1.3 % (0.0-3.0); HEMATOCRIT 38.3 % (36.0-47.0); HEMOGLOBIN 12.9 g/dl (12.0-15.5); LYMPH # 2.9 10^3/uL (1.5-5.0); MEAN CORPUSCULAR HEMOGLOBIN 29.9 pg (27.0-33.0); MEAN CORPUSCULAR HGB CONC 33.7 g/dl (32.0-36.5); MEAN CORPUSCULAR VOLUME 88.9 fl (80.0-96.0); MONO # 0.6 10^3/uL (0.0-0.8); MONO % 8.1 % (2.0-8.0); NEUTROPHILS # 3.3 10^3/uL (1.5-8.5); NEUTROPHILS % 47.4 % (36.0-66.0); PLATELET COUNT, AUTOMATED 211 10^3/uL (150-450); RED BLOOD COUNT 4.31 10^6/uL (4.00-5.40)
[2022-06-14 06:00] VITALS: BP 114/58
[2022-06-14 06:06] LABS: BLOOD UREA NITROGEN 14 MG/DL (9-23); CALCIUM LEVEL 9.4 MG/DL (8.5-10.1); CARBON DIOXIDE LEVEL 28 MMOL/L (20-31); CHLORIDE LEVEL 106 MMOL/L (98-107); CREATININE FOR GFR 0.82 MG/DL (0.55-1.30); GLOMERULAR FILTRATION RATE > 60.0 (>51); GLUCOSE, FASTING 110 MG/DL (60-100); POTASSIUM SERUM 3.4 MMOL/L (3.5-5.1); SODIUM LEVEL 140 MMOL/L (136-145)
[2022-06-14] MEDS: MULTIVITAMINS/MINERALS THERAP 1 TAB PO SCH (09:43)
[2022-06-14] MEDS: SUCRALFATE 1 GM TAB PO SCH ×2 (09:43→20:04)
[2022-06-14] MEDS: GABAPENTIN 400MG CAP PO SCH (09:43)
[2022-06-14] MEDS: CETIRIZINE (ZyrTEC) 10 MG TAB PO SCH (09:43)
[2022-06-14] MEDS: DULoxetine 20MG CAP (CYMBALTA) PO SCH ×2 (09:43→20:04)
[2022-06-14] MEDS: OMEPRAZOLE 20MG CAP PO SCH ×2 (09:43→20:05)
[2022-06-14] MEDS: LACTOBACILLUS ACIDOPHILUS CAP (BACID) PO SCH ×2 (09:43→17:19)
[2022-06-14] MEDS: valACYclovir HCL 500 MG TAB PO SCH ×3 (09:44→20:05)
[2022-06-14] MEDS: ENOXAPARIN 40MG/0.4ML SYRINGE (J1650 PER 10MG) SC SCH (09:44)
[2022-06-14] MEDS: LOSARTAN 50MG TABLET PO SCH (09:44)
[2022-06-14] MEDS: TOBRADEX OPHTH OINT 3.5 GM OU SCH ×3 (09:45→20:06)
[2022-06-14] MEDS ORDERED: POTASSIUM CHLORIDE 10MEQ SR TABLET PO ONE (10:00)
[2022-06-14 14:00] VITALS: BP 125/61
[2022-06-14] MEDS: VANCOMYCIN HCL 1,000 MG, VIAL MATE ADAPTER 1 EACH in D5W 250 ML IV SCH (15:24)
[2022-06-14] MEDS: GABAPENTIN 300 MG CAP PO SCH ×2 (15:24→20:04)
[2022-06-14] MEDS: MAGNESIUM OXIDE 400MG TAB (MAG-OX) PO SCH (20:04)
[2022-06-14] MEDS: tiZANidine 4 MG TAB PO SCH (20:05)
[2022-06-14 20:41] VITALS: BP 142/75
[2022-06-14] MEDS: SUMAtriptan SUCCINATE 25 MG TAB PO PRN (23:13)
[2022-06-14] MEDS: IBUPROFEN 400MG TAB PO PRN (23:14)
[2022-06-15] MEDS: VANCOMYCIN HCL 1,000 MG, VIAL MATE ADAPTER 1 EACH in D5W 250 ML IV SCH ×2 (03:22→15:00)
[2022-06-15] MEDS: PIPERACILLIN/TAZOBACTAM SOD 3.375 GM in D5W MINI-BAG PLUS 50 ML IV SCH ×2 (05:36→11:30)
[2022-06-15 06:00] VITALS: BP 131/70
[2022-06-15 06:07] LABS: BASO # 0.1 10^3/uL (0.0-0.2); BASO % 0.8 % (0.0-1.0); EOS # 0.1 10^3/uL (0.0-0.5); EOS % 1.4 % (0.0-3.0); HEMATOCRIT 40.7 % (36.0-47.0); HEMOGLOBIN 13.9 g/dl (12.0-15.5); LYMPH # 3.4 10^3/uL (1.5-5.0); LYMPH % 42.3 % (24.0-44.0); MEAN CORPUSCULAR HEMOGLOBIN 29.9 pg (27.0-33.0); MEAN CORPUSCULAR HGB CONC 34.2 g/dl (32.0-36.5); MEAN CORPUSCULAR VOLUME 87.5 fl (80.0-96.0); MONO # 0.7 10^3/uL (0.0-0.8); MONO % 8.4 % (2.0-8.0); NEUTROPHILS # 3.8 10^3/uL (1.5-8.5); NEUTROPHILS % 46.8 % (36.0-66.0); PLATELET COUNT, AUTOMATED 250 10^3/uL (150-450); RED BLOOD COUNT 4.65 10^6/uL (4.00-5.40)
[2022-06-15 06:34] LABS: BLOOD UREA NITROGEN 17 MG/DL (9-23); CALCIUM LEVEL 9.6 MG/DL (8.5-10.1); CARBON DIOXIDE LEVEL 26 MMOL/L (20-31); CHLORIDE LEVEL 108 MMOL/L (98-107); CREATININE FOR GFR 0.89 MG/DL (0.55-1.30); GLOMERULAR FILTRATION RATE > 60.0 (>51); GLUCOSE, FASTING 89 MG/DL (60-100); POTASSIUM SERUM 3.2 MMOL/L (3.5-5.1); SODIUM LEVEL 140 MMOL/L (136-145)
[2022-06-15] MEDS: oxyCODONE 5MG TAB PO PRN ×2 (06:57→11:29)
[2022-06-15] MEDS ORDERED: POTASSIUM CHLORIDE 10MEQ SR TABLET PO ONE (07:35)
[2022-06-15 07:52] LABS: MAGNESIUM LEVEL 1.8 MG/DL (1.8-2.4)
[2022-06-15] MEDS: ENOXAPARIN 40MG/0.4ML SYRINGE (J1650 PER 10MG) SC SCH (10:04)
[2022-06-15] MEDS: GABAPENTIN 300 MG CAP PO SCH (10:05)
[2022-06-15] MEDS: valACYclovir HCL 500 MG TAB PO SCH (10:05)
[2022-06-15] MEDS: OMEPRAZOLE 20MG CAP PO SCH (10:05)
[2022-06-15] MEDS: MULTIVITAMINS/MINERALS THERAP 1 TAB PO SCH (10:06)
[2022-06-15] MEDS: DULoxetine 20MG CAP (CYMBALTA) PO SCH (10:06)
[2022-06-15] MEDS: SUCRALFATE 1 GM TAB PO SCH (10:06)
[2022-06-15] MEDS: LACTOBACILLUS ACIDOPHILUS CAP (BACID) PO SCH (10:06)
[2022-06-15] MEDS: CETIRIZINE (ZyrTEC) 10 MG TAB PO SCH (10:06)
[2022-06-15 10:08] VITALS: BP 136/76
[2022-06-15] MEDS: LOSARTAN 50MG TABLET PO SCH (10:08)
[2022-06-15] MEDS: TOBRADEX OPHTH OINT 3.5 GM OU SCH (10:09)
[2022-06-15] MEDS ORDERED: DULO20CA27 PO (14:22)
[2022-06-15] MEDS ORDERED: DEXA2TA PO (14:22)
[2022-06-15] MEDS ORDERED: VALT1TAB PO (14:22)
[2022-06-15] MEDS ORDERED: ZYVO1TAB PO (14:22)
[2022-06-15] MEDS ORDERED: TOBROPO OU (14:22)
[2022-06-15] MEDS ORDERED: LINEZOLID 600MG TABLET (ZYVOX) PO SCH (21:00)
== END 2022-06-15 16:05 | disposition home or self-care (01) | DRG 603 ==
LOC: M ED 11:44 → M ED INP 11:45 → ENRESERV 16:58 → M MSPAV 17:33 → OBSVTOIN 06-12 13:40
PROVIDERS: ADMIT Internal Medicine; ATTEND Internal Medicine
DX: L03.213 Periorbital cellulitis (principal); B02.30 Zoster ocular disease, unspecified; I10 Essential (primary) hypertension; K21.9 Gastro-esophageal reflux disease without esophagitis; F41.9 Anxiety disorder, unspecified; F32.A Depression, unspecified; G43.909 Migraine, unspecified, not intractable, without status migrainosus; M54.9 Dorsalgia, unspecified; K04.7 Periapical abscess without sinus; E87.6 Hypokalemia; G89.29 Other chronic pain; F17.200 Nicotine dependence, unspecified, uncomplicated; M79.7 Fibromyalgia; B95.62 Methicillin resistant Staphylococcus aureus infection as the cause of diseases classified elsewhere; Z79.899 Other long term (current) drug therapy; Z88.2 Allergy status to sulfonamides; Z88.1 Allergy status to other antibiotic agents; Z88.5 Allergy status to narcotic agent; Z88.6 Allergy status to analgesic agent; Z88.8 Allergy status to other drugs, medicaments and biological substances; Z91.013 Allergy to seafood; Z91.040 Latex allergy status; Z91.02 Food additives allergy status; Z87.442 Personal history of urinary calculi; Z91.018 Allergy to other foods; Z85.42 Personal history of malignant neoplasm of other parts of uterus; Z90.710 Acquired absence of both cervix and uterus

== ENCOUNTER → 2022-08-06 | Outpatient (CLI) | payer MEDICARE, MEDICAID ==
[~2022-08-06] MED LIST changes: +ACET-897 PO; +CIPR0.3S37 OD; -CIPR0.3S6 OD; +DEXA2TA PO; +DULO20CA27 PO; +GABA-283 PO; +TOBROPO OU; +VALT1TAB PO; +ZYVO1TAB PO
[2022-08-06 13:46] LABS: BASO # 0.1 10^3/uL (0.0-0.2); BASO % 0.5 % (0.0-1.0); EOS # 0.3 10^3/uL (0.0-0.5); EOS % 2.5 % (0.0-3.0); HEMATOCRIT 44.3 % (36.0-47.0); LYMPH # 1.9 10^3/uL (1.5-5.0); LYMPH % 19.2 % (24.0-44.0); MEAN CORPUSCULAR HEMOGLOBIN 31.1 pg (27.0-33.0); MEAN CORPUSCULAR HGB CONC 33.9 g/dl (32.0-36.5); MEAN CORPUSCULAR VOLUME 91.9 fl (80.0-96.0); MONO # 0.7 10^3/uL (0.0-0.8); MONO % 6.4 % (2.0-8.0); NEUTROPHILS # 7.2 10^3/uL (1.5-8.5); NEUTROPHILS % 71.1 % (36.0-66.0); PLATELET COUNT, AUTOMATED 287 10^3/uL (150-450); RED BLOOD COUNT 4.82 10^6/uL (4.00-5.40); WHITE BLOOD COUNT 10.1 10^3/uL (4.0-10.0)
[2022-08-06 13:48] LABS: ALBUMIN 4.1 G/DL (3.2-5.2); ALKALINE PHOSPHATASE 86 U/L (46-116); ALT/SGPT 21 U/L (7.0-40); AST/SGOT 8 U/L (<34); BILIRUBIN,TOTAL 0.4 MG/DL (0.3-1.2); BLOOD UREA NITROGEN 16 MG/DL (9-23); CALCIUM LEVEL 9.8 MG/DL (8.5-10.1); CARBON DIOXIDE LEVEL 26 MMOL/L (20-31); CHLORIDE LEVEL 108 MMOL/L (98-107); CREATININE FOR GFR 0.79 MG/DL (0.55-1.30); GLOMERULAR FILTRATION RATE > 60.0 (>51); GLUCOSE, FASTING 98 MG/DL (60-100); SODIUM LEVEL 140 MMOL/L (136-145); TOTAL PROTEIN 6.9 G/DL (5.7-8.2)
[2022-08-06 13:50] LABS: HEPATITIS B SURFACE ANTIBODY NEGATIVE (POSITIVE)
[2022-08-06 13:51] LABS: C REACTIVE PROTEIN QUANTITATIV < 0.40 MG/DL (<1.0)
[2022-08-06 13:53] LABS: IMMUNOGLOBULIN G 781 MG/DL (650-1600); IMMUNOGLOBULIN M 136.6 MG/DL (50-300)
[2022-08-06 14:15] LABS: HIV 1&2 SCREEN ATELLICA NEGATIVE (NEGATIVE)
[2022-08-07 14:08] LABS: % CD8 Pos Lymph 9.6 % (12.0-35.5); %CD4 Pos Lymphs 55.1 % (30.8-58.5); ABS Basophils 0.1 x10E3/uL (0.0-0.2); ABS Eosinophils 0.2 x10E3/uL (0.0-0.4); ABS Monocytes 0.6 x10E3/uL (0.1-0.9); ABS Neutophils 7.4 x10E3/uL (1.4-7.0); Abs CD4 Helper 1102 /uL (359-1519); Abs CD8 Suppres 192 /uL (109-897); CD4/CD8 Ratio 5.74 (0.92-3.72); Eosinophils 2 % (Not Estab.); HCT 43.4 % (34.0-46.6); HEPATITIS B CORE ANTIBODY IGG Negative (Negative); HGB 15.3 g/dL (11.1-15.9); Immature Grans 0 % (Not Estab.); Lymphocytes 19 % (Not Estab.); MCH 31.5 pg (26.6-33.0); MCHC 35.3 g/dL (31.5-35.7); MCV 89 fL (79-97); Monocytes 6 % (Not Estab.); Neutrophils 72 % (Not Estab.); Platelets 282 x10E3/uL (150-450); RBC 4.86 x10E6/uL (3.77-5.28); RDW 16.6 % (11.7-15.4); WBC 10.4 x10E3/uL (3.4-10.8)
== END ==
LOC: M PLALAB 10:24
PROVIDERS: ATTEND Internal Medicine Infectious Disease
DX: B02.30 Zoster ocular disease, unspecified (principal)

== ENCOUNTER 2022-09-22 17:21 | Emergency (ER) | payer MEDICARE, MEDICAID ==
[~2022-09-22] VITALS: Ht 152.4 cm; Wt 70.7 kg
[2022-09-22 17:21] VITALS: BP 132/76
== END 2022-09-22 20:00 | disposition left against medical advice (07) ==
LOC: M ED 17:21
DX: Z53.21 Procedure and treatment not carried out due to patient leaving prior to being seen by health care provider (principal)

== ENCOUNTER → 2022-10-13 | Outpatient (CLI) | payer MEDICARE, MEDICAID | LOC: M RAD 15:43 | PROVIDERS: ATTEND Family Medicine | DX: R91.1 Solitary pulmonary nodule (principal) ==

== ENCOUNTER → 2022-12-18 | Outpatient (CLI) | payer MEDICARE, MEDICAID ==
[~2022-12-18] MED LIST changes: -GABA-283 PO; +GABA-284 PO; -K-TA10TA2 PO; +POTA-165 PO
== END ==
LOC: M PLAIMG 13:43
PROVIDERS: ATTEND Pain Medicine Interventional Pain Medicine
DX: M54.16 Radiculopathy, lumbar region (principal)

== ENCOUNTER → 2022-12-23 | Outpatient (REF) | payer MEDICARE, MEDICAID | LOC: M SFHCDERM 17:26 | PROVIDERS: ATTEND Physician Assistant | DX: B02.30 Zoster ocular disease, unspecified (principal) ==

== ENCOUNTER → 2023-03-08 | Outpatient (CLI) | payer MEDICARE, MEDICAID ==
[~2023-03-08] MED LIST changes: -OXYB5TAB10 PO; +OXYB5TAB11 PO
== END ==
LOC: M PLALAB 13:53
PROVIDERS: ATTEND Obstetrics & Gynecology
DX: Z12.72 Encounter for screening for malignant neoplasm of vagina (principal); N83.201 Unspecified ovarian cyst, right side; Z85.42 Personal history of malignant neoplasm of other parts of uterus

== ENCOUNTER → 2023-06-13 | Outpatient (REF) | payer MEDICARE ==
[~2023-06-13] MED LIST changes: +DULO1CAP5 PO; +GABA-282 PO; +GABA800T4 PO
== END ==
LOC: M LAB REF 16:58
PROVIDERS: ATTEND Physician Assistant Medical
DX: B34.9 Viral infection, unspecified (principal)

== ENCOUNTER → 2023-07-08 | Outpatient (REF) | payer MEDICARE, MEDICAID ==
[~2023-07-08] MED LIST changes: -OXYB5TAB11 PO; +OXYB5TAB14 PO
[2023-07-09 11:51] LABS: APPEARANCE, URINE CLEAR (CLEAR); BACTERIA, URINE AUTO NEGATIVE (NEGATIVE); BILIRUBIN, URINE AUTO NEGATIVE (NEGATIVE); BLOOD, URINE BLOOD NEGATIVE (NEGATIVE); COLOR, URINE YELLOW (YELLOW); GLUCOSE, URINE (UA) AUTO NEGATIVE (NEGATIVE); KETONE, URINE AUTO NEGATIVE (NEGATIVE); LEUKOCYTE ESTERASE, URINE AUTO NEGATIVE (NEGATIVE); NITRITE, URINE AUTO NEGATIVE (NEGATIVE); PROTEIN, URINE AUTO NEGATIVE (NEGATIVE); RBC, URINE AUTO 1 /HPF (0-3); SPECIFIC GRAVITY URINE AUTO 1.009 (1.002-1.035); SQUAMOUS EPITHELIAL CELL UR AU 0 /HPF (0-6); UROBILINOGEN, URINE AUTO 0.2 mg/dL (0.0-2.0); WBC, URINE AUTO 0 /HPF (0-3)
== END ==
LOC: M SFHCWAGY 09:37
PROVIDERS: ATTEND Nurse Practitioner Family
DX: N39.0 Urinary tract infection, site not specified (principal); R39.15 Urgency of urination

== ENCOUNTER → 2023-08-20 | Outpatient (REF) | payer MEDICARE, MEDICAID ==
[2023-08-20 18:27] LABS: HEMATOCRIT 43.2 % (36.0-47.0); MEAN CORPUSCULAR HEMOGLOBIN 31.4 pg (27.0-33.0); MEAN CORPUSCULAR HGB CONC 34.7 g/dl (32.0-36.5); MEAN CORPUSCULAR VOLUME 90.6 fl (80.0-96.0); PLATELET COUNT, AUTOMATED 248 10^3/uL (150-450); RED BLOOD COUNT 4.77 10^6/uL (4.00-5.40); WHITE BLOOD COUNT 6.1 10^3/uL (4.0-10.0)
[2023-08-20 18:50] LABS: ALKALINE PHOSPHATASE 89 U/L (46-116); ALT/SGPT 21 U/L (7.0-40); AST/SGOT < 8 U/L (<34); BILIRUBIN,TOTAL 0.3 MG/DL (0.3-1.2); BLOOD UREA NITROGEN 13 MG/DL (9-23); CALCIUM LEVEL 9.5 MG/DL (8.5-10.1); CARBON DIOXIDE LEVEL 25 MMOL/L (20-31); CHLORIDE LEVEL 113 MMOL/L (98-107); CHOLESTEROL LEVEL 225 MG/DL (<200); CHOLESTEROL RISK RATIO 4.64 (<5); CREATININE FOR GFR 0.78 MG/DL (0.55-1.30); GLOMERULAR FILTRATION RATE > 60.0 (>51); GLUCOSE, FASTING 110 MG/DL (60-100); HDL CHOLESTEROL 48.4 MG/DL (>40); LDL CHOLESTEROL 143.8 MG/DL (<100); NON-HDL-C 176.6 MG/DL; POTASSIUM SERUM 4.3 MMOL/L (3.5-5.1); SODIUM LEVEL 142 MMOL/L (136-145); TOTAL PROTEIN 6.7 G/DL (5.7-8.2); TRIGLYCERIDES LEVEL 164 MG/DL (<150)
[2023-08-24 00:07] LABS: CREATININE, URINE 103.7 mg/dL (20.0-300.0)
== END ==
LOC: M LAB REF 16:45
PROVIDERS: ATTEND Physician Assistant
DX: I10 Essential (primary) hypertension (principal); B02.9 Zoster without complications; Z79.899 Other long term (current) drug therapy

== ENCOUNTER → 2023-09-03 | Outpatient (CLI) | payer MEDICARE | LOC: M RAD 16:58 | PROVIDERS: ATTEND Physician Assistant | DX: R05.3 Chronic cough (principal) ==

== ENCOUNTER → 2023-11-09 | Outpatient (CLI) | payer MEDICARE, MEDICAID ==
[2023-11-09 15:46] LABS: BASO # 0.1 10^3/uL (0.0-0.2); BASO % 0.7 % (0.0-1.0); EOS # 0.4 10^3/uL (0.0-0.5); EOS % 5.3 % (0.0-3.0); HEMATOCRIT 42.3 % (36.0-47.0); HEMOGLOBIN 14.4 g/dl (12.0-15.5); LYMPH # 2.2 10^3/uL (1.5-5.0); LYMPH % 29.1 % (24.0-44.0); MEAN CORPUSCULAR HEMOGLOBIN 31.2 pg (27.0-33.0); MEAN CORPUSCULAR VOLUME 91.6 fl (80.0-96.0); MONO # 0.5 10^3/uL (0.0-0.8); MONO % 6.5 % (2.0-8.0); NEUTROPHILS # 4.4 10^3/uL (1.5-8.5); NEUTROPHILS % 58.1 % (36.0-66.0); PLATELET COUNT, AUTOMATED 266 10^3/uL (150-450); RED BLOOD COUNT 4.62 10^6/uL (4.00-5.40); WHITE BLOOD COUNT 7.6 10^3/uL (4.0-10.0)
[2023-11-09 16:05] LABS: ERYTHROCYTE SEDIMENTATION RATE 17 mm/hr (0-30)
== END ==
LOC: M PLALAB 12:23
PROVIDERS: ATTEND Internal Medicine Infectious Disease
DX: Z86.19 Personal history of other infectious and parasitic diseases (principal); B02.29 Other postherpetic nervous system involvement

== ENCOUNTER → 2023-11-09 | Outpatient (CLI) | payer MEDICARE, MEDICAID | LOC: M RAD 08:09 | PROVIDERS: ATTEND Physician Assistant | DX: E78.5 Hyperlipidemia, unspecified (principal); K75.81 Nonalcoholic steatohepatitis (NASH); E04.1 Nontoxic single thyroid nodule; N20.0 Calculus of kidney ==

== ENCOUNTER → 2023-11-17 | Outpatient (REF) | payer MEDICARE, MEDICAID | LOC: M LAB REF 16:19 | PROVIDERS: ATTEND Physician Assistant | DX: Z79.899 Other long term (current) drug therapy (principal) ==

== ENCOUNTER → 2024-07-12 | Outpatient (REF) | payer MEDICARE, MEDICAID ==
[~2024-07-12] MED LIST changes: +GABA-1172 PO; +GABA-1490 PO; +GABA-1635 PO; -GABA-282 PO; -GABA600T4 PO; -GABA800T4 PO; -POTA10808 PO; +POTA10809 PO
== END ==
LOC: M LAB REF 17:35
PROVIDERS: ATTEND Physician Assistant
DX: Z79.899 Other long term (current) drug therapy (principal)

== ENCOUNTER → 2024-08-01 | Outpatient (CLI) | payer MEDICARE, MEDICAID ==
[2024-08-01 15:04] LABS: BASO # 0.1 10^3/uL (0.0-0.2); EOS # 0.2 10^3/uL (0.0-0.5); EOS % 3.8 % (0.0-3.0); HEMATOCRIT 42.3 % (36.0-47.0); HEMOGLOBIN 14.2 g/dl (12.0-15.5); LYMPH # 1.3 10^3/uL (1.5-5.0); LYMPH % 21.6 % (24.0-44.0); MEAN CORPUSCULAR HEMOGLOBIN 30.1 pg (27.0-33.0); MEAN CORPUSCULAR HGB CONC 33.6 g/dl (32.0-36.5); MEAN CORPUSCULAR VOLUME 89.8 fl (80.0-96.0); MONO # 0.6 10^3/uL (0.0-0.8); MONO % 10.5 % (2.0-8.0); NEUTROPHILS # 3.9 10^3/uL (1.5-8.5); NEUTROPHILS % 62.9 % (36.0-66.0); PLATELET COUNT, AUTOMATED 257 10^3/uL (150-450); RED BLOOD COUNT 4.71 10^6/uL (4.00-5.40); WHITE BLOOD COUNT 6.1 10^3/uL (4.0-10.0)
[2024-08-01 15:37] LABS: ALBUMIN 3.6 G/DL (3.2-5.2); ALKALINE PHOSPHATASE 79 U/L (35-104); ALT/SGPT 14 U/L (7.0-40); AST/SGOT < 8 U/L (<34); BILIRUBIN,TOTAL 0.3 MG/DL (0.3-1.2); BLOOD UREA NITROGEN 14 MG/DL (9-23); CALCIUM LEVEL 9.6 MG/DL (8.5-10.1); CARBON DIOXIDE LEVEL 28 MMOL/L (20-31); CHLORIDE LEVEL 105 MMOL/L (98-107); CHOLESTEROL LEVEL 158 MG/DL (<200); CREATININE FOR GFR 0.76 MG/DL (0.55-1.30); GLOMERULAR FILTRATION RATE > 60.0 (>51); GLUCOSE, FASTING 109 MG/DL (60-100); HDL CHOLESTEROL 29.8 MG/DL (>40); NON-HDL-C 128.2 MG/DL; POTASSIUM SERUM 3.6 MMOL/L (3.5-5.1); SODIUM LEVEL 141 MMOL/L (136-145); TOTAL PROTEIN 6.6 G/DL (5.7-8.2); TRIGLYCERIDES LEVEL 106 MG/DL (<150)
[2024-08-01 15:39] LABS: THYROID STIMULATING HORMONE 2.073 uIU/ML (0.55-4.78); TOTAL 25(OH) VITAMIN D 22.9 NG/ML (20.0-100.0)
[2024-08-01 15:57] LABS: HEPATITIS B SURFACE ANTIGEN NEGATIVE (NEGATIVE)
[2024-08-01 16:10] LABS: HIV 1&2 SCREEN NEGATIVE (NEGATIVE)
[2024-08-01 16:18] LABS: HEPATITIS B CORE ANTIBODY IGM NEGATIVE (NEGATIVE); HEPATITIS C VIRUS ABY INDEX 0.03 INDEX (<0.8)
== END ==
LOC: M LAB 14:39
PROVIDERS: ATTEND Family Medicine
DX: F11.20 Opioid dependence, uncomplicated (principal); E07.9 Disorder of thyroid, unspecified; E78.00 Pure hypercholesterolemia, unspecified

== ENCOUNTER 2024-11-14 15:39 | Emergency (ER) | payer MEDICARE, MEDICAID ==
[~2024-11-14] VITALS: Ht 152.4 cm; Wt 69.4 kg
[2024-11-14 16:38] LABS: BASO # 0.0 10^3/uL (0.0-0.2); BASO % 0.4 % (0.0-1.0); EOS # 0.3 10^3/uL (0.0-0.5); EOS % 4.0 % (0.0-3.0); LYMPH # 3.0 10^3/uL (1.5-5.0); LYMPH % 36.8 % (24.0-44.0); MONO # 0.6 10^3/uL (0.0-0.8); MONO % 7.5 % (2.0-8.0); NEUTROPHILS # 4.2 10^3/uL (1.5-8.5); NEUTROPHILS % 50.9 % (36.0-66.0); PLATELET COUNT, AUTOMATED 268 10^3/uL (150-450)
[2024-11-14 16:56] LABS: ERYTHROCYTE SEDIMENTATION RATE 52 mm/hr (0-30)
[2024-11-14] MEDS: ACETAMINOPHEN 500 MG TAB PO ONE (16:59)
[2024-11-14 18:37] VITALS: TEMP 98.5
[2024-11-14] MEDS: AMPICILLIN SOD/SULBACTAM SOD 3 GM in DEXTROSE 5% (D5W) MINI-BAG PLU 100 ML IV ONE (18:49)
[2024-11-14] MEDS ORDERED: AMOX500C PO (19:47)
[2024-11-14 20:00] VITALS: BP 129/68; O2SAT 90
== END 2024-11-14 20:27 | disposition home or self-care (01) ==
LOC: M ED 15:39
DX: R22.0 Localized swelling, mass and lump, head (principal); Z88.2 Allergy status to sulfonamides; Z88.6 Allergy status to analgesic agent; Z88.8 Allergy status to other drugs, medicaments and biological substances; Z91.018 Allergy to other foods; Z91.013 Allergy to seafood; Z91.041 Radiographic dye allergy status; Z79.1 Long term (current) use of non-steroidal anti-inflammatories (NSAID); Z79.2 Long term (current) use of antibiotics; Z79.899 Other long term (current) drug therapy; Z79.810 Long term (current) use of selective estrogen receptor modulators (SERMs)
CPT/HCPCS: 70490; 80047; 83605; 85025; 85652; 86140; 96365; 96366; 96375; 99284; J0295; J1100